=== PATIENT | female | born 1975 | race Caucasian/White ===

== ENCOUNTER 2017-02-09 03:56 | Emergency (ER) | payer MEDICARE, MEDICAID ==
[2017-02-09] MEDS ORDERED: Ketorolac INJ* 60 MG/2 ML VIAL IM ONE (04:31)
[2017-02-09 04:58] LABS: Hematocrit 42 % (35-47); Hemoglobin 14.1 g/dl (12.0-16.0); Mean Corpuscular HGB Conc 33 g/dl (31-36); Mean Corpuscular Hemoglobin 28 pg (27-31); Mean Corpuscular Volume 85 fL (80-97); Mean Platelet Volume 9 um3 (7.4-10.4); Red Cell Distribution Width 14 % (10.5-15); White Blood Count 9.4 10^3/ul (3.5-10.8)
[2017-02-09] MEDS ORDERED: NS 0.9% 1000 ML* 1,000 ML IV ONE (05:01)
[2017-02-09 05:02] LABS: Albumin 3.7 g/dL (3.2-5.2); BUN/Creatinine Ratio 11.4 (8-20); Calcium 8.6 mg/dL (8.6-10.3); EGFR African American 103.7 (>60); EGFR Non-African American 80.6 (>60); Globulin 2.8 g/dL (2-4); Potassium 3.6 mmol/L (3.5-5.0); Total Bilirubin 0.4 mg/dL (0.2-1.0); Total Protein 6.5 g/dL (6.4-8.9)
[2017-02-09] MEDS ORDERED: Azithromycin TAB* 250 MG PO ONE (05:34)
--- NOTE | 2017-02-09 05:34 | ED ---
I, Brad,Harmony, scribed for Nickolas Lind MD on 02/09/17 at 0434 . HPI Chest Pain - HPI Summary HPI Summary: This 42 y/o female presents to ED for acute onset of CP and SOB since 0130 AM tonight. Pt reports productive cough with green sputum production and subjective fever, but denies that CP is related to cough. Oxygen saturation was 100% on RA, and temperature was 98.9 F at triage. Pt has not taken any APAP or motrin to control her pain/fever. PMHx includes unspecified liver dz, gastric sleeve, anxiety, and depression. Pt is former smoker and nondrinker. - History of Current Complaint Chief Complaint: EDUpperRespComplaint Time Seen by Provider: 02/09/17 04:27 Hx Obtained From: Patient Onset/Duration: Started Hours Ago, Atraumatic, Still Present Timing: Constant Pain Intensity: 5 Pain Scale Used: 0-10 Numeric Chest Pain Location: Diffuse Chest Pain Radiates: No Character: Dull/Aching Aggravating Factor(s): Nothing Alleviating Factor(s): Nothing Associated Signs and Symptoms: Positive: Chest Pain, Shortness of Breath, Fever - subjective fever, Productive Cough - with green sputum production - Allergy/Home Medications Allergies/Adverse Reactions: Allergies Allergy/AdvReac Type Severity Reaction Status Date / Time Diphenhydramine Allergy Severe Tachycardia Verified 08/29/16 18:09 [From Benadryl] Prednisone Allergy Severe Hives Verified 08/29/16 18:09 Hydrocodone Allergy Hives Verified 08/29/16 18:09 invluenza vaccine Allergy Severe Hives Uncoded 11/10/12 17:47 pickles Allergy Severe Hives Uncoded 11/10/12 17:48 PPD Allergy Severe Hives Uncoded 11/10/12 17:47 PMH/Surg Hx/FS Hx/Imm Hx Endocrine/Hematology History: Reports: Hx Diabetes - type 2 Denies: Hx Thyroid Disease Cardiovascular History: Denies: Hx Hypertension Respiratory History: Denies: Hx Asthma, Hx Chronic Obstructive Pulmonary Disease (COPD) GI History: Denies: Hx Ulcer Musculoskeletal History: Denies: Hx Rheumatoid Arthritis, Hx Osteoporosis - Surgical History Surgery Procedure, Year, and Place: gastric sleve 06/27/15 Infectious Disease History: No Infectious Disease History: Denies: Hx Hepatitis, Hx Human Immunodeficiency Virus (HIV), Hx of Known/ Suspected MRSA, Traveled Outside the [place] in Last 30 Days - Family History Known Family History: Positive: Hypertension, Diabetes - Social History Alcohol Use: None Hx Substance Use: No Substance Use Type: Reports: None Substance Use Comment - Amount & Last Used: oxycodone Hx Tobacco Use: Yes Smoking Status (MU): Former Smoker Review of Systems Positive: Fever - subjective fever. Afebrile at triage Positive: Chest Pain - unrelated to cough Positive: Shortness Of Breath, Cough - productive cough with green sputum All Other Systems Reviewed And Are Negative: Yes Physical Exam Triage Information Reviewed: Yes Vital Signs On Initial Exam: Initial Vitals Temp Pulse Resp BP Pulse Ox 98.9 F 118 18 135/86 100 02/09/17 03:59 02/09/17 03:59 02/09/17 03:59 02/09/17 03:59 02/09/17 03:59 Vital Signs Reviewed: Yes Appearance: Positive: Well-Appearing, Pain Distress - mild discomfort Skin: Positive: Warm Head/Face: Positive: Normal Head/Face Inspection Eyes: Positive: CHRISTINE ENT: Positive: Hearing grossly normal Neck: Positive: Supple Respiratory/Lung Sounds: Positive: Breath Sounds Present, Rhonchi - few lower lung field rt>lt Cardiovascular: Positive: Tachycardia Abdomen Description: Positive: Nontender, Soft Bowel Sounds: Positive: Present Musculoskeletal: Positive: Strength/ROM Intact Neurological: Positive: Alert, Oriented to Person Place, Time Diagnostics - Vital Signs Vital Signs Temp Pulse Resp BP Pulse Ox 02/09/17 04:14 98.9 F 118 18 135/86 100 02/09/17 03:59 98.9 F 118 18 135/86 100 - Laboratory Lab Results: Lab Results 02/09/17 02/09/17 Range/Units 04:40 04:40 WBC 9.4 (3.5-10.8) 10^3/ul RBC 5.00 (4.0-5.4) 10^6/ul Hgb 14.1 (12.0-16.0) g/dl Hct 42 (35-47) % MCV 85 (80-97) fL MCH 28 (27-31) pg MCHC 33 (31-36) g/dl RDW 14 (10.5-15) % Plt Count 182 (150-450) 10^3/ul MPV 9 (7.4-10.4) um3 Neut % (Auto) 88.0 H (38-83) % Lymph % (Auto) 7.7 L (25-47) % Blanco % (Auto) 3.3 (1-9) % Eos % (Auto) 0.7 (0-6) % Baso % (Auto) 0.3 (0-2) % Absolute Neuts (auto) 8.2 H (1.5-7.7) 10^3/ul Absolute Lymphs (auto) 0.7 L (1.0-4.8) 10^3/ul Absolute Monos (auto) 0.3 (0-0.8) 10^3/ul Absolute Eos (auto) 0.1 (0-0.6) 10^3/ul Absolute Basos (auto) 0 (0-0.2) 10^3/ul Absolute Nucleated RBC 0 10^3/ul Nucleated RBC % 0 Sodium 136 (133-145) mmol/L Potassium 3.6 (3.5-5.0) mmol/L Chloride 104 (101-111) mmol/L Carbon Dioxide 24 (22-32) mmol/L Anion Gap 8 (2-11) mmol/L BUN 9 (6-24) mg/dL Creatinine 0.79 (0.51-0.95) mg/dL Est GFR ( Amer) 103.7 (>60) Est GFR (Non-Af Amer) 80.6 (>60) BUN/Creatinine Ratio 11.4 (8-20) Glucose 176 H (70-100) mg/dL Calcium 8.6 (8.6-10.3) mg/dL Total Bilirubin 0.40 (0.2-1.0) mg/dL AST 16 (13-39) U/L ALT 15 (7-52) U/L Alkaline Phosphatase 84 (34-104) U/L Total Protein 6.5 (6.4-8.9) g/dL Albumin 3.7 (3.2-5.2) g/dL Globulin 2.8 (2-4) g/dL Albumin/Globulin Ratio 1.3 (1-3) Result Diagrams: 02/09/17 04:40 02/09/17 04:40 Lab Statement: Any lab studies that have been ordered have been reviewed, and results considered in the medical decision making process. - Radiology CXR Radiology Interpretation Completed By: ED Physician - rll infiltrate Re-Evaluation - Re-Evaluation First Eval Change: Improved - pt feels better o2 95% with ambulation, but pt remains tachycardic. offered pt admission but pt states wants to go home as she has a 9yo autistic child. Advised to return to ed if sxs do not improve or worsen Chest Pain Course/Dx - Diagnoses Provider Diagnoses: Pneumonia Discharge - Discharge Plan Condition: Fair Disposition: HOME Prescriptions: Azithromycin TAB* [Zithromax TAB (Z-KVNG) 250 mg #6 tabs] 250 mg PO DAILY #7 tab Patient Education Materials: Azithromycin (By mouth), Pneumonia (ED) Forms: *Work Release Referrals: Maryjo Waldron MD [Primary Care Provider] - 2 Days Additional Instructions: Be sure to return to Emergency Department if your symptoms persist or worsen. The documentation as recorded by the Brad vann Soohyun accurately reflects the service I personally performed and the decisions made by me, Nickolas Lind MD.
[2017-02-09] MEDS ORDERED: Azithromycin IV(*) 500 MG in NS 0.9% 250 ML* 250 ML IVPB ONE (05:42)
[2017-02-09 06:33] VITALS: BP 115/86
--- NOTE | 2017-02-09 08:06 | RAD ---
Indication: Cough. Comparison is made with previous exam dated May 11, 2009. 2 views of the chest including dual energy PA views demonstrate no mediastinal shift. Airspace disease in the right base is noted. Findings are consistent with right basilar pneumonia. Left lung field is clear. IMPRESSION: Airspace disease in the right base consistent with right basilar pneumonia.
== END 2017-02-09 06:33 | disposition home or self-care (01) ==
LOC: ED 03:56
DX: J18.9 Pneumonia, unspecified organism (principal); R07.9 Chest pain, unspecified; R06.02 Shortness of breath; R50.9 Fever, unspecified; R05 Cough; Z87.891 Personal history of nicotine dependence
CPT/HCPCS: 36415; 71020; 80053; 85025; 96372; 99283; J0456; J1885

== ENCOUNTER 2017-02-09 16:36 | Inpatient (IN) | payer MEDICARE, MEDICAID ==
[2017-02-09] MEDS ORDERED: NS 0.9% 1000 ML* 1,000 ML IV ONE (18:31)
[2017-02-09] MEDS ORDERED: oxyCODONE TAB* 5 MG TAB PO ONE (19:03)
[2017-02-09] MEDS ORDERED: Ketorolac INJ* 30 MG/ML 1 ML VIAL IV PUSH ONE (19:03)
[2017-02-09 19:05] LABS: Hematocrit 39 % (35-47); Hemoglobin 12.8 g/dl (12.0-16.0); Mean Corpuscular HGB Conc 33 g/dl (31-36); Mean Corpuscular Hemoglobin 28 pg (27-31); Mean Corpuscular Volume 86 fL (80-97); Mean Platelet Volume 9 um3 (7.4-10.4); Red Blood Count 4.57 10^6/ul (4.0-5.4); Red Cell Distribution Width 14 % (10.5-15); White Blood Count 18.6 10^3/ul (3.5-10.8)
[2017-02-09 19:22] LABS: Albumin 3.3 g/dL (3.2-5.2); BUN/Creatinine Ratio 17.4 (8-20); Calcium 8.8 mg/dL (8.6-10.3); EGFR African American 121.2 (>60); EGFR Non-African American 94.2 (>60); Globulin 2.7 g/dL (2-4); Potassium 3.8 mmol/L (3.5-5.0); Total Bilirubin 0.5 mg/dL (0.2-1.0)
[2017-02-09] MEDS ORDERED: Ibuprofen TAB* 400 MG PO PRN (20:49)
[2017-02-09] MEDS ORDERED: Dextrose 50% Syringe 50 ML* 25 GM/50 ML SYRINGE IV PUSH PRN (20:49)
[2017-02-09] MEDS: Insulin LISPRO* 1 UNITS UNIT SUBCUT SCH (21:16)
[2017-02-09] MEDS ORDERED: Azithromycin IV* 500 MG ADVAN VIAL IVPB ONE (21:19)
[2017-02-09] MEDS: Azithromycin IV(*) 500 MG in NS 0.9% 250 ML* 250 ML IVPB SCH (21:21)
--- NOTE | 2017-02-09 21:22 | ED ---
Aida Jordan Erika, scribed for James Jay MD on 02/09/17 at 1954 . Respiratory - HPI Summary HPI Summary: Patient is a 42-year-old female presenting to the ED with a CC of cough. Patient reports that she was seen in the ED early this morning, and was diagnosed with pneumonia after CXR. She states she declined admission at that time. She reports that chest pain has improved since this morning, and SOB is unchanged. Patient also reports subjective fever, nausea, and dry-heaving - pt states she cannot vomit s/p gastric sleeve. She came back in today because she woke up at 15:00 today and coughed blood-tinged sputum, so came back to the ED. Pt reports she did take her Z-pac dose today. Patient also reports chronic back pain s/p injury, and reports she usually takes 5 mg oxycodone 4x/day, but did not take it since last night. Hx DM, benign masses on liver. - History of Current Complaint Chief Complaint: EDUpperRespComplaint Stated Complaint: DX PNEUMONIA/WORSENING SYMPTOMS Time Seen by Provider: 02/09/17 18:27 Hx Obtained From: Patient Onset/Duration: Gradual Onset, Still Present Timing: Constant Current Severity: Moderate Pain Intensity: 6 Character: Cough (Productive) Sputum Amount: Moderate Sputum Color: Green, Spencer-Tinged Aggravating Factor(s): Deep Breaths Associated Signs and Symptoms: Fever - subjective, SOB, Chest Pain with Cough - Allergy/Home Medications Allergies/Adverse Reactions: Allergies Allergy/AdvReac Type Severity Reaction Status Date / Time Diphenhydramine Allergy Severe Tachycardia Verified 02/09/17 16:53 [From Benadryl] Prednisone Allergy Severe Hives Verified 02/09/17 16:53 Hydrocodone Allergy Hives Verified 02/09/17 16:53 invluenza vaccine Allergy Severe Hives Uncoded 02/09/17 16:53 pickles Allergy Severe Hives Uncoded 02/09/17 16:53 PPD Allergy Severe Hives Uncoded 02/09/17 16:53 bleach Allergy Hives Uncoded 02/09/17 16:53 PMH/Surg Hx/FS Hx/Imm Hx Endocrine/Hematology History: Reports: Hx Diabetes - type 2 Denies: Hx Thyroid Disease Cardiovascular History: Denies: Hx Hypertension Respiratory History: Denies: Hx Asthma, Hx Chronic Obstructive Pulmonary Disease (COPD) GI History: Denies: Hx Ulcer Musculoskeletal History: Denies: Hx Rheumatoid Arthritis, Hx Osteoporosis - Surgical History Surgery Procedure, Year, and Place: gastric sleve 06/27/15 Infectious Disease History: No Infectious Disease History: Denies: Hx Hepatitis, Hx Human Immunodeficiency Virus (HIV), Hx of Known/ Suspected MRSA, Traveled Outside the [place] in Last 30 Days - Family History Known Family History: Positive: Hypertension, Diabetes - Social History Alcohol Use: None Hx Substance Use: No Substance Use Type: Reports: Prescribed Substance Use Comment - Amount & Last Used: oxycodone Hx Tobacco Use: Yes Smoking Status (MU): Former Smoker Review of Systems Positive: Fever - subjective Positive: Chest Pain Positive: Shortness Of Breath, Cough Positive: Nausea - with dry-heaving All Other Systems Reviewed And Are Negative: Yes Physical Exam Triage Information Reviewed: Yes Vital Signs On Initial Exam: Initial Vitals Temp Pulse Resp BP Pulse Ox 97.6 F 123 20 131/71 99 02/09/17 16:39 02/09/17 16:39 02/09/17 16:39 02/09/17 16:39 02/09/17 16:39 Vital Signs Reviewed: Yes Appearance: Positive: Well-Appearing, No Pain Distress, Obese Skin: Positive: Warm, Skin Color Reflects Adequate Perfusion, Soft Head/Face: Positive: Normal Head/Face Inspection Eyes: Positive: EOMI, CHRISTINE, Conjunctiva Clear ENT: Positive: Pharynx normal, TMs normal Neck: Positive: Supple, Nontender Respiratory/Lung Sounds: Positive: Breath Sounds Present, Other - Right sided basilar crackles. Negative: Wheezes Cardiovascular: Positive: Pulses are Symmetrical in both Upper and Lower Extremities, Tachycardia. Negative: Murmur, Rub Abdomen Description: Positive: Nontender, No Organomegaly, Soft. Negative: Distended, Guarding, Peritoneal Signs Bowel Sounds: Positive: Present Musculoskeletal: Positive: Strength/ROM Intact Neurological: Positive: Sensory/Motor Intact, Alert, Oriented to Person Place, Time, Normal Gait. Negative: Cerebellar Dysfunction Psychiatric: Positive: Affect/Mood Appropriate - Deepti Coma Scale Coma Scale Total: 15 Diagnostics - Vital Signs Vital Signs Temp Pulse Resp BP Pulse Ox 02/09/17 18:00 118 108/62 97 02/09/17 17:30 110 115/71 93 02/09/17 17:00 112 109/71 95 02/09/17 16:58 18 02/09/17 16:52 113 96 02/09/17 16:50 114/76 02/09/17 16:47 98.3 F 111 18 114/76 94 02/09/17 16:39 97.6 F 123 20 131/71 99 - Laboratory Lab Results: Lab Results 02/09/17 02/09/17 02/09/17 Range/Units 18:55 18:55 18:55 WBC 18.6 H (3.5-10.8) 10^3/ul RBC 4.57 (4.0-5.4) 10^6/ul Hgb 12.8 (12.0-16.0) g/dl Hct 39 (35-47) % MCV 86 (80-97) fL MCH 28 (27-31) pg MCHC 33 (31-36) g/dl RDW 14 (10.5-15) % Plt Count 180 (150-450) 10^3/ul MPV 9 (7.4-10.4) um3 Sodium 137 (133-145) mmol/L Potassium 3.8 (3.5-5.0) mmol/L Chloride 106 (101-111) mmol/L Carbon Dioxide 27 (22-32) mmol/L Anion Gap 4 (2-11) mmol/L BUN 12 (6-24) mg/dL Creatinine 0.69 (0.51-0.95) mg/dL Est GFR ( Amer) 121.2 (>60) Est GFR (Non-Af Amer) 94.2 (>60) BUN/Creatinine Ratio 17.4 (8-20) Glucose 170 H (70-100) mg/dL Lactic Acid 2.1 H* (0.5-2.0) mmol/L Calcium 8.8 (8.6-10.3) mg/dL Total Bilirubin 0.50 (0.2-1.0) mg/dL AST 11 L (13-39) U/L ALT 13 (7-52) U/L Alkaline Phosphatase 70 (34-104) U/L Total Protein 6.0 L (6.4-8.9) g/dL Albumin 3.3 (3.2-5.2) g/dL Globulin 2.7 (2-4) g/dL Albumin/Globulin Ratio 1.2 (1-3) Result Diagrams: 02/09/17 18:55 02/09/17 18:55 Lab Statement: Any lab studies that have been ordered have been reviewed, and results considered in the medical decision making process. Re-Evaluation - Re-Evaluation First Eval Re-Evaluation Time: 19:51 Comment: Patient's O2 Sat drops to 84-86 when talking to her. Patient will be admitted. Disposition - Diagnoses Provider Diagnoses: Pneumonia, Hypoxia, Tachycardia - Physician Notifications Discussed Care Of Patient With: Dr. Guzman (hospitalist) at 19:54 - agrees to admit Discharge - Discharge Plan Condition: Stable Disposition: ADMITTED TO [facility] The documentation as recorded by the Aida vann Erika accurately reflects the service I personally performed and the decisions made by Pierre barfield Afoma Frances, MD.
[2017-02-09] MEDS: BIOTIN 10000 MCG PO SCH (22:24)
[2017-02-09] MEDS: tiZANidine TAB* 2 MG PO SCH (23:05)
[2017-02-09] MEDS: traZODone TAB* 50 MG TAB PO SCH (23:05)
[2017-02-09] MEDS: Heparin VIAL(*) 5000 UNITS/ML VIAL (FIVE THOUSAND) SUBCUT SCH (23:06)
[2017-02-09] MEDS: cefTRIAXone VIAL(*) 1,000 MG in NS 0.9% 50 ML* 50 ML IVPB SCH (23:08)
[2017-02-10] MEDS: oxyCODONE TAB* 5 MG TAB PO SCH ×5 (00:27→19:29)
--- NOTE | 2017-02-10 04:34 | HP ---
HISTORY AND PHYSICAL: DATE OF ADMISSION: 02/09/17 CHIEF COMPLAINT: Cough and shortness of breath. HISTORY OF PRESENT ILLNESS: The patient is a 42-year-old woman who says she has recently had an upper respiratory infection and actually thought it was just allergies. She had been taking Zyrtec and Robitussin for which seemed to be helping. She also notes however that her son and had flu-like symptoms recent and had just gotten over that. However, she did have a runny nose and a cough that was productive of some yellow phlegm, but again she thought it was not infectious. This morning however she woke up and had significant chest pain and shortness of breath. It got to the point where she came to the hospital for evaluation. At that point, she had a chest x-ray, which did show a right lower lobe pneumonia. She was offered admission but declined at that time because she was feeling better. She had no wheezing and her chest pain had resolved with some Xanax she received in the ED. However, as the day progressed, she began to feel worse. She noticed she had a fever and had chills and sweats. She also woke up and took her Zithromax, which was prescribed to her in the ER and coughed up some blood-tinged sputum. She also noticed her rate was quite fast consistently over 100 and came back to the ER to accept admission. PAST MEDICAL HISTORY: She has a past medical history significant for masses in her liver which are being monitored annually, diabetes mellitus type 2, back injury giving her chronic back pain and anxiety. MEDICATIONS: Her current medications are as follows: 1. Metformin 500 mg twice daily. 2. Biotin 10,000 mcg twice daily. 3. Z-Go which she just received early 250 mg daily. 4. Xanax 0.25 mg 4 times a day as needed. 5. Lexapro 20 mg daily. 6. Trazodone 50 mg at bedtime. 7. Tizanidine 1 capsule at bedtime. 8. Oxycodone XR 5 mg 4 times a day. ALLERGIES: She has an allergy/adverse reaction to BENADRYL, PREDNISONE, HYDROCODONE, INFLUENZA VACCINE, PICKLES, PPD TEST and BLEACH. FAMILY HISTORY: She is adopted. SOCIAL HISTORY: Quit tobacco 8 years ago. Smoked a pack a day for 18 years. No alcohol or recreational drug use. She is on disability. She is . Her , Bret White, is her healthcare proxy. She has one child who has autism. REVIEW OF SYSTEMS: A 14-point review of systems was completed with the patient. All pertinent positives and negatives are in the history of present illness, otherwise it is negative. PHYSICAL EXAMINATION GENERAL: Pleasant woman, lying in bed, in no acute distress. VITAL SIGNS: Temperature 98.7 degrees, heart rate 119 beats per minute, respiratory rate 16 breaths per minute, pulse ox 95%, blood pressure 113/84. HEENT: Normocephalic, atraumatic. Pupils equal, round and reactive to light. Moist mucous membranes. NECK: Supple. No JVD, bruits, palpable thyroid or lymphadenopathy. CHEST: Some minimal right basilar crackles. CARDIOVASCULAR: S1, S2 appreciated, increased rate, regular rhythm. ABDOMEN: Positive bowel sounds in all 4 quadrants. Soft, nontender, nondistended. No hepatosplenomegaly. EXTREMITIES: No cyanosis, clubbing or edema. +2 pulses bilaterally. NEUROLOGIC: Alert and oriented x3. He moves all extremities. SKIN: No rashes or abnormalities. DIAGNOSTIC STUDIES/LABORATORY DATA: White count 18.6, hemoglobin 12.8, hematocrit 39, platelets 180. Sodium 137, potassium 3.8, chloride 106, CO2 27, BUN 12, creatinine 0.69, glucose 170, lactic acid 2.1. Chest x-ray done earlier was interpreted by Radiology as air space disease in the right base consistent with right basilar pneumonia. IMPRESSION: 1. Right lower lobe pneumonia. Placed the patient on Rocephin 1 g IV daily and Zithromax 500 mg IV daily. Check sputum for culture and sensitivity. Urine for legionella and pneumococcal antigen. Tessalon Perles for cough and ibuprofen p.r.n. for fever and pain as she does want a Tylenol with her liver masses. The patient appears to be also septic from this pneumonia with a white count of 18.6, a heart rate of 124 and being febrile. 2. Anxiety. Stable. Continue Lexapro and Xanax. 3. Diabetes mellitus. Hold metformin. Placed her on fingersticks with sliding scale insulin. 4. FEN. Consistent carb diet. 5. DVT prophylaxis. Heparin subcu. 6. The patient is a full code. TIME SPENT: Over 75 minutes were spent on this H and P, more than 40 minutes was spent in direct face to face contact with the patient in evaluation, physical exam, counseling, coordination of care. CC: Dr. Waldron* [id number]/[facility] #: [id number] OFELIA
[2017-02-10] MEDS: Heparin VIAL(*) 5000 UNITS/ML VIAL (FIVE THOUSAND) SUBCUT SCH ×3 (04:44→22:24)
[2017-02-10 07:00] LABS: Hematocrit 35 % (35-47); Hemoglobin 11.4 g/dl (12.0-16.0); Mean Corpuscular HGB Conc 33 g/dl (31-36); Mean Corpuscular Hemoglobin 28 pg (27-31); Mean Corpuscular Volume 86 fL (80-97); Mean Platelet Volume 10 um3 (7.4-10.4); Red Blood Count 4.03 10^6/ul (4.0-5.4); Red Cell Distribution Width 14 % (10.5-15); White Blood Count 14.4 10^3/ul (3.5-10.8)
[2017-02-10 07:20] LABS: BUN/Creatinine Ratio 20.3 (8-20); Calcium 7.9 mg/dL (8.6-10.3); EGFR African American 132.2 (>60); EGFR Non-African American 102.8 (>60); Potassium 3.5 mmol/L (3.5-5.0)
[2017-02-10] MEDS: Citalopram TAB* 40 MG PO SCH (08:49)
[2017-02-10] MEDS: Insulin LISPRO* 1 UNITS UNIT SUBCUT SCH (08:49)
[2017-02-10] MEDS: BIOTIN 10000 MCG PO SCH ×2 (08:51→22:25)
--- NOTE | 2017-02-10 11:23 | PN ---
Subjective Date of Service: 02/10/17 Interval History: Patient seen this morning. States that her chest pain has resolved. Still with productive cough, thinks she may have had some blood-tinge to the sputum this AM once, but since then has been green. Denies SOB. Has been ambulating. Anxious to leave because she wants to go to her [employer] tonight. Family History: Unchanged from Admission Social History: Unchanged from Admission Past Medical History: Unchanged from Admission Objective Active Medications: Alprazolam (Xanax Tab*) 0.25 mg PO QID PRN Benzonatate (Tessalon Cap*) 200 mg PO TID PRN Citalopram Hydrobromide (Celexa Tab*) 40 mg PO DAILY DAVINA Dextrose (D50w Syringe 50 Ml*) 12.5 gm IV PUSH .FOR FS < 60 - SS PRN Heparin Sodium (Porcine) (Heparin Vial(*)) 5,000 units SUBCUT Q8HR DAVINA Sodium Chloride (Ns 0.9% 1000 Ml*) 1,000 mls @ 100 mls/hr IV PER RATE DAVINA Azithromycin 500 mg/ Sodium (Chloride) 250 mls @ 250 mls/hr IVPB Q24H DAVINA Ceftriaxone Sodium 1,000 mg/ (Sodium Chloride) 50 mls @ 200 mls/hr IVPB Q24H DAVINA Ibuprofen (Motrin Tab*) 400 mg PO Q6H PRN Insulin Human Lispro (Humalog*) 0 units SUBCUT ACHS DAVINA (Biotin [Biotin Maximum Strength] 10 ,000 Mcg) 10,000 mcg PO BID DAVINA Oxycodone HCl (Roxycodone Tab*) 5 mg PO QID DAVINA Tizanidine HCl (Zanaflex Tab*) 4 mg PO BEDTIME DAVINA Trazodone HCl (Desyrel Tab*) 50 mg PO BEDTIME DAVINA Vital Signs 02/09/17 02/09/17 02/09/17 21:00 21:19 21:30 Temperature Pulse Rate 115 110 110 Respiratory Rate Blood Pressure 97/82 100/55 97/52 (mmHg) O2 Sat by Pulse 95 96 96 Oximetry 02/09/17 02/09/17 02/09/17 21:44 21:51 22:29 Temperature 98.7 F 98.0 F Pulse Rate 119 108 Respiratory 16 Rate Blood Pressure 113/84 107/69 (mmHg) O2 Sat by Pulse 95 93 Oximetry 02/10/17 02/10/17 02/10/17 03:39 06:40 07:50 Temperature 98.4 F 98.1 F Pulse Rate 82 102 Respiratory 16 16 16 Rate Blood Pressure 95/59 109/92 (mmHg) O2 Sat by Pulse 93 Oximetry Oxygen Devices in Use Now: None Appearance: Middle-aged, F, laying in bed in NAD Eyes: No Scleral Icterus Ears/Nose/Mouth/Throat: Mucous Membranes Moist Neck: NL Appearance and Movements; NL JVP Respiratory: Symmetrical Chest Expansion and Respiratory Effort, - - Rales in RML and RLL ward, good air movement Cardiovascular: NL Sounds; No Murmurs; No JVD, - - Mild tachycardia Abdominal: NL Sounds; No Tenderness; No Distention Lymphatic: No Cervical Adenopathy Extremities: No Edema Skin: No Rash or Ulcers Neurological: Alert and Oriented x 3 Result Diagrams: 02/10/17 06:21 02/10/17 06:21 Additional Lab and Data: Assess/Plan/Problems-Billing Assessment: CAP in a 42 yo F with hx of DM, chronic pain and anxiety - Patient Problems (1) CAP (community acquired pneumonia) Current Visit: Yes Comment: Leukocytosis persistent but improving. Continues to have some tachycardia this morning. Will continue IV CTX/Azithromycin for another 24 hours. Urine antigens pending. Continue IVF. (2) Diabetes Current Visit: Yes Comment: Resume home Metformin. Stop HISS. (3) Chronic pain Current Visit: Yes Comment: Continue home Oxycodone and Tizanidine (4) DVT prophylaxis Current Visit: Yes Comment: HSQ Status and Disposition: Inpatient for IV Abx
[2017-02-10] MEDS: metFORMIN* 500 MG TAB PO SCH ×2 (12:04→17:14)
[2017-02-10] MEDS: NS 0.9% 1000 ML* 1,000 ML IV SCH ×2 (12:04→22:21)
[2017-02-10] MEDS: Benzonatate CAP* 100 MG PO PRN (19:29)
[2017-02-10] MEDS: ALPRAZolam TAB* 0.25 MG PO PRN (22:21)
[2017-02-10] MEDS: cefTRIAXone VIAL(*) 1,000 MG in NS 0.9% 50 ML* 50 ML IVPB SCH (22:21)
[2017-02-10] MEDS: traZODone TAB* 50 MG TAB PO SCH (22:21)
[2017-02-10] MEDS: tiZANidine TAB* 2 MG PO SCH (22:21)
[2017-02-10] MEDS: Azithromycin IV(*) 500 MG in NS 0.9% 250 ML* 250 ML IVPB SCH (22:46)
[2017-02-11] MEDS: Heparin VIAL(*) 5000 UNITS/ML VIAL (FIVE THOUSAND) SUBCUT SCH (04:43)
[2017-02-11] MEDS: oxyCODONE TAB* 5 MG TAB PO SCH ×2 (06:28→07:33)
[2017-02-11] MEDS: BIOTIN 10000 MCG PO SCH (07:23)
[2017-02-11] MEDS: metFORMIN* 500 MG TAB PO SCH (07:32)
[2017-02-11] MEDS: Benzonatate CAP* 100 MG PO PRN (07:32)
[2017-02-11] MEDS: Citalopram TAB* 40 MG PO SCH (07:32)
[2017-02-11] MEDS: ALPRAZolam TAB* 0.25 MG PO PRN (07:32)
[2017-02-11 07:38] VITALS: BP 120/76
[2017-02-11 08:25] LABS: Hematocrit 35 % (35-47); Hemoglobin 11.7 g/dl (12.0-16.0); Mean Corpuscular HGB Conc 33 g/dl (31-36); Mean Corpuscular Hemoglobin 28 pg (27-31); Mean Corpuscular Volume 85 fL (80-97); Mean Platelet Volume 9 um3 (7.4-10.4); Red Blood Count 4.12 10^6/ul (4.0-5.4); Red Cell Distribution Width 14 % (10.5-15); White Blood Count 9.8 10^3/ul (3.5-10.8)
--- NOTE | 2017-02-11 09:00 | DCNOTE ---
Patient seen this morning. Reports feeling better overall, cough improved. Still with some SOB when ambulating but not significant. Anxious to go home. On exam, RRR, s1 ands s2 present, no m/g/r, lungs with some mild RLL rales, good air movement Tachycardia and leukocytosis resolved. Patient has azithromycin at home. Will rx additional Cefpodoxime and discharge home. Should f/u with PCP.
--- NOTE | 2017-02-11 22:49 | DS ---
DISCHARGE SUMMARY: DATE OF ADMISSION: 02/09/17 DATE OF DISCHARGE: 02/11/17 PCP: Maryjo Waldron MD PRINCIPAL DISCHARGE DIAGNOSIS: Community-acquired pneumonia. SECONDARY DIAGNOSES: 1. Type 2 diabetes. 2. Chronic back pain. 3. Anxiety. DISCHARGE MEDICATION REGIMEN: 1. Cefpodoxime 200 mg by mouth 2 times daily. 2. Oxycodone 5 mg by mouth 4 times daily. 3. Tizanidine 4 mg by mouth at bedtime. 4. Trazodone 50 mg by mouth at bedtime. 5. Lexapro 20 mg by mouth daily. 6. Xanax 0.25 mg by mouth 4 times daily as needed for anxiety. 7. Azithromycin 250 mg by mouth daily. 8. Biotin 10,000 mcg by mouth 2 times daily. 9. Metformin 500 mg by mouth 2 times daily. STUDIES DONE: Chest x-ray. Impression: Airspace disease in the right base consistent with right basilar pneumonia. HPI AND HOSPITAL SUMMARY: Please see the full history and physical by Dr. Reji Guzman for full details. Briefly, Ms. White is a 42-year-old female with the past medical history as above who presented to the hospital with cough, URI symptoms, and chest pain. The patient was initially seen in the ED on 02/09/17 , early in the morning was diagnosed with pneumonia. She did not want to stay in the hospital, so she was sent home on azithromycin. However, over the day and into the evening, her symptoms worsened and she came back to the hospital. At that time, she was noted to be tachycardic, had a white blood cell count of 18. She was admitted to the hospital for IV antibiotics. She received ceftriaxone and azithromycin. The following day, she had improvement in her symptoms, resolution of her leukocytosis and tachycardia. She will be discharged home on oral cefpodoxime in addition to azithromycin, she was previously sent home on. TIME SPENT: Total time spent on this discharge 45 minutes. This is the summary of the hospitalization, please see the full medical record for further details. CC: Dr. Waldron* [id number]/[facility] #: [id number] MTDD
== END 2017-02-11 09:45 | disposition home or self-care (01) | DRG 195 ==
LOC: ED 16:36 → MED 20:49
PROVIDERS: ADMIT Internal Medicine; ATTEND Hospitalist
DX: J18.9 Pneumonia, unspecified organism (principal); E11.9 Type 2 diabetes mellitus without complications; F41.9 Anxiety disorder, unspecified; G89.29 Other chronic pain; E66.9 Obesity, unspecified; Z68.36 Body mass index [BMI] 36.0-36.9, adult; Z98.84 Bariatric surgery status; Z88.5 Allergy status to narcotic agent; Z88.8 Allergy status to other drugs, medicaments and biological substances; Z83.3 Family history of diabetes mellitus; Z82.49 Family history of ischemic heart disease and other diseases of the circulatory system; Z87.891 Personal history of nicotine dependence; Z79.84 Long term (current) use of oral hypoglycemic drugs
CPT/HCPCS: 36415; 71020; 80048; 80053; 83605; 85025; 85027; 85379; 87070; 87077; 87205; 87899; 96372; 99283; A9270-GY; J0456; J0696; J1885

== ENCOUNTER 2017-09-28 18:16 | Emergency (ER) | payer MEDICARE ==
[2017-09-28 18:31] VITALS: BP 114/70
--- NOTE | 2017-09-28 19:08 | RAD ---
INDICATION: Right ankle injury COMPARISON: None TECHNIQUE: AP, lateral, and oblique views were obtained. FINDINGS: There is no acute fracture. There is an old avulsion injury from the medial malleolus or this represents an ossicle. Ankle mortise is intact. There is minor lateral soft tissue swelling. IMPRESSION: NO ACUTE FRACTURE.
--- NOTE | 2017-09-28 19:18 | UC ---
Lower Extremity/Ankle HPI - HPI Summary HPI Summary: RIGHT ANKLE INVERSION INJURY TWO NIGHTS AGO. PAIN IN ANKLE WITH AMBULATION. INJURY AGAIN TODAY WITH CONTINUED SPELLING. - History of Current Complaint Chief Complaint: UCLowerExtremity Stated Complaint: RIGHT ANKLE INJURY Time Seen by Provider: 09/28/17 18:32 Hx Obtained From: Patient Hx Last Menstrual Period: CURRENT Onset/Duration: Gradual Onset, Lasting Days, Worse Since - TODAY Severity Initially: Moderate Severity Currently: Moderate Aggravating Factor(s): Standing, Ambulation Able to Bear Weight: Yes - WITH PAIN - Risk Factors Gout Risk Factors: Negative DVT Risk Factors: Negative Septic Arthritis Risk Factor: Negative - Allergies/Home Medications Allergies/Adverse Reactions: Allergies Allergy/AdvReac Type Severity Reaction Status Date / Time Diphenhydramine Allergy Severe Tachycardia Verified 08/31/17 18:55 [From Benadryl] Prednisone Allergy Severe Hives Verified 08/31/17 18:55 Hydrocodone Allergy Hives Verified 08/31/17 18:55 Pneumococcal Polysaccharides Allergy Anaphylatic Verified 09/28/17 18:31 [From Pneumovax] Shock invluenza vaccine Allergy Severe Hives Uncoded 08/31/17 18:55 pickles Allergy Severe Hives Uncoded 08/31/17 18:55 PPD Allergy Severe Hives Uncoded 08/31/17 18:55 bleach Allergy Hives Uncoded 08/31/17 18:55 PMH/Surg Hx/FS Hx/Imm Hx Previously Healthy: Yes - Surgical History Surgical History: Yes Surgery Procedure, Year, and Place: gastric sleve 06/27/15 - Family History Known Family History: Positive: Hypertension, Diabetes - Social History Occupation: Employed Full-time Lives: With Family Alcohol Use: None Substance Use Type: Prescribed Substance Use Comment - Amount & Last Used: oxycodone Smoking Status (MU): Former Smoker When Did the Patient Quit Smoking/Using Tobacco: 2007 - Immunization History Most Recent Influenza Vaccination: doesn't get--allergic Most Recent Pneumonia Vaccination: none Review of Systems Constitutional: Negative Skin: Negative Eyes: Negative ENT: Negative Respiratory: Negative Cardiovascular: Negative Gastrointestinal: Negative Genitourinary: Negative Motor: Negative Neurovascular: Negative Musculoskeletal: Arthralgia, Edema - RIGHT LATERAL ANKLE, Myalgia Neurological: Negative Psychological: Negative Is Patient Immunocompromised?: No All Other Systems Reviewed And Are Negative: Yes Physical Exam Triage Information Reviewed: Yes Appearance: Well-Appearing, No Pain Distress, Well-Nourished Vital Signs: Initial Vital Signs Temp 98.2 F 09/28/17 18:23 Pulse 88 09/28/17 18:23 Resp 16 09/28/17 18:23 BP 114/70 09/28/17 18:23 Pulse Ox 99 09/28/17 18:23 Vital Signs Reviewed: Yes Eye Exam: Normal ENT Exam: Normal ENT: Positive: Normal ENT inspection Dental Exam: Normal Neck exam: Normal Neck: Positive: Supple, Nontender, No Lymphadenopathy Respiratory Exam: Normal Respiratory: Positive: Chest non-tender, Lungs clear, Normal breath sounds, No respiratory distress, No accessory muscle use Cardiovascular Exam: Normal Cardiovascular: Positive: RRR, No Murmur, Pulses Normal Abdominal Exam: Normal Abdomen Description: Positive: Nontender, No Organomegaly Musculoskeletal: Positive: Strength Intact, ROM Intact, Edema @ - RIGHT LATERAL ANKLE Neurological Exam: Normal Psychological Exam: Normal Skin Exam: Normal Lower Extremity Course/Dx - Differential Dx/Diagnosis Differential Diagnosis/HQI/PQRI: Fracture (Closed), Sprain, Strain Provider Diagnoses: RIGHT ANKLE SPRAIN Discharge - Discharge Plan Condition: Stable Disposition: HOME Patient Education Materials: Ankle Sprain (ED) Referrals: Cb Trujillo MD [Primary Care Provider] - Demetri Webb MD [Medical Doctor] - If Needed
== END 2017-09-28 19:30 | disposition home or self-care (01) ==
LOC: UCCORT 18:16
DX: S93.401A Sprain of unspecified ligament of right ankle, initial encounter (principal); X58.XXXA Exposure to other specified factors, initial encounter; Y93.9 Activity, unspecified; Y92.9 Unspecified place or not applicable; Z98.84 Bariatric surgery status; Z88.5 Allergy status to narcotic agent; Z88.7 Allergy status to serum and vaccine; Z88.8 Allergy status to other drugs, medicaments and biological substances; Z87.891 Personal history of nicotine dependence
CPT/HCPCS: 99213; G0463

== ENCOUNTER 2017-12-09 09:37 | Emergency (ER) | payer MEDICARE ==
[2017-12-09 09:55] VITALS: BP 114/72
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
--- NOTE | 2017-12-11 16:24 | UC ---
- Progress Note Progress Note: Call patient and assure wound on rt thumb is significantly improved---
== END 2017-12-09 11:32 | disposition home or self-care (01) ==
LOC: UCEAST 09:37
DX: L03.011 Cellulitis of right finger (principal); B95.61 Methicillin susceptible Staphylococcus aureus infection as the cause of diseases classified elsewhere; E11.9 Type 2 diabetes mellitus without complications; Z98.84 Bariatric surgery status; Z88.5 Allergy status to narcotic agent; Z88.7 Allergy status to serum and vaccine; Z88.8 Allergy status to other drugs, medicaments and biological substances; Z87.891 Personal history of nicotine dependence
CPT/HCPCS: 10060; 87070; 87077; 87186; 87205; 87640; 87641; 99212; G0463

== ENCOUNTER 2017-12-27 07:40 | Emergency (ER) | payer MEDICARE, OTHER ==
[2017-12-27 07:56] VITALS: BP 124/80
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
--- NOTE | 2017-12-27 08:45 | RAD ---
INDICATION: Right thumb pain COMPARISON: None TECHNIQUE: AP, lateral, and oblique views were obtained. FINDINGS: The bony structures, joint spaces, and soft tissues are normal for age. IMPRESSION: NO ACUTE BONY FINDINGS
--- NOTE | 2017-12-27 08:45 | RAD ---
INDICATION: Back pain COMPARISON: Lumbar spine October 08, 2011 TECHNIQUE: Routine PA, lateral, and oblique imaging was performed . FINDINGS: Bones: There are no acute bony findings. There are arthritic changes consisting of multilevel degenerative spurring at the thoracolumbar junction at the lower lumbar levels. Alignment: Normal Disc spaces: The disc spaces are well-maintained Soft tissues: There are no soft tissue abnormalities. IMPRESSION: MULTILEVEL DEGENERATIVE SPURRING. NO ACUTE FINDINGS
== END 2017-12-27 09:04 | disposition home or self-care (01) ==
LOC: UCEAST 07:40
DX: M54.5 Low back pain (principal); M79.644 Pain in right finger(s); M51.37 Other intervertebral disc degeneration, lumbosacral region; E11.9 Type 2 diabetes mellitus without complications; Z79.84 Long term (current) use of oral hypoglycemic drugs; F41.9 Anxiety disorder, unspecified; Z88.5 Allergy status to narcotic agent; Z88.7 Allergy status to serum and vaccine; Z88.8 Allergy status to other drugs, medicaments and biological substances; Z87.891 Personal history of nicotine dependence
CPT/HCPCS: 72110; 99211; G0463

== ENCOUNTER 2018-06-05 09:27 | Emergency (ER) | payer MEDICARE ==
[2018-06-05 09:38] VITALS: BP 149/95
[2018-06-05] MEDS ORDERED: Lidocaine/Epineph/Tetraca SOL* (LET solution) 4 ML BTL TOPICAL ONE (09:56)
--- NOTE | 2018-06-05 09:59 | UC ---
HPI Wound/Suture Re-check - HPI Summary HPI Summary: Patient has a nipple peircing in the right nipple one side of the bar has gone through the skin and is stuck - History Of Current Complaint Chief Complaint: UCGU Stated Complaint: PERSONAL Time Seen by Provider: 06/05/18 09:48 Hx Last Menstrual Period: 05/12 Onset/Duration: Sudden Onset, Lasting Days - 1 Severity: Mild Pain Intensity: 0 - Allergies/Home Medications Allergies/Adverse Reactions: Allergies Allergy/AdvReac Type Severity Reaction Status Date / Time diphenhydramine Allergy Intermediate Hives Verified 06/05/18 09:39 hydrocodone Allergy Intermediate Hives Verified 06/05/18 09:39 Influenza Virus Vaccines Allergy Intermediate Hives Verified 06/05/18 09:39 prednisone Allergy Intermediate Hives Verified 06/05/18 09:39 pneumococcal vaccine Allergy Hives Verified 06/05/18 09:39 invluenza vaccine Allergy Severe Hives Uncoded 06/05/18 09:39 pickles Allergy Severe Hives Uncoded 06/05/18 09:39 PPD Allergy Severe Hives Uncoded 06/05/18 09:39 bleach Allergy Hives Uncoded 06/05/18 09:39 PMH/Surg Hx/FS Hx/Imm Hx Previously Healthy: Yes - Surgical History Surgical History: Yes Surgery Procedure, Year, and Place: gastric sleve 06/27/15 - Family History Known Family History: Positive: Hypertension, Diabetes Family History: PT ADOPTED SO NOT CERTAIN OF FAMILY HX - Social History Alcohol Use: Rare Substance Use Type: None Substance Use Comment - Amount & Last Used: oxycodone Smoking Status (MU): Former Smoker Type: eCigarettes Length of Time of Smoking/Using Tobacco: 18 years When Did the Patient Quit Smoking/Using Tobacco: 2007 - Immunization History Most Recent Influenza Vaccination: doesn't get--allergic Most Recent Pneumonia Vaccination: none Review of Systems Constitutional: Negative Skin: Other - peircing issue Eyes: Negative ENT: Negative Respiratory: Negative Cardiovascular: Negative Gastrointestinal: Negative Genitourinary: Negative Motor: Negative Neurovascular: Negative Musculoskeletal: Negative Neurological: Negative Psychological: Negative Is Patient Immunocompromised?: No All Other Systems Reviewed And Are Negative: Yes Physical Exam Triage Information Reviewed: Yes Appearance: Well-Appearing, Well-Nourished, Pain Distress Vital Signs: Initial Vital Signs Temp 97.7 F 06/05/18 09:30 Pulse 111 06/05/18 09:30 Resp 18 06/05/18 09:30 BP 149/95 06/05/18 09:30 Pulse Ox 99 06/05/18 09:30 Vital Signs Reviewed: Yes Eye Exam: Normal ENT Exam: Normal Dental Exam: Normal Neck exam: Normal Respiratory Exam: Normal Respiratory: Positive: Chest non-tender, Lungs clear, Normal breath sounds Cardiovascular Exam: Normal Cardiovascular: Positive: RRR, No Murmur, Pulses Normal Abdominal Exam: Normal Abdomen Description: Positive: Nontender, No Organomegaly, Soft Bowel Sounds: Positive: Present Musculoskeletal Exam: Normal Neurological Exam: Normal Psychological Exam: Normal Skin: Positive: significant lesion(s) - right nipple peircing is stuck under the tissue, no redness or drainage noted Course/Dx - Course Course Of Treatment: hx obtained, exam performed, meds reviewed, LET applied, was able to push the peircing back through without difficulty. cleansed area. - Differential Dx - Laceration/Wound Differential Diagnoses: Other - peircing stuck Provider Diagnoses: FB in nipple Discharge - Sign-Out/Discharge Documenting (check all that apply): Patient Departure - Discharge Plan Condition: Stable Disposition: HOME Patient Education Materials: Acute Wound Care (ED) Referrals: Corey Sweeney NP [Primary Care Provider] - Additional Instructions: 1. keep the area cleansed, 2. apply neosporin to the wound twice a day for [address] a bigger end on the peircing 4. Follow up as needed. - Billing Disposition and Condition Condition: STABLE Disposition: Home
== END 2018-06-05 10:40 | disposition home or self-care (01) ==
LOC: UCEAST 09:27
DX: S20.151A Superficial foreign body of breast, right breast, initial encounter (principal); X58.XXXA Exposure to other specified factors, initial encounter; Y93.9 Activity, unspecified; Y92.9 Unspecified place or not applicable; Z88.5 Allergy status to narcotic agent; Z88.7 Allergy status to serum and vaccine; Z88.8 Allergy status to other drugs, medicaments and biological substances; Z87.891 Personal history of nicotine dependence
CPT/HCPCS: 99211; G0463

== ENCOUNTER 2018-06-20 17:26 | Emergency (ER) | payer MEDICARE ==
[2018-06-20] MEDS ORDERED: traMADol TAB* 50 MG PO ONE (18:14)
[2018-06-20] MEDS ORDERED: Morphine VIAL* 4 MG/ML VIAL (1 ml vial) IV ONE (18:53)
[2018-06-20] MEDS ORDERED: Morphine VIAL* 10 MG/ML 1 ML VIAL ONE (19:40)
[2018-06-20] MEDS ORDERED: Morphine VIAL* 10 MG/ML 1 ML VIAL IM ONE (19:42)
[2018-06-20 20:58] VITALS: BP 130/95
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
--- NOTE | 2018-06-21 07:49 | RAD ---
INDICATION: Right forearm pain COMPARISON: None TECHNIQUE: AP, lateral, and oblique views were obtained. FINDINGS: There is soft tissue swelling about the mid forearm. There is no acute fracture. IMPRESSION: SOFT TISSUE SWELLING. NO ACUTE FRACTURE. R0
--- NOTE | 2018-06-21 07:50 | RAD ---
INDICATION: Right arm pain. Injury. COMPARISON: None TECHNIQUE: AP and lateral views were obtained. FINDINGS: The bony structures, joint spaces, and soft tissues are normal for age. IMPRESSION: NEGATIVE EXAMINATION. R0
--- NOTE | 2018-06-21 07:51 | RAD ---
INDICATION: R0 Right shoulder injury COMPARISON: None TECHNIQUE: Frontal and Y views were obtained. FINDINGS: The bony structures, joint spaces, and soft tissues are normal for age. IMPRESSION: NEGATIVE EXAMINATION.. R0
== END 2018-06-20 20:58 | disposition home or self-care (01) ==
LOC: ED 17:26
DX: S81.011A Laceration without foreign body, right knee, initial encounter (principal); S50.811A Abrasion of right forearm, initial encounter; S80.212A Abrasion, left knee, initial encounter; S80.211A Abrasion, right knee, initial encounter; S60.411A Abrasion of left index finger, initial encounter; V27.4XXA Motorcycle driver injured in collision with fixed or stationary object in traffic accident, initial encounter; Y93.9 Activity, unspecified; Y92.9 Unspecified place or not applicable; Z88.5 Allergy status to narcotic agent; Z88.7 Allergy status to serum and vaccine; Z88.8 Allergy status to other drugs, medicaments and biological substances; Z87.891 Personal history of nicotine dependence
CPT/HCPCS: 12032; 96372; 99282; A9270-GY; J2270

== ENCOUNTER 2018-06-22 21:34 | Emergency (ER) | payer MEDICARE ==
[2018-06-22] MEDS ORDERED: NS 0.9% 1000 ML* 1,000 ML IV ONE (22:16)
[2018-06-22] MEDS ORDERED: Clindamycin 900 MG IVPREMIX(* 900 MG/50 ML SDV IV ONE (22:16)
[2018-06-22] MEDS ORDERED: HYDROmorphone INJ* 2 MG/ML CARPUJECT SYRINGE IV SLOW PU ONE (22:17)
[2018-06-22] MEDS ORDERED: Metoclopramide IV* 5 MG/ML 2 ML VIAL IV SLOW PU ONE (22:18)
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
[2018-06-22 22:36] LABS: ABS Basophils 0 10^3/ul (0-0.2); ABS Eosinophils 0 10^3/ul (0-0.6); ABS Lymphocytes 2.4 10^3/ul (1.0-4.8); ABS Monocytes 0.5 10^3/ul (0-0.8); ABS Neutrophils 5.5 10^3/ul (1.5-7.7); ABS Nucleated RBC 0 10^3/ul; Eosinophil % 0 % (0-6); Hematocrit 40 % (35-47); Hemoglobin 13.5 g/dl (12.0-16.0); Lymphocyte % 28.7 % (25-47); Mean Corpuscular HGB Conc 34 g/dl (31-36); Mean Corpuscular Hemoglobin 30 pg (27-31); Mean Corpuscular Volume 87 fL (80-97); Mean Platelet Volume 8.3 um3 (7.4-10.4); Nucleated Red Blood Cells % 0; Platelet Count 237 10^3/ul (150-450); Red Blood Count 4.56 10^6/ul (4.00-5.40); Red Cell Distribution Width 14 % (10.5-15); White Blood Count 8.5 10^3/ul (3.5-10.8)
[2018-06-22 22:43] LABS: INR 0.9 (0.77-1.02)
[2018-06-22 22:52] LABS: EGFR Non-African American 100.4 (>60)
[2018-06-22 23:15] VITALS: BP 127/82
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
[2018-06-22] MEDS ORDERED: Dexamethasone IV* 4 MG/ML 1 ML (4 MG) IV SLOW PU ONE (23:47)
[2018-06-22 23:48] LABS: Urine Appearance Cloudy; Urine Blood Negative (Negative); Urine Color Yellow; Urine Ketones Negative (Negative); Urine Protein Negative (Negative); Urine Red Blood Cell Absent (Absent); Urine Urobilinogen Negative (Negative); Urine White Blood Cell 3+(>20/hpf) (Absent)
== END 2018-06-23 00:15 | disposition home or self-care (01) ==
LOC: ED 21:34
DX: L03.115 Cellulitis of right lower limb (principal); S50.1 Contusion of forearm; V86.56XS Driver of dirt bike or motor/cross bike injured in nontraffic accident, sequela; Z88.5 Allergy status to narcotic agent; Z88.7 Allergy status to serum and vaccine; Z88.8 Allergy status to other drugs, medicaments and biological substances; Z87.891 Personal history of nicotine dependence
CPT/HCPCS: 36415; 80053; 81003; 81015; 82550; 83605; 85025; 85610; 85730; 86140; 87040; 87086; 96365; 96375; 99283; J1100; J1170; J2765

== ENCOUNTER 2019-01-05 17:41 | Emergency (ER) | payer MEDICARE ==
--- OUTSIDE RECORDS SUMMARY | 2019-01-05 17:45 | XMS REPORT | Continuity of Care Document ---
:1975 External Reference #:[id number] Author Name Radha Williamson Care Team Providers Name Role Phone Terence Lawler MD Primary Care Physician Unavailable Payers Date Identification Numbers Payment Provider Subscriber Effective: 2018 Policy Number: [id number] [employer] Rima Hart PayID: [id number] [address] [place] [address] Onset: 2017 Policy Number: [id number] [facility] [employer] [facility] Rima Hart Group Name: [facility] PayID: [id number] [address] [place] [address] Effective: 2017 Policy Number: [id number] [facility] Rima Hart Expires: 2017 Group Name: [address] [address] Onset: 2017 PayID: CLIFFORD Gonzalez [id number] Onset: 2012 Policy Number: [id number] [facility] Rima Hart Group Name: [phone] [address] [address] PayID: [id number] [place] [address] Advance Directives Description No Information Available Problems Date Description Provider Status Onset: 09/19/2014 Polyneuropathy Fawad Chew M.D. 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 ETOH Use Denies alcohol use Tobacco Use Start: Unknown End: Patient is a former Quit 2007; max 1ppd, Unknown smoker began age20 Smoking Status Reviewed: 12/20/18 Patient is a former Quit 2007; max 1ppd, smoker began age20 Exercise 09/23/2016 Exercises sporadically bowls 1-3x/week Type/Frequency Allergies, Adverse Reactions, Alerts Date Description Reaction Status Severity Comments 06/06/2014 Prednisone Hives Active 06/06/2014 Benadryl Hives Active 06/06/2014 Flu Virus Vaccine Hives Active 06/06/2014 PPD Test Hives Active 06/06/2014 Hydrocodone Hives Active Medications Medication Date Status Form Strength Qnty SIG Indications Ordering Provider Sulfasalazine 12/20/ Active Tablets 500mg 30tab take one 2018 s capsule/table Ginger, t daily by M.D. mouth for 1 week then 1 twice daily ongoing [id number] 11/16/ Active Chewtabs 1mg 90uni take one 2018 ts capsule/table Ginger, t daily M.D. sublingually Tizanidine HCL 11/15/ Active Tablets 4mg 60tab Take 1/2-1 Corey 2019 s Tablet By DAVID Sweeney Mouth Twice A Day as Directed For Chronic Pain Oxycodone HCL 10/06/ Active Tablets 5mg 90tab 1 by mouth M54.5 Corey 2018 s three times DAVID Sweeney daily as needed ( Claim # [id number]) G89.29 Xtampza ER 10/06/2018 Active C12a 9mg 60units one tab twice daily M54.5 Corey Zahra ( Claim # FUNERAL ATTENDANT [id number]) G89.29 Lidocaine 06/25/2018 Active Cream 4% 60gm apply to M79.601 Corey affected areas DAVID Sweeney 3 or 4 times daily Knee 06/25/2018 Active Misc 1unit wear on right S81.011D Corey Sleeve/Open s knee as needed. DAVID Sweeney Patella/Medium /Neoprene Onetouch Active Misc 30G Unknown Delica Lancets Fine 30G Onetouch Verio Active Strips Unknown Onetouch Verio Active Kit w/D Use as Directed Unknown Iq Blood ryder Glucose ce Monitoring System Xanax Active Tablets 0.5 1 to 2 tabs as Unknown mg needed for severe anxiety attack up to two times a day Fluoxetine HCL Active Capsules 10m 1 by mouth Unknown g every day Fluoxetine HCL Active Capsules 20m 1 by mouth Unknown g every day Trazodone HCL Active Tablets 100 1-3 tabs every Unknown mg night at bedtime Diazepam 08/23/2018 - Hx Tablets 5mg 1tabs one tablet one Corey 08/24/2018 hour prior to DAVID Sweeney mri. Meloxicam 06/25/2018 - Hx Tablets 7.5 30tab 1 -2 tablet by S81.011D Corey 08/23/2018 mg s mouth once DAVID Sweeney daily as needed Trazodone HCL 12/23/2017 - Hx Tablets 100 take 1 tablet F43.10 Cb Mccarty 08/23/2018 mg by mouth at Cassandra, bedtime M.D. Terazol 7 12/18/2017 - Hx Cream 0.4 45gm apply Ayana 08/23/2018 % intravaginally Cotton, every night at M.D. bedtime for 7 days Escitalopram 10/15/2017 - Hx Tablets 20m 30tab 1/2 tab by Cb Mccarty Oxalate 03/17/2018 g s mouth every day Cassandra, for a week and M.D. then stop Famotidine 08/21/2017 - Hx Tablets 20m 30tab 1 by mouth K21.9 Cb Mccarty 08/23/2018 g s every day as Cassandra, needed for M.D. heartburn Cymbalta 03/27/2015 - Hx Caps 60carmella 30cap 1 by mouth Erinn 09/22/2016 Part g s every day Fabian Petersen Cymagdalena 12/05/2014 - Hx Caps 20carmella 60cap 2 every day Fawad Walton 03/27/2015 Part g triston Chew M.D. Gabapentin 09/19/2014 - Hx Capsules 300 180ca 2 tabs by mouth Ammi 03/05/2016 mg ps every morning, Arabella FUNERAL ATTENDANT 1 tab every noon, 2 tabs every evening Gabapentin 06/06/2014 - Hx Capsules 100 270ca 3 PO tid Fawad Walton 09/19/2014 mg ps Fabian Chew Nortrel 0.5/35 - Hx Tablets 0.5 1 tab po daily Unknown (28) 09/07/2014 -35 mg- mcg Nucynta ER - Hx Tablets ER 50m take 1 tablet Unknown 12/04/2014 12HR g by mouth every 12 hours as directed -Max 2/Day Trazodone HCL - Hx Tablets 50m 30tab 1 tab by mouth Cb Mccarty 12/23/2017 g s every night at Cassandra, bedtime M.DRenae Xanax - Hx Tablets 0.2 60tab one by mouth up Cb Mccarty 12/23/2017 5mg s to three times Cassandra, daily as needed M.DRenae for anxiety Escitalopram - Hx Tablets 10m 30tab take 1 tablet Cb Mccarty Oxalate 10/15/2017 g s by mouth once Cassandra, daily M.DRenae Metformin HCL - Hx Tablets 500 60tab 1 by mouth Cb Mccarty 08/23/2018 mg s twice a day Fabian Trujillo Biotin - Hx Capsules 500 1 tab daily otc Unknown 08/23/2018 0mc g Effexor XR - Hx Caps ER 75m 1 by mouth Unknown 08/23/2018 24HR g every day slowly increase to 150mg Venlafaxine - Hx Caps ER 150 Silvestre, HCL ER 08/23/2018 24HR mg MD Aman Trazodone HCL - Hx Tablets 200 take 1 tablet Unknown 12/06/2018 mg at bedtime Amoxicillin/Cl - Hx Tablets 875 Take 1 Tablet Unknown avulanate 12/30/2017 -12 By Mouth Twice Potassium 5mg A Day Ondansetron - Hx Tablets 4mg Unknown 08/23/2018 Dispers Alprazolam - Hx Tablets 0.2 Take 1 Tablet Unknown 08/23/2018 5mg By Mouth Up To 3 Times A Day as Needed For Anxiety Escitalopram - Hx Tablets 10m Take 1 Tablet Unknown Oxalate 03/17/2018 g By Mouth Once Daily Nystatin - Hx Suspension 100 [place], 08/23/2018 000 Giulia Mcpherson M.D./Carmella L Loratadine - Hx Tablets 10m Take 1 Tablet Unknown 08/23/2018 g Every Day Doxycycline - Hx Capsules 100 Take One Unknown Hyclate 08/23/2018 mg Capsule Twice A Day Cefpodoxime - Hx Tablets 200 Take 1 Tablet Unknown Proxetil 08/23/2018 mg By Mouth Every 12 Hours Azithromycin - Hx Tablets 250 Unknown 12/30/2017 mg Medications Administered in Office Medication Date Status Form Strength Qnty SIG Indications Ordering Provider Dexamethasone Injection Bobo F Sodium 2016 Tariq, Phosphate, 1 MG Immunizations CPT Code Status Date Vaccine Reaction Lot # [id number] Given 08/21/2017 Pneumonia Vaccine Pt. tolerated well. No reaction [id number] noted. Vital Signs Date Vital Result Comment 12/20/2018 10:56am Height 66 inches 5'6" Weight 223.00 lb Heart Rate 81 /min BP Systolic 126 mmHg BP Diastolic 84 mmHg Pain Level 8 O2 % BldC Oximetry 97 % BMI (Body Mass Index) 36.0 kg/m2 12/07/2018 9:48am Height 66 inches 5'6" Weight 223.00 lb Heart Rate 85 /min BP Systolic Sitting 115 mmHg BP Diastolic Sitting 78 mmHg BMI (Body Mass Index) 36.0 kg/m2 11/16/2018 10:05am Height 66 inches 5'6" Weight 227.50 lb Heart Rate 96 /min BP Systolic 116 mmHg BP Diastolic 78 mmHg Pain Level 6 O2 % BldC Oximetry 98 % BMI (Body Mass Index) 36.7 kg/m2 10/06/2018 10:02am Height 66 inches 5'6" Weight 230.00 lb Heart Rate 94 /min BP Systolic 114 mmHg BP Diastolic 71 mmHg O2 % BldC Oximetry 98 % BMI (Body Mass Index) 37.1 kg/m2 09/20/2018 4:06pm Height 66 inches 5'6" Weight 229.00 lb Heart Rate 96 /min BP Systolic 116 mmHg BP Diastolic 66 mmHg O2 % BldC Oximetry 96 % BMI (Body Mass Index) 37.0 kg/m2 08/23/2018 11:45am Height 66 inches 5'6" Weight 182.00 lb Heart Rate 84 /min BP Systolic 100 mmHg BP Diastolic 70 mmHg Body Temperature 97.7 F O2 % BldC Oximetry 97 % BMI (Body Mass Index) 29.4 kg/m2 06/25/2018 9:21am Height 66 inches 5'6" Weight 213.00 lb Heart Rate 74 /min BP Systolic Sitting 127 mmHg BP Diastolic Sitting 81 mmHg O2 % BldC Oximetry 98 % BMI (Body Mass Index) 34.4 kg/m2 03/17/2018 8:33am Height 66 inches 5'6" Weight 213.00 lb Heart Rate 106 /min BP Systolic 128 mmHg BP Diastolic 79 mmHg O2 % BldC Oximetry 97 % BMI (Body Mass Index) 34.4 kg/m2 03/02/2018 3:23pm Weight 213.00 lb Heart Rate 60 /min BP Systolic Sitting 126 mmHg BP Diastolic Sitting 82 mmHg O2 % BldC Oximetry 98 % 12/31/2017 10:02am Height 66 inches 5'6" Weight 213.50 lb Heart Rate 116 /min BP Systolic 120 mmHg BP Diastolic 70 mmHg Body Temperature 98.6 F O2 % BldC Oximetry 97 % BMI (Body Mass Index) 34.5 kg/m2 08/21/2017 11:04am Height 66 inches 5'6" Weight 228.00 lb Heart Rate 87 /min BP Systolic Sitting 116 mmHg BP Diastolic Sitting 75 mmHg Body Temperature 97.5 F O2 % BldC Oximetry 98 % BMI (Body Mass Index) 36.8 kg/m2 09/23/2016 10:41am Height 66 inches 5'6" Weight 220.00 lb BP Systolic Sitting 128 mmHg BP Diastolic Sitting 72 mmHg Pain Level 6 BMI (Body Mass Index) 35.5 kg/m2 03/06/2016 9:32am Height 66 inches 5'6" Heart Rate 68 /min BP Systolic Sitting 114 mmHg BP Diastolic Sitting 70 mmHg Respiratory Rate 16 /min 03/27/2015 11:15am Height 66 inches 5'6" Heart Rate 76 /min BP Systolic Sitting 110 mmHg BP Diastolic Sitting 64 mmHg Respiratory Rate 16 /min 12/05/2014 3:20pm Height 66 inches 5'6" Weight 263.00 lb Heart Rate 72 /min BP Systolic Sitting 128 mmHg BP Diastolic Sitting 74 mmHg Respiratory Rate 16 /min BMI (Body Mass Index) 42.4 kg/m2 09/19/2014 1:37pm Height 66 inches 5'6" Weight 251.25 lb Heart Rate 80 /min BP Systolic Sitting 132 mmHg BP Diastolic Sitting 76 mmHg Respiratory Rate 16 /min BMI (Body Mass Index) 40.5 kg/m2 06/06/2014 10:01am Height 66 inches 5'6" Weight 235.00 lb Heart Rate 108 /min BP Systolic Sitting 140 mmHg BP Diastolic Sitting 84 mmHg Respiratory Rate 16 /min BMI (Body Mass Index) 37.9 kg/m2 Results Test Date Facility Test Result H/L Range Note Drug Abuse [facility] Urine Presumptive Posi Abnormal 1, 2 20 Urine [address] Amphetamine <SEE NOTE> ng/[place] [address] [phone] Urine Barbiturates Negative ng/mL 3 Urine Benzodiazepines Presumptive Posi <SEE NOTE> Abnormal 4 ng/mL Urine Cocaine Negative ng/mL 5 Urine Phencyclidine Negative ng/mL Cutoff: 25 Urine Tetrahydrocannabinol Negative ng/mL Cutoff: 50 6 Creatinine, Urine 218.5 mg/dL Specific [place] 1.021 pH 5.7 Oxidants Negative 7 Adulterants Comment Normal Codeine, Ur Not Detected ng/mL Cutoff: 25 8 Jsuyodk-9-dmli-glucuronide, Ur Not Detected ng/mL 9 Morphine, Ur Not Detected ng/mL Cutoff: 25 10 Vpauptme-0-mjdk-glucuronide, U Not Detected ng/mL 11 6-monoacetylmorphine, Ur Not Detected ng/mL Cutoff: 25 12 Hydrocodone, Ur Not Detected ng/mL Cutoff: 25 13 Norhydrocodone, Ur Not Detected ng/mL Cutoff: 25 14 Dihydrocodeine, Ur Not Detected ng/mL Cutoff: 25 15 Hydromorphone, Ur Not Detected ng/mL Cutoff: 25 16 Llmpofgxpvjnv7xjartmqmjdbiwfo Not Detected ng/mL 17 Oxycodone, Ur Present ng/mL Abnormal Cutoff: 25 18 Noroxycodone, Ur Present ng/mL Abnormal Cutoff: 25 19 Oxymorphone, Ur Not Detected ng/mL Cutoff: 25 20 Xoqyfguyldd-8-dphb-glucuronide Present ng/mL Abnormal 21 Noroxymorphone, Ur Present ng/mL Abnormal Cutoff: 25 22 Fentanyl, Ur Not Detected ng/mL Cutoff: 2 23 Norfentanyl, Ur Not Detected ng/mL Cutoff: 2 24 Meperidine, Ur Not Detected ng/mL Cutoff: 25 25 Normeperidine, Ur Not Detected ng/mL Cutoff: 25 26 Naloxone, Ur Not Detected ng/mL Cutoff: 25 27 Bkvixepf-7-eaeo-glucuronide, U Not Detected ng/mL 28 Methadone, Ur Not Detected ng/mL Cutoff: 25 29 Eddp, Ur Not Detected ng/mL Cutoff: 25 30 Propoxyphene, Ur Not Detected ng/mL Cutoff: 25 31 Norpropoxyphene, Ur Not Detected ng/mL Cutoff: 25 32 Tramadol, Ur Not Detected ng/mL Cutoff: 25 33 O-desmethyltramadol, Ur Not Detected ng/mL Cutoff: 25 34 Tapentadol, Ur Not Detected ng/mL Cutoff: 25 35 N-desmethyltapentadol, Ur Not Detected ng/mL Cutoff: 50 36 Ufggrsqzpg-xldm-yttfwwebeea, U Not Detected ng/mL 37 Buprenorphine, Ur Not Detected ng/mL Cutoff: 5 38 Norbuprenorphine, Ur Not Detected ng/mL Cutoff: 5 39 Norbuprenorphine glucuronide Not Detected ng/mL Cutoff: 20 40 Opioid Interpretation See Comment 41 Urine 10/06/2018 [facility] Urine Negative Cutoff: [address] Amphetamine by ng/[place] [address] GC/MS [phone] Urine Methamphetamine by GC/MS Negative ng/mL Cutoff: 25 Phentermine-by GC/MS Negative ng/mL Cutoff: 25 Pseudoephedrine/Ephedr GC/MS Negative ng/mL Cutoff: 25 Mda(Ecstacy metabolite) GC/MS Negative ng/mL Cutoff: 25 Mdma(Ecstacy)-by GC/MS Negative ng/mL Cutoff: 25 Urine Amphetamines Interp Negative. 42 Urine Benzodiazepines 10/06/2018 [facility] Urine Negative [address] Lorazepam ng/[place] [address] GC/MS [phone] Urine Nordiazepam GC/MS Negative ng/mL 44 Urine Oxazepam GC/MS Negative ng/mL 45 Urine Temazepam GC/MS Negative ng/mL 46 Ur Oh Ethyl Flurazepam GC/MS See Comment ng/mL 47 Ur 7 [place] Clonazepam GC/MS Negative ng/mL 48 Ur 7 [place] Flunitrazepam GC/MS Negative ng/mL Cutoff: 50 Ur Alpha Oh Alprazolam GC/MS 215 ng/mL 49 Ur Alpha Oh Triazolam GC/MS Negative ng/mL 50 Ur Benzodiazepine Interp Positive. 51 Laboratory test 08/23/2018 [facility] Vitamin B12 292 pg/mL N 180-914 52 finding [address] [place] [address] [phone] TSH (Thyroid Stim Horm) 1.26 mcIU/mL N 0.34-5.60 Hemoglobin A1c (Glyco HGB) 5.9 % High 4.0-5.6 53 Hla B27 08/23/2018 [facility] Hla B27 Positive 54 [address] [place] [address] [phone] Hla B27 Interp See CommentSee t 55 Laboratory test 08/23/2018 [facility] Rheumatoid Factor < 10 IU/ mL N <15 finding [address] [place] [address] [phone] Lyme Disease Serology Negative Negative 56 Connective Tissue 08/23/2018 [facility] Anti-Nuclear 0.3 U 57 Panel 101 [facility] [place] [address] [phone] Cyclic Citrullinated Peptide <15.6 U 58 Interpretation See Comment 59 Laboratory test 08/23/2018 [facility] C Reactive 10.56 mg/L High <8.01 finding 101 [facility] [place] [address] [phone] Erythrocyte Sed Rate 16 mm/Hr High 0-14 Comp Metabolic Panel 08/23/2018 [facility] Sodium 139 mmol/L N 135-145 [address] [place] [address] [phone] Potassium 4.0 mmol/L N 3.5-5.0 Chloride 102 mmol/L N 101-111 Co2 Carbon Dioxide 30 mmol/L N 22-32 Anion Gap 7 mmol/L N 2-11 Glucose 103 mg/dL High 70-100 Blood Urea Nitrogen 9 mg/dL N 6-24 Creatinine 0.72 mg/dL N 0.51-0.95 BUN/Creatinine Ratio 12.5 N 8-20 Calcium 8.8 mg/dL N 8.6-10.3 Total Protein 6.8 g/dL N 6.4-8.9 Albumin 4.1 g/dL N 3.2-5.2 Globulin 2.7 g/dL N 2-4 Albumin/Globulin Ratio 1.5 N 1-3 Total Bilirubin 0.40 mg/dL N 0.2-1.0 Alkaline Phosphatase 94 U/L N 34-104 Alt 14 U/L N 7-52 Ast 15 U/L N 13-39 Egfr Non- 89.3 >60 Egfr 108.0 >60 60 CBC Auto Diff 08/23/2018 [facility] White Blood 7.9 10^3/uL N 3.5-10.[address] [place] [address] [phone] Red Blood Count 4.77 10^6/uL N 4.00-5.40 Hemoglobin 14.1 g/dL N 12.0-16.0 Hematocrit 42 % N 35-47 Mean Corpuscular Volume 88 fL N 80-97 Mean Corpuscular Hemoglobin 30 pg N 27-31 Mean Corpuscular HGB Conc 34 g/dL N 31-36 Red Cell Distribution Width 13 % N 10.5-15 Platelet Count 213 10^3/uL N 150-450 Mean Platelet Volume 9.0 um3 N 7.4-10.4 Abs Neutrophils 5.1 10^3/uL N 1.5-7.7 Abs Lymphocytes 2.3 10^3/uL N 1.0-4.8 Abs Monocytes 0.4 10^3/uL N 0-0.8 Abs Eosinophils 0 10^3/uL N 0-0.6 Abs Basophils 0 10^3/uL N 0-0.2 Abs Nucleated RBC 0 10^3/uL Granulocyte % 64.8 % N 38-83 Lymphocyte % 29.6 % N 25-47 Monocyte % 5.2 % N 0-7 Eosinophil % 0.1 % N 0-6 Basophil % 0.3 % N 0-2 Nucleated Red Blood Cells % 0 Laboratory test 08/04/2018 [facility] Cytology SEE RESULT [address] [place] [address] [phone] Urine Culture And 06/22/2018 [facility] Urine Culture SEE RESULT [address] [place] [address] [phone] Laboratory test 06/22/2018 [facility] Blood Culture SEE RESULT [address] [place] [address] [phone] Urinalysis Profile 06/22/2018 [facility] Urine Color Yellow [address] [place] [address] [phone] Urine Appearance Cloudy Urine Specific [place] 1.010 N 1.010-1.030 Urine pH 6.0 N 5-9 Urine Urobilinogen Negative Negative Urine Ketones Negative Negative Urine Protein Negative Negative Urine Leukocytes 3+ Abnormal Negative Urine Blood Negative Negative Urine Nitrite Negative Negative Urine Bilirubin Negative Negative Urine Glucose Negative Negative Urine White Blood Cell 3+(>20/hpf) Abnormal Absent Urine Red Blood Cell Absent Absent Urine Bacteria Absent Absent Urine Squamous Epithelial Cell Present Abnormal Absent CBC Auto Diff 06/22/2018 [facility] White Blood 8.5 10^3/uL N 3.5-10.[address] [place] [address] [phone] Red Blood Count 4.56 10^6/uL N 4.00-5.40 Hemoglobin 13.5 g/dL N 12.0-16.0 Hematocrit 40 % N 35-47 Mean Corpuscular Volume 87 fL N 80-97 Mean Corpuscular Hemoglobin 30 pg N 27-31 Mean Corpuscular HGB Conc 34 g/dL N 31-36 Red Cell Distribution Width 14 % N 10.5-15 Platelet Count 237 10^3/uL N 150-450 Mean Platelet Volume 8.3 um3 N 7.4-10.4 Abs Neutrophils 5.5 10^3/uL N 1.5-7.7 Abs Lymphocytes 2.4 10^3/uL N 1.0-4.8 Abs Monocytes 0.5 10^3/uL N 0-0.8 Abs Eosinophils 0 10^3/uL N 0-0.6 Abs Basophils 0 10^3/uL N 0-0.2 Abs Nucleated RBC 0 10^3/uL Granulocyte % 64.7 % N 38-83 Lymphocyte % 28.7 % N 25-47 Monocyte % 6.2 % N 0-7 Eosinophil % 0 % N 0-6 Basophil % 0.4 % N 0-2 Nucleated Red Blood Cells % 0 Inr/Protime 06/22/2018 [facility] Inr 0.90 N 0.77-1.[address] [place] [address] [phone] Laboratory test 06/22/2018 [facility] Partial 28.1 seconds N 26.0-36.[address] [place] [address] PTT [phone] Lactic Acid 0.8 mmol/L N 0.5-2.0 64 Comp Metabolic Panel 06/22/2018 [facility] Sodium 137 mmol/L N 135-[address] [place] [address] [phone] Potassium 3.7 mmol/L N 3.5-5.0 Chloride 105 mmol/L N 101-111 Co2 Carbon Dioxide 26 mmol/L N 22-32 Anion Gap 6 mmol/L N 2-11 Glucose 106 mg/dL High 70-100 Blood Urea Nitrogen 8 mg/dL N 6-24 Creatinine 0.65 mg/dL N 0.51-0.95 BUN/Creatinine Ratio 12.3 N 8-20 Calcium 8.8 mg/dL N 8.6-10.3 Total Protein 6.7 g/dL N 6.4-8.9 Albumin 3.9 g/dL N 3.2-5.2 Globulin 2.8 g/dL N 2-4 Albumin/Globulin Ratio 1.4 N 1-3 Total Bilirubin 0.40 mg/dL N 0.2-1.0 Alkaline Phosphatase 94 U/L N 34-104 Alt 15 U/L N 7-52 Ast 13 U/L N 13-39 Egfr Non- 100.4 >60 Egfr 121.5 >60 65 Laboratory test 06/22/2018 [facility] Creatine 153 U/L N 10- [address] Kinase(CK) [place], [place] [id number] [phone] C Reactive Protein 64.19 mg/L High <8.01 Lipid Profile 01/18/2018 [facility] Triglycerides 143 mg/dL 66 (Trig/Chol/HDL) [address] [place] [address] [phone] Cholesterol 182 mg/dL 67 HDL Cholesterol 48.8 mg/dL 68 LDL Cholesterol 105 mg/dL 69 Laboratory test 01/18/2018 [facility] Partial 30.8 seconds N 26.0-36.3 [address] [address] PTT [phone] Inr/Protime 01/18/2018 [facility] Inr 0.90 N 0.77-1.[address] [place] [address] [phone] CBC Auto Diff 01/18/2018 [facility] White Blood 8.7 10^3/uL N 3.5-10.[address] [place] [address] [phone] Red Blood Count 4.86 10^6/uL N 4.0-5.4 Hemoglobin 14.4 g/dL N 12.0-16.0 Hematocrit 43 % N 35-47 Mean Corpuscular Volume 88 fL N 80-97 Mean Corpuscular Hemoglobin 30 pg N 27-31 Mean Corpuscular HGB Conc 34 g/dL N 31-36 Red Cell Distribution Width 15 % N 10.5-15 Platelet Count 230 10^3/uL N 150-450 Mean Platelet Volume 9.6 um3 N 7.4-10.4 Abs Neutrophils 5.4 10^3/uL N 1.5-7.7 Abs Lymphocytes 2.6 10^3/uL N 1.0-4.8 Abs Monocytes 0.5 10^3/uL N 0-0.8 Abs Eosinophils 0.2 10^3/uL N 0-0.6 Abs Basophils 0 10^3/uL N 0-0.2 Abs Nucleated RBC 0 10^3/uL Granulocyte % 62.5 % N 38-83 Lymphocyte % 29.9 % N 25-47 Monocyte % 5.3 % N 0-7 Eosinophil % 2.0 % N 0-6 Basophil % 0.3 % N 0-2 Nucleated Red Blood Cells % 0.1 Laboratory test 12/09/2017 [facility] MRSA/S. SEE RESULT 71 , [address] [place] [address] PCR [phone] Wound Culture/Sensi 12/09/2017 [facility] Wound/Misc SEE RESULT [address] Culture[place] [address] Stain [phone] Protein 09/19/2014 Total 7.1 g/dL N 6.3 Electrophoresis Protein(Pep) - 7.9 Albumin 3.3 g/dL Abnormal 3.4-4.7 Alpha-1 Globulin 0.2 g/dL N 0.1-0.3 Alpha-2 Globulin 1.3 g/dL Abnormal 0.6-1.0 Beta Globulin 1.3 g/dL Abnormal 0.7-1.2 Gamma Globulin 1.0 g/dL N 0.6-1.6 Albumin/Globulin Ratio 0.87 N Impression See Comment N 74 Laboratory test finding 09/19/2014 Homocysteine 8 mcmol/L N 75 Methylmalonic Acid 0.16 nmol/mL N <=0.40 76 Folate 4.51 ng/mL N >3.99 1 [id number] Presumptive Positive Drug confirmation to follow. Presumptive Positive means that the screening method is positive, but the test needs to be run by a confirmatory method before being finalized. REFERENCE VALUE Cutoff: 500 3 REFERENCE VALUE Cutoff: 200 4 Presumptive Positive Drug confirmation to follow. Presumptive Positive means that the screening method is positive, but the test needs to be run by a confirmatory method before being finalized. REFERENCE VALUE Cutoff: 100 5 REFERENCE VALUE Cutoff: 150 6 ADDITIONAL INFORMATION This report is intended for use in clinical monitoring or management of patients. It is not intended for use in employment-related testing. 7 REFERENCE VALUE Cutoff: 200 mg/L 8 Tylenol 3 9 Metabolite of codeine REFERENCE VALUE Cutoff: 100 10 Portia Rivera, MS Contin; Also a minor metabolite (10%) of codeine and can be seen in low concentrations (<2,000 ng/mL) with poppy seed ingestion. 11 Metabolite of morphine REFERENCE VALUE Cutoff: 100 12 Metabolite of heroin 13 Lortab, [place], Vicodin; Also a very minor metabolite of codeine and impurity (<1%) of oxycodone. 14 Metabolite of hydrocodone 15 Metabolite of hydrocodone 16 Dilaudid, Exalgo; Also a metabolite of hydrocodone and a minor (<5%) metabolite of morphine. 17 Metabolite of hydromorphone REFERENCE VALUE Cutoff: 100 18 Endocet, Percocet, Oxycontin 19 Metabolite of oxycodone 20 Numorphan, Opana; Also a metabolite of oxycodone. 21 Metabolite of oxymorphone REFERENCE VALUE Cutoff: 100 22 Metabolite of oxymorphone 23 Actiq, Duragesic, [place] 24 Metabolite of fentanyl 25 Demerol 26 Metabolite of meperidine 27 Narcan 28 Metabolite of naloxone REFERENCE VALUE Cutoff: 100 29 Dolophine 30 Metabolite of methadone 31 Darvon, Darvocet 32 Metabolite of propoxyphene 33 Tradol, Ultram, Ultracet 34 Metabolite of tramadol 35 Nucynta 36 Metabolite of tapentadol 37 Metabolite of tapentadol REFERENCE VALUE Cutoff: 100 38 Buprenex, Suboxone 39 Metabolite of buprenorphine 40 Metabolite of buprenorphine 41 Test detected the presence of oxycodone and several metabolites (noroxycodone, noroxymorphone, and wzuwptgdzvz-0-ixbd-glucuronide). Suspect use of oxycodone and/or oxymorphone within the past three days. ADDITIONAL INFORMATION This test was developed and its performance characteristics determined by [facility] in a manner consistent with CLIA requirements. This test has not been cleared or approved by the U.S. Food and Drug Administration. Test Performed by: [facility] [employer] [facility] [place] [employer] [place] [address] 42 ADDITIONAL INFORMATION This report is intended for use in clinical monitoring and management of patients. It is not intended for use in employment-related testing. This test was developed and its performance characteristics determined by [facility] in a manner consistent with CLIA requirements. This test has not been cleared or approved by the U.S. Food and Drug Administration. Test Performed by: [facility] [place] [address] [place] [id number] REFERENCE VALUE Cutoff: 100 44 REFERENCE VALUE Cutoff: 100 45 REFERENCE VALUE Cutoff: 100 46 REFERENCE VALUE Cutoff: 100 47 RESULT: Results not available due to analyte specific failure. REFERENCE VALUE Cutoff: 100 48 REFERENCE VALUE Cutoff: 100 49 REFERENCE VALUE Cutoff: 100 50 REFERENCE VALUE Cutoff: 100 51 ADDITIONAL INFORMATION This report is intended for use in clinical monitoring and management of patients. It is not intended for use in employment-related testing. This test was developed and its performance characteristics determined by [facility] in a manner consistent with CLIA requirements. This test has not been cleared or approved by the U.S. Food and Drug Administration. Test Performed by: [facility] - [facility] [address] [place] [address] 52 Normal Range 180 to 914 Indeterminate Range 145 to 180 Deficient Range <145 53 Therapeutic target for the treatment of diabetes mellitus patients is <7% HBA1C, and in selective patients <6.0%. Please refer to [place] [employer] diabetic care guidelines for further information. 54 REFERENCE VALUE Not Applicable 55 HLA-B27 antigen was detected. Approximately 8% of the normal population carries the HLA-B27 antigen. HLA-B27 is present in approximately 89% of patients with ankylosing spondylitis, 79% of patients with Lian's syndrome and 42% of patients with juvenile rheumatoid arthritis. However, lacking other data, it is not diagnostic for these disorders. This test does not differentiate B27 alleles. i.e. B*27:05, B*27:06, etc. ADDITIONAL INFORMATION Method: Flow Cytometry Performing Laboratory CLIA# [id number] Test Performed by: [facility] - [address] [address] 56 No evidence of antibodies to B. burgdorferi detected. False negative results may occur in recently infected patients (<=2 weeks) due to low or undetectable antibody levels to B. burgdorferi. If recent exposure is suspected, a second sample should be collected and tested in 2-4 weeks. Test Performed by: [facility] [address] [place] [address] 57 REFERENCE VALUE <=1.0 (Negative) 58 REFERENCE VALUE <20.0 (Negative) 59 Tests for antibodies to dsDNA and VALERIY antigens are not performed automatically unless the JAE result is > or= 3.0 U. Studies performed at [facility] indicate that positive JAE results <3.0 U are rarely accompanied by positive second order tests. Test Performed by: [facility] - [address] [address] 60 Because ethnic data is not always readily available, this report includes an eGFR for both -Americans and non- Americans. The National Kidney Disease Education Program (NKDEP) does not endorse the use of the MDRD equation for patients that are not between the ages of 18 and 70, are , have extremes of body size, muscle mass, or nutritional status, or are non- or non-. According to the National Kidney Foundation, irrespective of diagnosis, the stage of the disease is based on the level of kidney function: Stage Description GFR(mL/min/1.73 m(2)) 1 Kidney damage with normal or decreased GFR 90 2 Kidney damage with mild decrease in GFR 60-89 3 Moderate decrease in GFR 30-59 4 Severe decrease in GFR 15-29 5 Kidney failure <15 (or dialysis) 61 SEE RESULT BELOW Name: RIMA HART : [address]: Anabel Seth MD Acct: [id number] Unit: [id number] AGE: 43 Location: [facility] Re08/04/18 SEX: F Status: REG REF SPEC: [id number] TAM: 08/04/18-0485 [facility] DR: Anabel Seth MD REQ: [id number] RECD: 08/04/18 STATUS: FEMI LYON DR: Corey Sweeney FUNERAL ATTENDANT _ ORDERED: TP IMAGE ANALYS, HPV/Thin Prep COMMENTS: [id number] Negative for Intraepithelial lesion or Malignancy Fungal organisms morphologically consistent with Fina species Shift in cl suggestive of bacterial vaginosis Date Time Test Result Flag (u) Normal Range 08/04/18 1425 @ HPV RNA Negative Negative @ @ The high-risk HPV types detected by the assay include: 16, @ 18, 31, 33, 35, 39, 45, 51, 52, 56, 58, 59, 66, and 68. A. Ectocervical/Endocervical Specimen Adequacy: Satisfactory of evaluation Transformation zone component identified Patient Information: HPV: High risk HPV RNA testing regardless of pap results. Actual Specimen Date: 08/04/18 Last Menstrual Date: 07/12/18 Date of Last Specimen: 07/10/17 Signed by and Reported on: JB Varela (ASC) [phone] This Pap test was evaluated with the assistance of the [employer]ek TravelsPrep Test Imaging System. Due to cytologic findings at the screw driver operator microscope, comprehensive manual rescreening by a Fountain Roller Assembler may be required. The Pap Smear is a screening test designed to aid in the detection of premalignant and malignant conditions of the uterine cervix. It is not a diagnostic procedure and should not be used as the sole means of detecting cervical cancer. Both false- positive and false- negative reports do occur. Depending on your risk status, a Pap smear should be obtained and evaluated every 1-3 years. END OF REPORT DEPARTMENT OF PATHOLOGY, [address] [place] [address] Arthur Walters M.D. Director [facility] # [id number] 62 SEE RESULT BELOW Name: RIMA HART : [address]: Theresa Black MD Acct: [id number] Unit: [id number] AGE: 43 Location: ED Re06/22/18 SEX: F Status: DEP ER SPEC: [id number] TAM: 06/22/18 [facility] DR: Theresa Black MD REQ: [id number] RECD: 06/22/18 STATUS: KSENIA LYON DR: Corey Sweeney FUNERAL ATTENDANT _ SOURCE: URINE SPDESC: ORDERED: Urine Culture Procedure Result Reported Site Urine Culture Final 06/24/18- 08 ML No Growth (<1,000 CFU/mL) * ML - Main Lab . END OF REPORT DEPARTMENT OF PATHOLOGY, [address] [place] [address] Arthur Walters M.D. Director [facility] # [id number] 63 SEE RESULT BELOW Name: RIMA HART : [address]: Theresa Black MD Acct: [id number] Unit: [id number] AGE: 43 Location: ED Re06/22/18 SEX: F Status: DEP ER SPEC: [id number] TAM: 06/22/[address]: Theresa Black MD REQ: [id number] RECD: 06/22/18 STATUS: KSENIA LYON DR: Corey Sweeney FUNERAL ATTENDANT _ SOURCE: BLOOD,VENO SPDESC: ORDERED: Blood Cult Procedure Result Reported Site Aerobic Culture Bottle Final 06/27/18- 2233 ML No Growth Day 5 Anaerobic Culture Bottle Final 06/27/18- 2231 ML No Growth Day 5 * ML - Main Lab . END OF REPORT DEPARTMENT OF PATHOLOGY, [address] [place] [address] Arthur Walters M.D. Director [facility] # [id number] 64 [facility] Severe Sepsis and Septic Shock Management Bundle Measure requires all lactic acids initially measuring >2.0 mmol/L be repeated. 65 Because ethnic data is not always readily available, this report includes an eGFR for both -Americans and non- Americans. The National Kidney Disease Education Program (NKDEP) does not endorse the use of the MDRD equation for patients that are not between the ages of 18 and 70, are , have extremes of body size, muscle mass, or nutritional status, or are non- or non-. According to the National Kidney Foundation, irrespective of diagnosis, the stage of the disease is based on the level of kidney function: Stage Description GFR(mL/min/1.73 m(2)) 1 Kidney damage with normal or decreased GFR 90 2 Kidney damage with mild decrease in GFR 60-89 3 Moderate decrease in GFR 30-59 4 Severe decrease in GFR 15-29 5 Kidney failure <15 (or dialysis) 66 Desirable: <150 Borderline High: 150-199 High: 200-499 Very High: >500 67 Desirable: <200 Borderline High: 200-239 High: >239 68 Low: <40 Desirable: 40-60 High: >60 69 Desirable: <100 Near Optimal: 100-129 Borderline High: 130-159 High: 160-189 Very High: >189 70 FASTING 71 [id number] 72 SEE RESULT BELOW Name: RIMA HART : [address]: Genevieve Ramos MD Acct: [id number] Unit: [id number] AGE: 42 Location: [facility] Re12/09/17 SEX: F Status: DEP ER SPEC: [id number] TAM: 12/09/17-1118 [facility] DR: Genevieve Ramos MD REQ: [id number] RECD: 12/09/17 STATUS: KSENIA LYON DR: Cb Trujillo III, MD _ SOURCE: WOUND SPDESC:RT THUMB ORDERED: MRSA/SA SSTI, Culture Stain COMMENTS: [id number] Verbal to [id number] by [id number] at 2020 on 12/09/17. Results read back accurately. Procedure Result Reported Site MRSA/S. aureus SSTI PCR Final 12/09/17- 2005 ML Organism 1 MRSA NEGATIVE Organism 2 S.AUREUS POSITIVE Wound/Misc Gram Stain Final 12/10/17- 18 ML 1+ Neutrophils 1+ Epithelial Cells 2+ Gram Positive Cocci in Clusters, resembling Staph Wound/Misc Culture Final 12/11/17- 1026 ML Organism 1 STAPHYLOCOCCUS AUREUS Quantity 3+ 1. STAPHYLOCOCCUS AUREUS M.I.C. RX --------- ------ Penicillin >=0.5 R Clindamycin R This isolate is presumed to be resistant based on detection of inducible Clindamycin resistance. Clindamycin may still be effective in some patients. Erythromycin >=8 R Gentamicin <=0.5 S Linezolid 2 S Nitrofurantoin 32 S CONTINUED ON NEXT PAGE * ML=Testing performed at Main Lab DEPARTMENT OF PATHOLOGY, [address] [place] [address] Arthur Walters M.D. Director [facility] # [id number] Patient: RIMA HART [id number] (Continued) Specimen: [id number] Collected: 12/09/17 Received: 12/09/17-1632 (Continued) Procedure Result Reported Site Wound/Misc Culture Final (continued) 12/11/17- 1026 1. STAPHYLOCOCCUS AUREUS (continued) M.I.C. RX --------- ------ Oxacillin 0.5 S * Quinupristin/Dalfopristin <=0.25 S Rifampin <=0.5 S Tetracycline <=1 S Doxycycline - Deduced S * Minocycline - Deduced S Trimethoprim/Sulfamethoxazole <=10 S Vancomycin 1 S Imipenem-Deduced S * Ampicillin/Sulbactam-Deduced S Cefazolin-Deduced S * These antibiotics are not available in the [facility] Formulary Contact the Microbiology Department for any additional antibiotic reporting. * ML - MAIN LAB ([facility]) . END OF REPORT * ML=Testing performed at Main Lab DEPARTMENT OF PATHOLOGY, [address] [place] [address] Arthur Walters M.D. Director [facility] # [id number] 73 SEE RESULT BELOW Name: RIMA HART : [address]: Genevieve Ramos MD Acct: [id number] Unit: [id number] AGE: 42 Location: [facility] Re12/09/17 SEX: F Status: DEP ER SPEC: [id number] TAM: 12/09/17-1118 [facility] DR: Genevieve Ramos MD REQ: [id number] RECD: 12/09/17 STATUS: RES [facility] DR: Cb Trujillo III, MD _ SOURCE: WOUND SPDESC:RT THUMB ORDERED: Culture Stain COMMENTS: [id number] Procedure Result Reported Site Wound/Misc Gram Stain Preliminary 12/09/171853 ML 1+ Neutrophils 1+ Epithelial Cells 2+ Gram Positive Cocci in Clusters, resembling Staph Wound/Misc Culture PENDING * ML - MAIN LAB ([facility]) . END OF REPORT * ML=Testing performed at Main Lab DEPARTMENT OF PATHOLOGY, [address] [place] [address] Arthur Walters M.D. Director [facility] # [id number] 74 RESULT: No apparent monoclonal protein on serum electrophoresis. Test Performed by: [place] [address] Veterinary Physiologist: Marbin Barber M.D. 75 REFERENCE VALUE <=13 (Fasting) Test Performed by: [place] [address] Veterinary Physiologist: Marbin Barber M.D. 76 Test Performed by: [place] [address] Veterinary Physiologist: Marbin Barber M.D. Procedures Date Code Description Status 09/23/2016 93427 Inject Tendon Sheath Or Ligament Aponeurosis Eg Completed Plantar Fascia 09/23/2016 221108739 Diabetic Retinal Eye Exam Completed 05/05/2014 42645 Nerve Conduction 03-04 Studies Completed 05/05/2014 58870 Needle Electromyography Complete, Five Or More Muscles Completed Studied Encounters Type Date Location Provider Dx Diagnosis Office Visit 12/07/2018 [facility] Corey Sweeney NP M54.5 Low back pain 9:40a - [place] M54.5 Low back pain Office Visit 11/16/2018 Rheumatology Rajesh R70.0 Elevated 10:00a [facility] Miles M.D. erythrocyte sedimentation rate M46.90 Unspecified inflammatory spondylopathy, site unspecified R20.8 Other disturbances of skin sensation R06.83 Snoring G89.29 Other chronic pain M54.5 Low back pain Office Visit 10/06/2018 10:00a [facility] Corey Sweeney NP M54.5 Low back pain [facility] Office Visit 09/20/2018 4:20p [facility] Corey Sweeney NP R51 Headache [facility] R41.3 Other amnesia H53.8 Other visual disturbances Office Visit 08/23/2018 11:40a [facility] Internal Corey Zahra, M25.50 Pain in Medicine - FUNERAL ATTENDANT unspecified joint [place] R41.3 Other amnesia R51 Headache H53.8 Other visual disturbances R26.89 Other abnormalities of gait and mobility R73.01 Impaired fasting glucose Office Visit 06/25/2018 9:20a [facility] Internal Corey Zhara, S81.011D Laceration Medicine - FUNERAL ATTENDANT without foreign [place] body, right knee, subs encntr M79.642 Pain in left hand M79.601 Pain in right arm Office Visit 03/17/2018 8:40a [facility] Internal Corey Zahra, M54.15 Radiculopathy, Medicine - FUNERAL ATTENDANT thoracolumbar region [place] M54.15 Radiculopathy, thoracolumbar region Office Visit 08/21/2017 11:00a [facility] Internal Cb E. E11.9 Type 2 diabetes Padmini Trujillo M.D. mellitus without [place] complications F41.9 Anxiety disorder, unspecified G60.3 Idiopathic progressive neuropathy M54.5 Low back pain K21.9 Gastro-esophageal reflux disease without esophagitis K76.9 Liver disease, unspecified Z23 Encounter for immunization Office Visit 02/11/2017 11:05a [facility] Nilesh J18.9 Pneumonia, Assoc,pc MD [place] unspecified Hospitalists organism E11.9 Type 2 diabetes mellitus without complications F41.9 Anxiety disorder, unspecified Office Visit 02/10/2017 11:04a [facility] Nilesh Rowley18.9 Pneumonia, Assoc,pc [place] unspecified Hospitalists organism A41.9 Sepsis, unspecified organism E11.9 Type 2 diabetes mellitus without complications F41.9 Anxiety disorder, unspecified Office Visit 02/09/2017 11:04a [facility] Reji Guzman J18.9 Pneumonia , Assoc,georgi Peralta unspecified Hospitalists organism A41.9 Sepsis, unspecified organism E11.9 Type 2 diabetes mellitus without complications F41.9 Anxiety disorder, unspecified Office Visit 09/23/2016 10:00a Orthopedic Bobo Ardon 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 Idiopathic Progress Office 09/19/2014 [place] [facility] Fawad Walton 356.4 Polyneuropathy Visit 1:30p [facility] Of [facility] Chew M.D. Idiopathic Progress Office 06/06/2014 [place] Nneka Walton 356.4 Polyneuropathy Visit 10:00a Services Of [facility] Chew M.D. 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 at [facility]02/15/2019 9:30 am - Hemalatha Alvarez MD at [facility]03/07/2019 9:00 am - Corey Sweeney NP at [facility] Internal Medicine - Xcmffgxoo59/25/2019 - Rajesh Miles M.D.M46.90 Unspecified inflammatory spondylopathy, site unspecifiedNew Therapy:Physical XrszzylV93.0 Elevated erythrocyte sedimentation rateZ79.899 Other alf (current) drug efvskocZ49.5 Low back painFollow up:Follow up in 4 to 5 weeks or sooner if needed
--- OUTSIDE RECORDS SUMMARY | 2019-01-05 17:46 | XMS REPORT | Continuity of Care Document ---
:1975 External Reference #:[id number] Author Name Kasandra Cantu Care Team Providers Name Role Phone Terence Lawler MD Primary Care Physician Unavailable Payers Date Identification Numbers Payment Provider Subscriber Effective: 2018 Policy Number: [id number] [employer] Rima Hart PayID: [id number] [address] [place] [address] Onset: 2017 Policy Number: [id number] [facility] [employer] [facility] Rima Hart Group Name: C/O [facility] PayID: [place] [address] Effective: 2017 Policy Number: [id number] [facility] Rima Hart Expires: 2017 Group Name: [address] [address] Onset: 2017 PayID: [id number] [address] Advance Directives Description No Information Available Problems Date Description Provider Status Onset: 09/19/2014 Polyneuropathy Fawad Chew M.D. 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 ETOH Use Denies alcohol use Tobacco Use Start: Unknown End: Patient is a former Quit 2007; max 1ppd, Unknown smoker began age20 Smoking Status Reviewed: 12/07/18 Patient is a former Quit 2007; max 1ppd, smoker began age20 Exercise 09/23/2016 Exercises sporadically bowls 1-3x/week Type/Frequency Allergies, Adverse Reactions, Alerts Date Description Reaction Status Severity Comments 06/06/2014 Prednisone Hives Active 06/06/2014 Benadryl Hives Active 06/06/2014 Flu Virus Vaccine Hives Active 06/06/2014 PPD Test Hives Active 06/06/2014 Hydrocodone Hives Active Medications Medication Date Status Form Strength Qnty SIG Indications Ordering Provider [id number] 11/16/ Active Chewtabs 1mg 90unit take one Rajesh 2019 s capsule/tablet Ginger, daily M.D. sublingually Tizanidine 11/15/ Active Tablets 4mg 60tabs Take 1/2-1 Corey HCL 2019 Tablet By DAVID Sweeney Mouth Twice A Day as Directed For Chronic Pain Oxycodone 10/06/ Active Tablets 5mg 90tabs 1 by mouth M54.5 Corey HCL 2017 three times DAVID Sweeney daily as needed ( Claim # [id number]) G89.29 Xtampza ER 10/06/2018 Active C12a 9mg 60units one tab twice daily M54.5 Corey Zahra ( Claim # NATIONAL ACCOUNT MANAGER [id number]) G89.29 Lidocaine 06/25/2018 Active Cream 4% 60gm [...] S81.011D Corey 08/23/2018 mg s mouth once Zahra NATIONAL ACCOUNT MANAGER daily as needed Trazodone HCL 12/23/2017 - [...] 1 by mouth Erinn 09/22/2016 Part g triston every day Fabian Petersen Cymbalta 12/05/2014 - Hx Caps 20carmella 60cap 2 every day Fawad Walton 03/27/2015 Katie Chew M.D. Gabapentin 09/19/2014 - Hx Capsules 300 180ca 2 tabs by mouth Mami 03/05/2016 mg ps every morning, Gnadt, NATIONAL ACCOUNT MANAGER 1 tab every noon, 2 tabs every [...] 50m 30tab 1 tab by mouth Cb Mckeon. 12/23/2017 g s every night at Cassandra, bedtime M.D. Xanax - Hx Tablets 0.2 60tab one by mouth up Cb Mike. 12/23/2017 5mg s to three times Cassandra, daily as needed M.D. for anxiety Escitalopram - Hx Tablets 10m 30tab take 1 tablet Cb Mccarty Oxalate 10/15/2017 g s by mouth once Cassandra, daily M.D. Metformin HCL - Hx Tablets 500 60tab 1 by mouth Cb Mckeon. 08/23/2018 mg s twice a day Fabian [...] Once Daily Nystatin - Hx Suspension 100 [facility]2018 000 Giulia Mcpherson M.D. t/M L Loratadine - Hx Tablets 10m Take [...] Code Status Date Vaccine Reaction Lot # [id number] Given 08/21/2017 Pneumonia Vaccine Pt. tolerated well. No reaction [id number] noted. Vital Signs Date Vital Result Comment 12/07/2018 9:48am Height 66 inches 5'6" Weight [...] Test Result H/L Range Note Drug Abuse [facility] Urine Presumptive Posi Abnormal 1, 2 20 [address] Amphetamine <SEE NOTE> ng/[place] [address] [phone] Urine Barbiturates Negative ng/mL 3 Urine Benzodiazepines Presumptive Posi <SEE NOTE> Abnormal 4 ng/mL Urine Cocaine Negative ng/mL 5 Urine Phencyclidine Negative ng/mL Cutoff: 25 Urine Tetrahydrocannabinol Negative ng/mL Cutoff: 50 6 Creatinine, Urine 218.5 mg/dL Specific [place] 1.021 pH 5.7 Oxidants Negative 7 Adulterants Comment Normal Codeine, Ur Not Detected ng/mL Cutoff: 25 8 Ghilkhx-4-lakz-glucuronide, Ur Not Detected ng/mL 9 Morphine, Ur Not Detected ng/mL Cutoff: 25 10 Bafxxift-4-msct-glucuronide, U Not Detected ng/mL 11 6-monoacetylmorphine, Ur Not Detected ng/mL Cutoff: 25 12 Hydrocodone, Ur Not Detected ng/mL Cutoff: 25 13 Norhydrocodone, Ur Not Detected ng/mL Cutoff: 25 14 Dihydrocodeine, Ur Not Detected ng/mL Cutoff: 25 15 Hydromorphone, Ur Not Detected ng/mL Cutoff: 25 16 Dmmsobnbzvwnf7mndrslykewhsyfy Not Detected ng/mL 17 Oxycodone, Ur Present ng/mL Abnormal Cutoff: 25 18 Noroxycodone, Ur Present ng/mL Abnormal Cutoff: 25 19 Oxymorphone, Ur Not Detected ng/mL Cutoff: 25 20 Athnpbhhtiy-3-nkkz-glucuronide Present ng/mL Abnormal 21 Noroxymorphone, Ur Present ng/mL Abnormal Cutoff: 25 22 Fentanyl, Ur Not Detected ng/mL Cutoff: 2 23 Norfentanyl, Ur Not Detected ng/mL Cutoff: 2 24 Meperidine, Ur Not Detected ng/mL Cutoff: 25 25 Normeperidine, Ur Not Detected ng/mL Cutoff: 25 26 Naloxone, Ur Not Detected ng/mL Cutoff: 25 27 Avniiwkw-6-xvgf-glucuronide, U Not Detected ng/mL 28 Methadone, Ur [...] Ur Not Detected ng/mL Cutoff: 50 36 Cqvpgndtrn-qyiq-qdawhuwtfyx, U Not Detected ng/mL 37 Buprenorphine, Ur Not Detected ng/mL Cutoff: 5 38 Norbuprenorphine, Ur Not Detected ng/mL Cutoff: 5 39 Norbuprenorphine glucuronide Not Detected ng/mL Cutoff: 20 40 Opioid Interpretation See Comment 41 Urine 10/06/2018 [facility] Urine Negative Cutoff: [address] Amphetamine by ng/[place] [address] GC/MS [phone] Urine Methamphetamine by GC/MS Negative ng/mL Cutoff: 25 Phentermine-by GC/MS Negative ng/mL Cutoff: 25 Pseudoephedrine/Ephedr GC/MS Negative ng/mL Cutoff: 25 Mda(Ecstacy metabolite) GC/MS Negative ng/mL Cutoff: 25 Mdma(Ecstacy)-by GC/MS Negative ng/mL Cutoff: 25 Urine Amphetamines Interp Negative. 42 Urine Benzodiazepines 10/06/2018 [facility] Urine Negative [address] Lorazepam ng/[place] [address] GC/MS [phone] Urine Nordiazepam GC/MS Negative ng/mL 44 Urine [...] Benzodiazepine Interp Positive. 51 Laboratory test 08/23/2018 [facility] Vitamin B12 292 pg/mL N 180-914 [address] [place] [address] [phone] TSH (Thyroid Stim Horm) 1.26 mcIU/mL N 0.34-5.60 Hemoglobin A1c (Glyco HGB) 5.9 % High 4.0-5.6 53 Hla B27 08/23/2018 [facility] Hla B27 Positive [address] [place] [address] [phone] Hla B27 Interp See CommentSee t 55 Laboratory test 08/23/2018 [facility] Rheumatoid Factor < 10 IU/ mL N <[address] [place] [address] [phone] Lyme Disease Serology Negative Negative 56 Connective Tissue 08/23/2018 [facility] Anti-Nuclear 0.3 U [address] [place] [address] [phone] Cyclic Citrullinated Peptide <15.6 U 58 Interpretation See Comment 59 Laboratory test 08/23/2018 [facility] C Reactive 10.56 mg/L High <8.[address] [place] [address] [phone] Erythrocyte Sed Rate 16 mm/Hr High 0-14 Comp Metabolic Panel 08/23/2018 [facility] Sodium 139 mmol/L N 135-[address] [place] [address] [phone] Potassium 4.0 mmol/L N 3.5-5.0 Chloride 102 [...] 108.0 >60 60 CBC Auto Diff 08/23/2018 [facility] White Blood 7.9 10^3/uL N 3.5-10.[address] [place] [address] [phone] Red Blood Count 4.77 10^6/uL N 4.00-5.40 [...] Blood Cells % 0 Laboratory test 08/04/2018 [facility] Cytology SEE RESULT [address] [place] [address] [phone] Urine Culture And 06/22/2018 [facility] Urine Culture SEE RESULT [address] [place] [address] [phone] Laboratory test 06/22/2018 [facility] Blood Culture SEE RESULT [address] [place] [address] [phone] Urinalysis Profile 06/22/2018 [facility] Urine Color Yellow [address] [place] [address] [phone] Urine Appearance Cloudy Urine Specific [place] 1.010 N 1.010-1.030 Urine pH 6.0 N [...] Urine Squamous Epithelial Cell Present Abnormal Absent Laboratory test 06/22/2018 [facility] Creatine 153 U/L N 10- [address] Kinase(CK) [place] [address] [phone] C Reactive Protein 64.19 mg/L High <8.01 Comp Metabolic Panel 06/22/2018 [facility] Sodium 137 mmol/L N 135-[address] [place] [address] [phone] Potassium 3.7 mmol/L N 3.5-5.0 Chloride 105 [...] Egfr Non- 100.4 >60 Egfr 121.5 >60 64 Laboratory test 06/22/2018 [facility] Partial 28.1 seconds N 26.0-36.3 [place] [address] PTT [phone] Lactic Acid 0.8 mmol/L N 0.5-2.0 65 Inr/Protime 06/22/2018 [facility] Inr 0.90 N 0.77-1.[address] [place] [address] [phone] CBC Auto Diff 06/22/2018 [facility] White Blood 8.5 10^3/uL N 3.5-10.8 [place] [address] [phone] Red Blood Count 4.56 10^6/uL N 4.00-5.40 [...] 0-2 Nucleated Red Blood Cells % 0 CBC Auto Diff 01/18/2018 [facility] White Blood 8.7 10^3/uL N 3.5-10.[address] [place] [address] [phone] Red Blood Count 4.86 10^6/uL N 4.0-5.4 [...] 0-2 Nucleated Red Blood Cells % 0.1 Inr/Protime 01/18/2018 [facility] Inr 0.90 N 0.77-1.[address] [place] [address] [phone] Laboratory test 01/18/2018 [facility] Partial Thrombo 30.8 N 26.0-36.3 [address] Time PTT seconds [place], [place] [address] [phone] Lipid Profile 01/18/2018 [facility] Triglycerides 143 mg/dL 67 (Trig/Chol/HDL) [address] [place], [place] [address] [phone] Cholesterol 182 mg/dL 68 HDL Cholesterol 48.8 mg/dL 69 LDL Cholesterol 105 mg/dL 70 Wound Culture/Sensi 12/09/2017 [facility] Wound/Misc SEE RESULT 71, [address] [place] [address] Stain [phone] Laboratory test 12/09/2017 [facility] MRSA/S. aureus SEE RESULT [address] [place] [address] [phone] Protein 09/19/2014 Total 7.1 g/dL N 6.3 [...] 76 Folate 4.51 ng/mL N >3.99 1 [id number] 2 Presumptive Positive Drug confirmation to follow. [...] REFERENCE VALUE Cutoff: 100 10 Portia Rivera, Contin; Also a minor metabolite (10%) of codeine and can be seen in low concentrations (<2,000 ng/mL) with poppy seed ingestion. 11 Metabolite of morphine REFERENCE VALUE Cutoff: 100 12 Metabolite of heroin 13 Lortab, [place], Vicodin; Also a very minor metabolite of [...] oxycodone and several metabolites (noroxycodone, noroxymorphone, and bvckxzbjyqm-2-nrbu-glucuronide). Suspect use of oxycodone and/or oxymorphone within the past three days. ADDITIONAL INFORMATION This test was developed and its performance characteristics determined by [facility] in a manner consistent with CLIA requirements. This test has not been cleared or approved by the U.S. Food and Drug Administration. Test Performed by: [facility] [employer] [facility] [address] [place] [address] 42 ADDITIONAL INFORMATION This report is intended for use in clinical monitoring and management of patients. It is not intended for use in employment-related testing. This test was developed and its performance characteristics determined by [facility] in a manner consistent with CLIA requirements. This test has not been cleared or approved by the U.S. Food and Drug Administration. Test Performed by: [facility] [employer] [facility] [address] [place] [id number] 43 REFERENCE VALUE Cutoff: 100 44 REFERENCE [...] developed and its performance characteristics determined by [facility] in a manner consistent with CLIA requirements. This test has not been cleared or approved by the U.S. Food and Drug Administration. Test Performed by: [facility] [address] [place] [address] 52 Normal Range 180 to 914 Indeterminate Range 145 to 180 Deficient Range <145 53 Therapeutic target for the treatment of diabetes mellitus patients is <7% HBA1C, and in selective patients <6.0%. Please refer to [place] [employer] diabetic care guidelines for further [...] INFORMATION Method: Flow Cytometry Performing Laboratory CLIA# [id number] Test Performed by: [facility] - [address] [address] 56 No evidence of antibodies to B. burgdorferi detected. False negative results may occur in recently infected patients (<=2 weeks) due to low or undetectable antibody levels to B. burgdorferi. If recent exposure is suspected, a second sample should be collected and tested in 2-4 weeks. Test Performed by: [facility] [employer] [facility] [address] [place] [address] 57 REFERENCE VALUE <=1.0 (Negative) 58 REFERENCE VALUE <20.0 (Negative) 59 Tests for antibodies to dsDNA and VALERIY antigens are not performed automatically unless the JAE result is > or= 3.0 U. Studies performed at [facility] indicate that positive JAE results <3.0 U are rarely accompanied by positive second order tests. Test Performed by: [facility] - [address] [address] 60 Because ethnic data is not always [...] (or dialysis) 61 SEE RESULT BELOW Name: HAILEYRIMA Diego : [address]: Anabel Seth MD Acct: [id number] Unit: [id number] AGE: 43 Location: [facility] Re08/04/18 SEX: F Status: REG REF SPEC: [id number] TAM: 08/04/[address] [facility] [address]: Anabel Seth MD REQ: [id number] RECD: 08/04/18 STATUS: FEMI LYON DR: Corey Sweeney NATIONAL ACCOUNT MANAGER _ ORDERED: TP IMAGE ANALYS, HPV/Thin Prep COMMENTS: [id number] Negative for Intraepithelial lesion or Malignancy Fungal organisms morphologically consistent with Fina species Shift in cl suggestive of bacterial vaginosis Date Time Test Result Flag (u) Normal Range 08/04/18 5458 @ HPV RNA Negative Negative @ @ [...] was evaluated with the assistance of the Cross Pixel Mediap Test Imaging System. Due to cytologic findings at the video production assistant microscope, comprehensive manual rescreening by a Pre Billing Specialist may be required. The Pap Smear is [...] years. END OF REPORT DEPARTMENT OF PATHOLOGY, [address] [place] [address] Arthur Walters M.D. Director [facility] # [id number] 62 SEE RESULT BELOW Name: RIMA HART : [address]: Theresa Black MD Acct: [id number] Unit: [id number] AGE: 43 Location: ED Re06/22/18 SEX: F Status: DEP ER SPEC: [id number] TAM: 06/22/[address] [facility] [address]: Theresa Black MD REQ: [id number] RECD: 06/22/18 STATUS: KSENIA LYON DR: Corey Sweeney NATIONAL ACCOUNT MANAGER _ SOURCE: URINE SPDESC: ORDERED: Urine Culture Procedure Result Reported Site Urine Culture Final 06/24/18- 0854 ML No Growth (<1,000 CFU/mL) * ML - Main Lab . END OF REPORT DEPARTMENT OF PATHOLOGY, [address] [place] [address] Arthur Walters M.D. Director [facility] # [id number] 63 SEE RESULT BELOW Name: RIMA HART : [address]: Theresa Black MD Acct: [id number] Unit: [id number] AGE: 43 Location: ED Re06/22/18 SEX: F Status: DEP ER SPEC: [id number] TAM: 06/22/[address] [facility] [address]: Theresa Black MD REQ: [id number] RECD: 06/22/18 STATUS: KSENIA LYON DR: Corey Sweeney NATIONAL ACCOUNT MANAGER _ SOURCE: BLOOD,VENO SPDESC: ORDERED: Blood Cult Procedure Result Reported Site Aerobic Culture Bottle Final 06/27/18- 2233 ML No Growth Day 5 Anaerobic Culture Bottle Final 06/27/18- 2231 ML No Growth Day 5 * ML - Main Lab . END OF REPORT DEPARTMENT OF PATHOLOGY, [address] [place] [address] Arthur Walters M.D. Director [facility] # [id number] 64 Because ethnic data is not always readily [...] 15-29 5 Kidney failure <15 (or dialysis) 65 [facility] Severe Sepsis and Septic Shock Management Bundle Measure requires all lactic acids initially measuring >2.0 mmol/L be repeated. 66 FASTING 67 Desirable: <150 Borderline High: 150-199 High: 200-499 Very High: >500 68 Desirable: <200 Borderline High: 200-239 High: >239 69 Low: <40 Desirable: 40-60 High: >60 70 Desirable: <100 Near Optimal: 100-129 Borderline High: 130-159 High: 160-189 Very High: >189 71 [id number] 72 SEE RESULT BELOW Name: RIMA HART : [address]: Genevieve Ramos MD Acct: [id number] Unit: [id number] AGE: 42 Location: [facility] Re12/09/17 SEX: F Status: DEP ER SPEC: [id number] TAM: 12/09/17-[address] [facility] [address]: Genevieve Ramos MD REQ: [id number] RECD: 12/09/17-1632 STATUS: SHITAL LYON DR: Cb Trujillo III, MD _ SOURCE: WOUND SPDESC:RT THUMB ORDERED: Culture Stain COMMENTS: [id number] Procedure Result Reported Site Wound/Misc Gram Stain Preliminary 12/09/17- 1853 ML 1+ Neutrophils 1+ Epithelial Cells 2+ Gram Positive Cocci in Clusters, resembling Staph Wound/Misc Culture PENDING * ML - MAIN LAB (PSC1) . END OF REPORT * ML=Testing performed at Main Lab DEPARTMENT OF PATHOLOGY, [address] [place] [address] Arthur Walters M.D. Director [facility] # [id number] 73 SEE RESULT BELOW Name: RIMA HART : [address]: Genevieve Ramos MD Acct: [id number] Unit: [id number] AGE: 42 Location: [facility] Re12/09/17 SEX: F Status: DEP ER SPEC: [id number] TAM: 12/09/17-[address] [facility] [address]: Genevieve Ramos MD REQ: [id number] RECD: 12/09/17 STATUS: KSENIA LYON DR: Cb Trujillo III, MD _ SOURCE: WOUND SPDESC:RT THUMB ORDERED: MRSA/SA SSTI, Culture Stain COMMENTS: [id number] Verbal to [id number] by [id number] at 2020 on 12/09/17. Results read back accurately. Procedure Result Reported Site MRSA/S. aureus SSTI PCR Final 12/09/17- 2005 ML Organism 1 MRSA NEGATIVE Organism 2 S.AUREUS POSITIVE Wound/Misc Gram Stain Final 12/10/17- 0718 ML 1+ Neutrophils 1+ Epithelial Cells 2+ [...] performed at Main Lab DEPARTMENT OF PATHOLOGY, [address] [place] [address] Arthur Walters M.D. Director [facility] # [id number] Patient: RIMA HART [id number] (Continued) Specimen: [id number] Collected: 12/09/17-1117 Received: 12/09/17-1632 (Continued) Procedure Result Reported Site Wound/Misc Culture Final (continued) 12/11/17- 1025 1. STAPHYLOCOCCUS AUREUS (continued) M.I.C. RX --------- ------ Oxacillin 0.5 S * Quinupristin/Dalfopristin <=0.25 S Rifampin <=0.5 S Tetracycline <=1 S Doxycycline - Deduced S * Minocycline - Deduced S Trimethoprim/Sulfamethoxazole <=10 S Vancomycin 1 S Imipenem-Deduced S * Ampicillin/Sulbactam-Deduced S Cefazolin-Deduced S * These antibiotics are not available in the [facility] Formulary Contact the Microbiology Department for any additional antibiotic reporting. * ML - MAIN LAB ([facility]) . END OF REPORT * ML=Testing performed at Main Lab DEPARTMENT OF PATHOLOGY, [address] [place] [address] Arthur Walters M.D. Director [facility] # [id number] 74 RESULT: No apparent monoclonal protein on serum electrophoresis. Test Performed by: [address] [address] Kitchen And Counter Worker: Marbin Barber M.D. 75 REFERENCE VALUE <=13 (Fasting) Test Performed by: [address] [address] Kitchen And Counter Worker: Marbin Barber M.D. 76 Test Performed by: [address] [address] Kitchen And Counter Worker: Marbin Barber M.D. Procedures Date Code Description Status 09/23/2016 27978 Inject Tendon Sheath Or Ligament Aponeurosis Eg Completed Plantar Fascia 09/23/2016 161815751 Diabetic Retinal Eye Exam Completed 05/05/2014 76887 Nerve Conduction 03-04 Studies Completed 05/05/2014 63290 Needle Electromyography Complete, Five Or More Muscles Completed Studied Encounters Type Date Location Provider Dx Diagnosis Office Visit 11/16/2018 Rheumatology Rajesh Miles, R70.0 Elevated erythrocyte 10:00a [facility] Peralta sedimentation rate M46.90 Unspecified inflammatory spondylopathy, site unspecified R20.8 Other disturbances of skin sensation R06.83 Snoring G89.29 Other chronic pain M54.5 Low back pain Office Visit 10/06/2018 10:00a [facility] Internal Corey Sweeney NATIONAL ACCOUNT MANAGER M54.5 Low back pain Medicine - [place] Office Visit 09/20/2018 4:20p [facility] Internal Corey Sweeney NP R51 Headache Medicine - [place] R41.3 Other amnesia H53.8 Other visual disturbances Office Visit 08/23/2018 11:40a [facility] Internal Corey Sweeney, M25.50 Pain in Medicine - NATIONAL ACCOUNT MANAGER unspecified joint [place] R41.3 Other amnesia R51 Headache H53.8 Other visual disturbances R26.89 Other abnormalities of gait and mobility R73.01 Impaired fasting glucose Office Visit 06/25/2018 9:20a [facility] Internal Corey Sweeney, S81.011D Laceration Medicine - NATIONAL ACCOUNT MANAGER without foreign [place] body, right knee, subs encntr M79.642 Pain in left hand M79.601 Pain in right arm Office Visit 03/17/2018 8:40a [facility] Internal Corey Sweeney, M54.15 Radiculopathy, Medicine - NATIONAL ACCOUNT MANAGER thoracolumbar region [place] M54.15 Radiculopathy, thoracolumbar region Office Visit 08/21/2017 11:00a [facility] Internal Cb Mccarty E11.9 Type 2 diabetes Medicine - Cass[place], M.D. mellitus without [place] complications F41.9 Anxiety disorder, unspecified G60.3 Idiopathic progressive neuropathy M54.5 Low back pain K21.9 Gastro-esophageal reflux disease without esophagitis K76.9 Liver disease, unspecified Z23 Encounter for immunization Office Visit 02/11/2017 11:05a [facility] Nilesh J18.9 Pneumonia, Assoc,pc MD [place] unspecified Hospitalists organism E11.9 Type 2 diabetes mellitus without complications F41.9 Anxiety disorder, unspecified Office Visit 02/10/2017 11:04a [facility] Nilesh J18.9 Pneumonia, Assoc,pc MD [place] unspecified Hospitalists organism A41.9 Sepsis, unspecified organism E11.9 Type 2 diabetes mellitus without complications F41.9 Anxiety disorder, unspecified Office Visit 02/09/2017 11:04a [facility] Reji Thomas J18.9 Pneumonia , Assoc,pc Fabian unspecified Hospitalists organism A41.9 Sepsis, unspecified organism E11.9 Type 2 diabetes mellitus without complications F41.9 Anxiety disorder, unspecified Office Visit 09/23/2016 10:00a Orthopedic Bobo F M75.42 Impingement Services Of MD Tariq syndrome of left C.M.A. shoulder S46.102A Unsp injury of musc/fasc/tend long hd bicep, left arm, init M75.22 Bicipital tendinitis, left shoulder Office 03/06/2016 Neurohospitalist Fawad Walton G60.3 Idiopathic Visit 9:30a Cyndi Chew M.D. progressive neuropathy Office 03/27/2015 [facility] Mami Bell, 356.4 Polyneuropathy Visit 11:15a [facility] NATIONAL ACCOUNT MANAGER Idiopathic Progress Office 12/05/2014 [facility] Fawad Walton 356.4 Polyneuropathy Visit 3:00p Services Of Ad[facility] Chew M.D. Idiopathic Progress Office 09/19/2014 [facility] Fawad Walton 356.4 Polyneuropathy Visit 1:30p Services [facility] Chew M.D. Idiopathic Progress Office 06/06/2014 [facility] Fawad Walton 356.4 Polyneuropathy Visit 10:00a Services [facility] Ad[facility] Chew M.D. 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 at [facility]12/07/2018 - Corey Sweeney NPM54.5 Low back painComments:I have resubmitted the prescriptions for the pain medication.Follow up:f/u 3 months
[2019-01-05 17:59] VITALS: BP 117/81
--- NOTE | 2019-01-05 18:55 | UC ---
Respiratory Complaint HPI - HPI Summary HPI Summary: 44 year old female presents with 3 day history of chest "tightness" and dry, non -productive cough. Associated with some mild nasal congestion. States she has been using her son's albuterol inhaler with some relief. Denies fever, chills, ear pain, sore throat, shortness of breath, abdominal pain, nausea, or vomiting. - History of Current Complaint Chief Complaint: UCRespiratory Stated Complaint: COUGH Time Seen by Provider: 01/05/19 18:49 Hx Obtained From: Patient Hx Last Menstrual Period: 2 weeks Pain Intensity: 4 - Allergies/Home Medications Allergies/Adverse Reactions: Allergies Allergy/AdvReac Type Severity Reaction Status Date / Time diphenhydramine Allergy Intermediate Hives Verified 01/05/19 17:59 hydrocodone Allergy Intermediate Hives Verified 01/05/19 17:59 Influenza Virus Vaccines Allergy Intermediate Hives Verified 01/05/19 17:59 prednisone Allergy Intermediate Hives Verified 01/05/19 17:59 pneumococcal vaccine Allergy Hives Verified 01/05/19 17:59 pickles Allergy Severe Hives Uncoded 01/05/19 17:59 PPD Allergy Severe Hives Uncoded 01/05/19 17:59 bleach Allergy Hives Uncoded 01/05/19 17:59 PMH/Surg Hx/FS Hx/Imm Hx - Additional Past Medical History Additional PMH: Ankylosising spondylitis, chronic pain syndrome Endocrine History: Diabetes Psychological History: Anxiety, Depression - Surgical History Surgical History: Yes Surgery Procedure, Year, and Place: gastric sleve 06/27/15. [facility] - Family History Known Family History: Positive: Hypertension, Diabetes Family History: PT ADOPTED SO NOT CERTAIN OF FAMILY HX - Social History Occupation: Disabled Lives: With Family Alcohol Use: Rare Substance Use Type: Prescribed Substance Use Comment - Amount & Last Used: oxycodone Smoking Status (MU): Former Smoker Type: eCigarettes Length of Time of Smoking/Using Tobacco: 18 years When Did the Patient Quit Smoking/Using Tobacco: 2007 - Immunization History Most Recent Influenza Vaccination: doesn't get--allergic Most Recent Pneumonia Vaccination: none Review of Systems All Other Systems Reviewed And Are Negative: Yes Constitutional: Negative: Fever, Chills Skin: Positive: Negative Eyes: Negative: Drainage, Eye Redness ENT: Positive: Nasal Discharge, Sinus Congestion. Negative: Sore Throat, Ear Ache, Sinus Pain/Tenderness Respiratory: Positive: Cough. Negative: Shortness Of Breath Cardiovascular: Negative: Palpitations, Chest Pain Gastrointestinal: Negative: Abdominal Pain, Vomiting, Diarrhea, Nausea Genitourinary: Positive: Negative Musculoskeletal: Positive: Negative Neurological: Positive: Negative Is Patient Immunocompromised?: No Physical Exam - Summary Physical Exam Summary: GENERAL APPEARANCE: Well developed, well nourished, alert and cooperative, and appears to be in no acute distress. EYES: Conjunctiva clear. No drainage. Vision is grossly intact. EARS: External auditory canals and tympanic membranes clear, hearing grossly intact. NOSE: Mild nasal congestion. No nasal discharge. THROAT: Pharynx normal. No tonsilar inflammation, swelling, exudate, or lesions. Uvula midline. Oral cavity normal. Teeth and gingiva in good general condition. NECK: Neck supple, non-tender without lymphadenopathy. CARDIAC: Normal S1 and S2. No S3, S4 or murmurs. Rhythm is regular. There is no peripheral edema, cyanosis or pallor. Extremities are warm and well perfused. Capillary refill is less than 2 seconds. Peripheral pulses intact. LUNGS: Clear to auscultation without rales, rhonchi, wheezing or diminished breath sounds. Dry, non-productive cough. ABDOMEN: Positive bowel sounds. Soft, nondistended, nontender. No guarding or rebound. No masses or hepatosplenomegally. MUSKULOSKELETAL: ROM intact to all extremities. No joint erythema or tenderness. Normal muscular development. Normal gait. SKIN: Skin normal color, texture and turgor with no lesions or eruptions. Triage Information Reviewed: Yes Vital Signs: Initial Vital Signs Temp 98 F 01/05/19 17:54 Pulse 90 01/05/19 17:54 Resp 16 01/05/19 17:54 BP 117/81 01/05/19 17:54 Pulse Ox 98 01/05/19 17:54 Vital Signs Reviewed: Yes Respiratory Course/Dx - Course Course Of Treatment: 44 year old female presents with 3 day history of chest "tightness" and dry, non-productive cough. Associated with some mild nasal congestion. States she has been using her son's albuterol inhaler with some relief. Denies fever, chills, ear pain, sore throat, shortness of breath, abdominal pain, nausea, or vomiting. Afebrile. VSS. Exam reveals an adult female in no acute distress with mild nasal congestion, dry non-productive cough , clear bilateral breath sounds, and otherwise unremarkable exam. Will treat symptomatically for an acute bronchitis including Tessalon Perles 1 cap every 8 hours as needed for cough and albuterol inhaler 2 puffs every 4-6 hours as needed for SOB or wheezing. She is to follow up with her PCP in 7 days if no improvement. Anticipatory guidance and warning symptoms reviewed with patient. Verbalizes understanding and agrees with POC. - Differential Dx/Diagnosis Differential Diagnosis/HQI/PQRI: Bronchitis, Influenza, Lower Resp Infection, Sinusitis Provider Diagnosis: Acute bronchitis Discharge - Sign-Out/Discharge Documenting (check all that apply): Patient Departure All imaging exams completed and their final reports reviewed: No Studies - Discharge Plan Condition: Stable Disposition: HOME Prescriptions: Albuterol HFA INHALER* [Ventolin HFA Inhaler*] 2 puff INH Q4H PRN #1 mdi PRN Reason: Sob/Wheezing Benzonatate CAP* [Tessalon 100 MG CAP*] 100 mg PO TID PRN #30 cap PRN Reason: Cough Patient Education Materials: Acute Bronchitis (ED) Forms: *Work Release Referrals: Corey Sweeney, [facility] [Primary Care Provider] - 7 Days (If no improvement in symptoms.) Additional Instructions: Your history and exam are consistent with acute bronchitis which is most often caused by a viral infection. Viral infections do not respond to antibiotics and are limited to the treatment of symptoms. Viral infections typically run their course in 7-10 days. Be aware that the cough with bronchitis may persist for 2-3 weeks even if other symptoms have improved. Get plenty of rest. Drink plenty of fluids. Run a cool mist humidifer in your room at night. Take over the counter acetaminophen (Tylenol) or ibuprofen (Advil, Motrin) according to directions as needed for pain or fever. Take Tessalon Perles 1 cap every 8 hours as needed for cough. Use albuterol inhaler 2 puffs every 4-6 hours as needed for shortness of breath , wheezing, or coughing fits. Follow up with your primary care provider in 7 days if symptoms do not improve. Seek immediate medical attention in the emergency room if you have fever greater than 100.5 F despite taking acetaminophen or ibuprofen, have chest pain , difficulty breathing, or have any worsening of symptoms. - Billing Disposition and Condition Condition: STABLE Disposition: Home
== END 2019-01-05 19:10 | disposition home or self-care (01) ==
LOC: UCEAST 17:41
DX: J20.9 Acute bronchitis, unspecified (principal); F17.200 Nicotine dependence, unspecified, uncomplicated; E11.9 Type 2 diabetes mellitus without complications; Z88.7 Allergy status to serum and vaccine; Z91.09 Other allergy status, other than to drugs and biological substances; Z91.018 Allergy to other foods; Z88.8 Allergy status to other drugs, medicaments and biological substances; Z88.5 Allergy status to narcotic agent
CPT/HCPCS: 99212; G0463

== ENCOUNTER 2019-07-25 14:17 | Emergency (ER) | payer MEDICARE ==
--- OUTSIDE RECORDS SUMMARY | 2019-07-25 14:29 | XMS REPORT | Continuity of Care Document ---
:1975 External Reference #:[id number] Author Name Rajesh Miles M.D. (transmitted by agent of provider Alexandra Lopez) Address [address] [place] [address] Care Team Providers Name Role Phone Corey Sweeney NP - Internal Medicine Care Team Information Knowledge Architect [phone] Problems Active Problems Provider Date Polyneuropathy Marc Chew M.D. Onset: 09/19/2014 Arthritis Onset: Diabetes mellitus Onset: Anxiety Onset: Liver mass Onset: Social History Type Date Description Comments Sex Unknown ETOH Use Denies alcohol use Tobacco Use Start: Unknown End: Patient is a former Quit 2007; max 1ppd, Unknown smoker began age20 Smoking Status Reviewed: 07/07/19 Patient is a former Quit 2007; max 1ppd, smoker began age20 Exercise 09/23/2016 Exercises sporadically bowls 1-3x/week Type/Frequency Allergies, Adverse Reactions, Alerts Active Allergies Reaction Severity Comments Date Prednisone Hives 06/06/2014 Benadryl Hives 06/06/2014 Flu Virus Vaccine Hives 06/06/2014 PPD Test Hives 06/06/2014 Hydrocodone Hives 06/06/2014 Medications Active Medications SIG Qnty Indications Ordering Date Provider Sulfasalazine take 2 tabs in the 180tabs Rajesh Miles, 12/20/2018 500mg morning and 2 tabs M.D. Tablets in the evening for a total of 4 daily tabs daily ongoing A25-Wjttvn take one 90units Rajesh Miles, 11/16/2018 1mg capsule/tablet M.D. Chewtabs daily sublingually Tizanidine HCL take 1/2-1 tablet 60tabs Corey Sweeney NP 11/15/2018 4mg by mouth twice a Tablets day as directed for chronic pain Oxycodone HCL 1 by mouth three 90tabs M54.5 Corey Sweeney NP 10/06/2018 5mg times daily as Tablets needed ( claim # [id number]) G89.29 Xtampza ER one tab twice daily ( 60units M54.5 Corey Sweeney [employer] 10/06/2018 9mg C12a claim # [id number]) G89.29 Knee Sleeve/Open wear on right 1units S81.011D Corey Sweeney, 06/25/2018 Patella/Medium/Neoprene knee as needed. [employer] Misc Onetouch Delica Lancets Fine Unknown 30G 30G Misc Onetouch Verio Unknown Strips Onetouch Verio Iq Blood Use as Directed Unknown Glucose Monitoring System w/Device Kit Xanax 1 to 2 tabs as Unknown 0.5mg Tablets needed for severe anxiety attack up to two times a day Fluoxetine HCL 1 by mouth Unknown 10mg Capsules every day Fluoxetine HCL 1 by mouth Unknown 20mg Capsules every day Trazodone HCL 1-3 tabs every Unknown 100mg Tablets night at bedtime Clonidine HCL Take 1 Tablet Unknown 0.1mg Tablets By Mouth Three Times A Day Medications Administered in Office Medication SIG Qnty Indications Ordering Provider Date Dexamethasone Sodium Bobo Potter MD 09/23/2016 Phosphate, 1 MG Injection Immunizations CPT Code Status Date Vaccine Reaction Lot # [id number] Given 08/21/2017 Pneumonia Vaccine Pt. tolerated well. No reaction [id number] noted. Vital Signs Date Vital Result Comment 07/07/2019 4:15pm Height 66 inches 5'6" Weight 232.50 lb Heart Rate 72 /min BP Systolic Sitting 122 mmHg BP Diastolic Sitting 78 mmHg Pain Level 6 O2 % BldC Oximetry 98 % BMI (Body Mass Index) 37.5 kg/m2 06/22/2019 3:51pm Height 66 inches 5'6" Weight 234.12 lb Heart Rate 67 /min BP Systolic 103 mmHg BP Diastolic 71 mmHg Body Temperature 97.3 F O2 % BldC Oximetry 96 % BMI (Body Mass Index) 37.8 kg/m2 Results Test Date Facility Test Result H/L Range Note Drug Abuse [facility] Urine Presumptive Posi Abnormal 1 20 Urine [address] Amphetamine <SEE NOTE> ng/[place] [address] [phone] Urine Barbiturates Negative ng/mL 2 Urine Benzodiazepines Presumptive Posi <SEE NOTE> Abnormal 3 ng/mL Urine Cocaine Negative ng/mL 4 Urine Phencyclidine Negative ng/mL Cutoff: 25 Urine Tetrahydrocannabinol Negative ng/mL Cutoff: 50 5 Creatinine, Urine 200.6 mg/dL Specific [place] 1.019 pH 5.6 Oxidants Negative 6 Adulterants Comment Normal Codeine, Ur Not Detected ng/mL Cutoff: 25 7 Nucgbzd-7-lcey-glucuronide, Ur Not Detected ng/mL 8 Morphine, Ur Not Detected ng/mL Cutoff: 25 9 Xyalcnuv-5-zbqq-glucuronide, U Not Detected ng/mL 10 6-monoacetylmorphine, Ur Not Detected ng/mL Cutoff: 25 11 Hydrocodone, Ur Not Detected ng/mL Cutoff: 25 12 Norhydrocodone, Ur Not Detected ng/mL Cutoff: 25 13 Dihydrocodeine, Ur Not Detected ng/mL Cutoff: 25 14 Hydromorphone, Ur Not Detected ng/mL Cutoff: 25 15 Kbakttcmedakc6ohjtlfoilupztfp Not Detected ng/mL 16 Oxycodone, Ur Present ng/mL Abnormal Cutoff: 25 17 Noroxycodone, Ur Present ng/mL Abnormal Cutoff: 25 18 Oxymorphone, Ur Not Detected ng/mL Cutoff: 25 19 Fgwwylwocyw-5-maoa-glucuronide Present ng/mL Abnormal 20 Noroxymorphone, Ur Present ng/mL Abnormal Cutoff: 25 21 Fentanyl, Ur Not Detected ng/mL Cutoff: 2 22 Norfentanyl, Ur Not Detected ng/mL Cutoff: 2 23 Meperidine, Ur Not Detected ng/mL Cutoff: 25 24 Normeperidine, Ur Not Detected ng/mL Cutoff: 25 25 Naloxone, Ur Not Detected ng/mL Cutoff: 25 26 Igdcvpqh-1-hdsa-glucuronide, U Not Detected ng/mL 27 Methadone, Ur Not Detected ng/mL Cutoff: 25 28 Eddp, Ur Not Detected ng/mL Cutoff: 25 29 Propoxyphene, Ur Not Detected ng/mL Cutoff: 25 30 Norpropoxyphene, Ur Not Detected ng/mL Cutoff: 25 31 Tramadol, Ur Not Detected ng/mL Cutoff: 25 32 O-desmethyltramadol, Ur Not Detected ng/mL Cutoff: 25 33 Tapentadol, Ur Not Detected ng/mL Cutoff: 25 34 N-desmethyltapentadol, Ur Not Detected ng/mL Cutoff: 50 35 Vjfwtvuaql-drbc-xnfdnqtlgwm, U Not Detected ng/mL 36 Buprenorphine, Ur Not Detected ng/mL Cutoff: 5 37 Norbuprenorphine, Ur Not Detected ng/mL Cutoff: 5 38 Norbuprenorphine glucuronide Not Detected ng/mL Cutoff: 20 39 Opioid Interpretation See Comment 40 Urine 03/25/2019 [facility] Urine Negative Cutoff: [address] Amphetamine by ng/[place] [address] GC/MS [phone] Urine Methamphetamine by GC/MS Negative ng/mL Cutoff: 25 Phentermine-by GC/MS Negative ng/mL Cutoff: 25 Pseudoephedrine/Ephedr GC/MS Negative ng/mL Cutoff: 25 Mda(Ecstacy metabolite) GC/MS Negative ng/mL Cutoff: 25 Mdma(Ecstacy)-by GC/MS Negative ng/mL Cutoff: 25 Urine Amphetamines Interp Negative. 41 Urine Benzodiazepines 03/25/2019 [facility] Urine Negative [address] Lorazepam ng/[place] [address] GC/MS [phone] Urine Nordiazepam GC/MS Negative ng/mL 43 Urine Oxazepam GC/MS Negative ng/mL 44 Urine Temazepam GC/MS Negative ng/mL 45 Ur Oh Ethyl Flurazepam GC/MS Negative ng/mL 46 Ur 7 [place] Clonazepam GC/MS Negative ng/mL 47 Ur 7 [place] Flunitrazepam GC/MS Negative ng/mL Cutoff: 50 Ur Alpha Oh Alprazolam GC/MS 228 ng/mL 48 Ur Alpha Oh Triazolam GC/MS Negative ng/mL 49 Ur Benzodiazepine Interp Positive. 50 Drug Abuse 03/07/2019 [facility] Urine Presumptive Abnormal 51 [address] Amphetamine Posi <SEE NOTE> [place] [address] ng/mL [phone] Urine Barbiturates Negative ng/mL 52 Urine Benzodiazepines Presumptive Posi <SEE NOTE> Abnormal 53 ng/mL Urine Cocaine Negative ng/mL 54 Urine Phencyclidine Negative ng/mL Cutoff: 25 Urine Tetrahydrocannabinol Negative ng/mL Cutoff: 50 55 Creatinine, Urine 297.5 mg/dL Specific [place] 1.020 pH 5.7 Oxidants Negative 56 Adulterants Comment Normal Codeine, Ur Not Detected ng/mL Cutoff: 25 57 Igipesd-0-yvsr-glucuronide, Ur Not Detected ng/mL 58 Morphine, Ur Not Detected ng/mL Cutoff: 25 59 Wutfoxcq-2-wsbr-glucuronide, U Not Detected ng/mL 60 6-monoacetylmorphine, Ur Not Detected ng/mL Cutoff: 25 61 Hydrocodone, Ur Not Detected ng/mL Cutoff: 25 62 Norhydrocodone, Ur Not Detected ng/mL Cutoff: 25 63 Dihydrocodeine, Ur Not Detected ng/mL Cutoff: 25 64 Hydromorphone, Ur Not Detected ng/mL Cutoff: 25 65 Ybwlcyywtpyfh0jcfbsjauauubemv Not Detected ng/mL 66 Oxycodone, Ur Not Detected ng/mL Cutoff: 25 67 Noroxycodone, Ur Not Detected ng/mL Cutoff: 25 68 Oxymorphone, Ur Not Detected ng/mL Cutoff: 25 69 Orenxpjzoiy-9-zyir-glucuronide Not Detected ng/mL 70 Noroxymorphone, Ur Not Detected ng/mL Cutoff: 25 71 Fentanyl, Ur Not Detected ng/mL Cutoff: 2 72 Norfentanyl, Ur Not Detected ng/mL Cutoff: 2 73 Meperidine, Ur Not Detected ng/mL Cutoff: 25 74 Normeperidine, Ur Not Detected ng/mL Cutoff: 25 75 Naloxone, Ur Not Detected ng/mL Cutoff: 25 76 Ftnvmtcv-8-jytf-glucuronide, U Not Detected ng/mL 77 Methadone, Ur Not Detected ng/mL Cutoff: 25 78 Eddp, Ur Not Detected ng/mL Cutoff: 25 79 Propoxyphene, Ur Not Detected ng/mL Cutoff: 25 80 Norpropoxyphene, Ur Not Detected ng/mL Cutoff: 25 81 Tramadol, Ur Not Detected ng/mL Cutoff: 25 82 O-desmethyltramadol, Ur Not Detected ng/mL Cutoff: 25 83 Tapentadol, Ur Not Detected ng/mL Cutoff: 25 84 N-desmethyltapentadol, Ur Not Detected ng/mL Cutoff: 50 85 Nykzvmjhnd-iyul-tcwulkotimj, U Not Detected ng/mL 86 Buprenorphine, Ur Not Detected ng/mL Cutoff: 5 87 Norbuprenorphine, Ur Not Detected ng/mL Cutoff: 5 88 Norbuprenorphine glucuronide Not Detected ng/mL Cutoff: 20 89 Opioid Interpretation See Comment 90 Urine Benzodiazepines 03/07/2019 [facility] Urine Negative [address] Lorazepam ng/[place] [address] GC/MS [phone] Urine Nordiazepam GC/MS Negative ng/mL 92 Urine Oxazepam GC/MS Negative ng/mL 93 Urine Temazepam GC/MS See Comment ng/mL 94 Ur Oh Ethyl Flurazepam GC/MS Negative ng/mL 95 Ur 7 [place] Clonazepam GC/MS Negative ng/mL 96 Ur 7 [place] Flunitrazepam GC/MS Negative ng/mL Cutoff: 50 Ur Alpha Oh Alprazolam GC/MS 219 ng/mL 97 Ur Alpha Oh Triazolam GC/MS Negative ng/mL 98 Ur Benzodiazepine Interp Positive. 99 Urine 03/07/2019 [facility] Urine Negative Cutoff: [address] Amphetamine by ng/[place] [address] GC/MS [phone] Urine Methamphetamine by GC/MS Negative ng/mL Cutoff: 25 Phentermine-by GC/MS Negative ng/mL Cutoff: 25 Pseudoephedrine/Ephedr GC/MS Negative ng/mL Cutoff: 25 Mda(Ecstacy metabolite) GC/MS Negative ng/mL Cutoff: 25 Mdma(Ecstacy)-by GC/MS Negative ng/mL Cutoff: 25 Urine Amphetamines Interp Negative. 100 1 Presumptive Positive Drug confirmation to follow. Presumptive Positive means that the screening method is positive, but the test needs to be run by a confirmatory method before being finalized. REFERENCE VALUE Cutoff: 500 2 REFERENCE VALUE Cutoff: 200 3 Presumptive Positive Drug confirmation to follow. Presumptive Positive means that the screening method is positive, but the test needs to be run by a confirmatory method before being finalized. REFERENCE VALUE Cutoff: 100 4 REFERENCE VALUE Cutoff: 150 5 ADDITIONAL INFORMATION This report is intended for use in clinical monitoring or management of patients. It is not intended for use in employment-related testing. 6 REFERENCE VALUE Cutoff: 200 mg/L 7 Tylenol 3 8 Metabolite of codeine REFERENCE VALUE Cutoff: 100 9 Portia Rivera, [place] Contin; Also a minor metabolite (10%) of codeine and can be seen in low concentrations (<2,000 ng/mL) with poppy seed ingestion. 10 Metabolite of morphine REFERENCE VALUE Cutoff: 100 11 Metabolite of heroin 12 Lortab, [place]on, Vicodin; Also a very minor metabolite of codeine and impurity (<1%) of oxycodone. 13 Metabolite of hydrocodone 14 Metabolite of hydrocodone 15 Dilaudid, Exalgo; Also a metabolite of hydrocodone and a minor (<5%) metabolite of morphine. 16 Metabolite of hydromorphone REFERENCE VALUE Cutoff: 100 17 Endocet, Percocet, Oxycontin 18 Metabolite of oxycodone 19 Numorphan, Opana; Also a metabolite of oxycodone. 20 Metabolite of oxymorphone REFERENCE VALUE Cutoff: 100 21 Metabolite of oxymorphone 22 Actiq, Duragesic, Fentora 23 Metabolite of fentanyl 24 Demerol 25 Metabolite of meperidine 26 Narcan 27 Metabolite of naloxone REFERENCE VALUE Cutoff: 100 28 Dolophine 29 Metabolite of methadone 30 Darvon, Darvocet 31 Metabolite of propoxyphene 32 Tradol, Ultram, Ultracet 33 Metabolite of tramadol 34 Nucynta 35 Metabolite of tapentadol 36 Metabolite of tapentadol REFERENCE VALUE Cutoff: 100 37 Buprenex, Suboxone 38 Metabolite of buprenorphine 39 Metabolite of buprenorphine 40 Test detected the presence of oxycodone and several metabolites (noroxycodone, noroxymorphone, and lfebcpwvpom-3-dosf-glucuronide). Suspect use of oxycodone and/or oxymorphone within the past three days. ADDITIONAL INFORMATION This test was developed and its performance characteristics determined by [facility] in a manner consistent with CLIA requirements. This test has not been cleared or approved by the U.S. Food and Drug Administration. Test Performed by: [facility] - [facility] [address] [place] [address] 41 ADDITIONAL INFORMATION This report is intended for use in clinical monitoring and management of patients. It is not intended for use in employment-related testing. This test was developed and its performance characteristics determined by [facility] in a manner consistent with CLIA requirements. This test has not been cleared or approved by the U.S. Food and Drug Administration. Test Performed by: [facility] - [place] [id number] [place] [address] 42 REFERENCE VALUE Cutoff: 100 43 REFERENCE VALUE Cutoff: 100 44 REFERENCE VALUE Cutoff: 100 45 Testing performed at a x2 dilution; limit of quantitation is elevated. REFERENCE VALUE Cutoff: 100 46 REFERENCE VALUE Cutoff: 100 47 REFERENCE VALUE Cutoff: 100 48 REFERENCE VALUE Cutoff: 100 49 REFERENCE VALUE Cutoff: 100 50 ADDITIONAL INFORMATION This report is intended for use in clinical monitoring and management of patients. It is not intended for use in employment-related testing. This test was developed and its performance characteristics determined by [facility] in a manner consistent with CLIA requirements. This test has not been cleared or approved by the U.S. Food and Drug Administration. Test Performed by: [facility] - [place] [address] [place] [address] 51 Presumptive Positive Drug confirmation to follow. Presumptive Positive means that the screening method is positive, but the test needs to be run by a confirmatory method before being finalized. REFERENCE VALUE Cutoff: 500 52 REFERENCE VALUE Cutoff: 200 53 Presumptive Positive Drug confirmation to follow. Presumptive Positive means that the screening method is positive, but the test needs to be run by a confirmatory method before being finalized. REFERENCE VALUE Cutoff: 100 54 REFERENCE VALUE Cutoff: 150 55 ADDITIONAL INFORMATION This report is intended for use in clinical monitoring or management of patients. It is not intended for use in employment-related testing. 56 REFERENCE VALUE Cutoff: 200 mg/L 57 Tylenol 3 58 Metabolite of codeine REFERENCE VALUE Cutoff: 100 59 Portia Rivera, [place] Contin; Also a minor metabolite (10%) of codeine and can be seen in low concentrations (<2,000 ng/mL) with poppy seed ingestion. 60 Metabolite of morphine REFERENCE VALUE Cutoff: 100 61 Metabolite of heroin 62 Lortab, Weston, Vicodin; Also a very minor metabolite of codeine and impurity (<1%) of oxycodone. 63 Metabolite of hydrocodone 64 Metabolite of hydrocodone 65 Dilaudid, Exalgo; Also a metabolite of hydrocodone and a minor (<5%) metabolite of morphine. 66 Metabolite of hydromorphone REFERENCE VALUE Cutoff: 100 67 Endocet, Percocet, Oxycontin 68 Metabolite of oxycodone 69 Numorphan, Opana; Also a metabolite of oxycodone. 70 Metabolite of oxymorphone REFERENCE VALUE Cutoff: 100 71 Metabolite of oxymorphone 72 Actiq, Duragesic, Fentora 73 Metabolite of fentanyl 74 Demerol 75 Metabolite of meperidine 76 Narcan 77 Metabolite of naloxone REFERENCE VALUE Cutoff: 100 78 Dolophine 79 Metabolite of methadone 80 Darvon, Darvocet 81 Metabolite of propoxyphene 82 Tradol, Ultram, Ultracet 83 Metabolite of tramadol 84 Nucynta 85 Metabolite of tapentadol 86 Metabolite of tapentadol REFERENCE VALUE Cutoff: 100 87 Buprenex, Suboxone 88 Metabolite of buprenorphine 89 Metabolite of buprenorphine 90 No opioids were detected. The absence of expected drug(s) and/or drug metabolite(s) may indicate non-compliance, altered pharmacokinetics, inappropriate timing of specimen collection relative to drug administration, diluted/adulterated urine, or limitations of testing. ADDITIONAL INFORMATION This test was developed and its performance characteristics determined by [facility] in a manner consistent with CLIA requirements. This test has not been cleared or approved by the U.S. Food and Drug Administration. Test Performed by: [facility] [address] [place] [address] 91 REFERENCE VALUE Cutoff: 100 92 REFERENCE VALUE Cutoff: 100 93 REFERENCE VALUE Cutoff: 100 94 Unknown interfering substance present; unable to obtain results. REFERENCE VALUE Cutoff: 100 95 REFERENCE VALUE Cutoff: 100 96 REFERENCE VALUE Cutoff: 100 97 REFERENCE VALUE Cutoff: 100 98 REFERENCE VALUE Cutoff: 100 99 ADDITIONAL INFORMATION This report is intended for use in clinical monitoring and management of patients. It is not intended for use in employment-related testing. This test was developed and its performance characteristics determined by [facility] in a manner consistent with CLIA requirements. This test has not been cleared or approved by the U.S. Food and Drug Administration. Test Performed by: [facility] - [place] [address] [place] [id number] [phone] ADDITIONAL INFORMATION This report is intended for use in clinical monitoring and management of patients. It is not intended for use in employment-related testing. This test was developed and its performance characteristics determined by [facility] in a manner consistent with CLIA requirements. This test has not been cleared or approved by the U.S. Food and Drug Administration. Test Performed by: [facility] - [place] [address] [place] [id number] Procedures Date Code Description Status 09/23/2016 [id number] Diabetic Retinal Eye Exam Completed Medical Devices Description No Information Available Encounters Type Date Location Provider Dx Diagnosis Office Visit 06/22/2019 [facility] Internal Corey Sweeney NP M54.5 Low back pain 3:40p Medicine - [facility] Office Visit 01/28/2019 Rheumatology Rajesh Miles M46.90 Unspecified 9:40a [facility] Fabian inflammatory spondylopathy, site unspecified R70.0 Elevated erythrocyte sedimentation rate Z79.899 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 unspecified 07/07/2019 R70.0 Elevated erythrocyte sedimentation rate Rajesh Miles M.D. 07/07/2019 Z79.899 [facility] drug therapy Rajesh Miles M.D. 07/07/2019 M54.5 Low back pain Rajesh Miles M.D. 07/07/2019 R06.83 Snoring Rajesh Miles M.D. 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 unspecified 01/28/2019 R70.0 Elevated erythrocyte sedimentation rate Rajesh Miles M.D. 01/28/2019 Z79.899 [facility] [place] drug therapy Rajesh Milse M.D. 01/28/2019 M54.5 Low back pain Rajesh Miles M.D. Plan of Treatment Future Appointment(s):10/06/2019 3:20 pm - Rajesh Miles M.D. at [facility]09/23/2019 8:40 am - [facility] Rajesh Miles M.D.M46.90 Unspecified inflammatory spondylopathy, site hmxthjkncrxA60.0 Elevated erythrocyte sedimentation rateZ79.899 Other tank terminal gauger (current) drug awxmluhY20.5 Low back painR06.83 SnoringRef[place]:[facility] [place] [facility] [facility],Diag/ClinicFollow up:Follow up in 3 months or sooner if needed Functional Status Description No Information Available Mental Status Description No Information Available Referrals Refer to Reason for Referral Status Appt Date [facility] [place] [facility] Please evaluate for sleep apnea Created [address] [place] [place] [id number] [phone]
--- OUTSIDE RECORDS SUMMARY | 2019-07-25 14:29 | XMS REPORT | Continuity of Care Document ---
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 Onset: 09/19/2014 Arthritis Onset: Diabetes mellitus Onset: Anxiety Onset: Liver mass Onset: Social History Type Date Description Comments Sex Unknown ETOH Use Denies alcohol use Tobacco Use Start: Unknown End: Patient is a former Quit 2007; max 1ppd, Unknown smoker began age20 Smoking Status Reviewed: 06/22/19 Patient is a former Quit 2007; max 1ppd, smoker began age20 Exercise 09/23/2016 Exercises sporadically bowls 1-3x/week Type/Frequency Allergies, Adverse Reactions, Alerts Active Allergies Reaction Severity Comments Date Prednisone Hives 06/06/2014 Benadryl Hives 06/06/2014 Flu Virus Vaccine Hives 06/06/2014 PPD Test Hives 06/06/2014 Hydrocodone Hives 06/06/2014 Medications Active Medications SIG Qnty Indications Ordering Date Provider Sulfasalazine Take 1 Tablet By 180tabs Rajesh Miles, 12/20/2018 500mg Mouth Twice A Day M.D. Tablets P94-Hknhzx take one 90units Rajesh Miles, 11/16/2018 1mg capsule/tablet M.D. Chewtabs daily sublingually Tizanidine HCL take 1/2-1 tablet 60tabs Corey Sweeney NP 11/15/2018 4mg by mouth twice a Tablets day as directed for chronic pain Oxycodone HCL 1 by mouth three 90tabs M54.5 Corey Sweeney, DAVID 10/06/2018 5mg times daily as Tablets needed ( claim # [id number]) G89.29 Xtampza ER one tab twice daily ( 60units M54.5 Corey Sweeney, SECURITY CLERK 10/06/2018 9mg C12a claim # [id number]) G89.29 Knee Sleeve/Open wear on right 1units S81.011D Corey Sweeney, 06/25/2018 Patella/Medium/Neoprene knee as needed. SECURITY CLERK Misc Onetouch Delica Lancets Fine Unknown 30G [...] Code Status Date Vaccine Reaction Lot # [id number] Given 08/21/2017 Pneumonia Vaccine Pt. tolerated well. No reaction [id number] noted. Vital Signs Date Vital Result Comment 06/22/2019 3:51pm Height 66 inches 5'6" Weight 234.12 lb Heart Rate 67 /min BP Systolic 103 mmHg BP Diastolic 71 mmHg Body Temperature 97.3 F O2 % BldC Oximetry 96 % BMI (Body Mass Index) 37.8 kg/m2 03/07/2019 8:56am Height 66 inches 5'6" Weight 224.50 lb Heart Rate 80 /min BP Systolic 125 mmHg BP Diastolic 81 mmHg Body Temperature 97.2 F O2 % BldC Oximetry 96 % BMI (Body Mass Index) 36.2 kg/m2 Results Test Date Facility Test Result H/L Range Note Drug Abuse [facility] Urine Presumptive Posi Abnormal 1 20 Urine [address] Amphetamine <SEE NOTE> ng/[place] [address] [phone] Urine Barbiturates Negative ng/mL 2 Urine Benzodiazepines Presumptive Posi <SEE NOTE> Abnormal 3 ng/mL Urine Cocaine Negative ng/mL 4 Urine Phencyclidine Negative ng/mL Cutoff: 25 Urine Tetrahydrocannabinol Negative ng/mL Cutoff: 50 5 Creatinine, Urine 200.6 mg/dL Specific [place] 1.019 pH 5.6 Oxidants Negative 6 Adulterants Comment Normal Codeine, Ur Not Detected ng/mL Cutoff: 25 7 Vkqvjiu-1-jzkk-glucuronide, Ur Not Detected ng/mL 8 Morphine, Ur Not Detected ng/mL Cutoff: 25 9 Sakhbtbw-5-jwhj-glucuronide, U Not Detected ng/mL 10 6-monoacetylmorphine, Ur Not Detected ng/mL Cutoff: 25 11 Hydrocodone, Ur Not Detected ng/mL Cutoff: 25 12 Norhydrocodone, Ur Not Detected ng/mL Cutoff: 25 13 Dihydrocodeine, Ur Not Detected ng/mL Cutoff: 25 14 Hydromorphone, Ur Not Detected ng/mL Cutoff: 25 15 Obdnshtorhhoh0dnozacnwfbnezpx Not Detected ng/mL 16 Oxycodone, Ur Present ng/mL Abnormal Cutoff: 25 17 Noroxycodone, Ur Present ng/mL Abnormal Cutoff: 25 18 Oxymorphone, Ur Not Detected ng/mL Cutoff: 25 19 Drmfxmyxyxd-0-hrrs-glucuronide Present ng/mL Abnormal 20 Noroxymorphone, Ur Present ng/mL Abnormal Cutoff: 25 21 Fentanyl, Ur Not Detected ng/mL Cutoff: 2 22 Norfentanyl, Ur Not Detected ng/mL Cutoff: 2 23 Meperidine, Ur Not Detected ng/mL Cutoff: 25 24 Normeperidine, Ur Not Detected ng/mL Cutoff: 25 25 Naloxone, Ur Not Detected ng/mL Cutoff: 25 26 Zjyeryle-7-xiex-glucuronide, U Not Detected ng/mL 27 Methadone, Ur [...] Ur Not Detected ng/mL Cutoff: 50 35 Hszgwdwtmk-mfqt-evqdlferjek, U Not Detected ng/mL 36 Buprenorphine, Ur Not Detected ng/mL Cutoff: 5 37 Norbuprenorphine, Ur Not Detected ng/mL Cutoff: 5 38 Norbuprenorphine glucuronide Not Detected ng/mL Cutoff: 20 39 Opioid Interpretation See Comment 40 Urine 03/25/2019 [facility] Urine Negative Cutoff: [address] Amphetamine by ng/[place] [address] GC/MS [phone] Urine Methamphetamine by GC/MS Negative ng/mL Cutoff: 25 Phentermine-by GC/MS Negative ng/mL Cutoff: 25 Pseudoephedrine/Ephedr GC/MS Negative ng/mL Cutoff: 25 Mda(Ecstacy metabolite) GC/MS Negative ng/mL Cutoff: 25 Mdma(Ecstacy)-by GC/MS Negative ng/mL Cutoff: 25 Urine Amphetamines Interp Negative. 41 Urine Benzodiazepines 03/25/2019 [facility] Urine Negative [address] Lorazepam ng/[place] [address] GC/MS [phone] Urine Nordiazepam GC/MS Negative ng/mL 43 Urine [...] Benzodiazepine Interp Positive. 50 Drug Abuse 03/07/2019 [facility] Urine Presumptive Abnormal 51 [address] Amphetamine Posi <SEE NOTE> [place] [address] ng/mL [phone] Urine Barbiturates Negative ng/mL 52 Urine Benzodiazepines Presumptive Posi <SEE NOTE> Abnormal 53 ng/mL Urine Cocaine Negative ng/mL 54 Urine Phencyclidine Negative ng/mL Cutoff: 25 Urine Tetrahydrocannabinol Negative ng/mL Cutoff: 50 55 Creatinine, Urine 297.5 mg/dL Specific [place] 1.020 pH 5.7 Oxidants Negative 56 Adulterants Comment Normal Codeine, Ur Not Detected ng/mL Cutoff: 25 57 Kqknzty-4-zryy-glucuronide, Ur Not Detected ng/mL 58 Morphine, Ur Not Detected ng/mL Cutoff: 25 59 Ziqgdsdh-6-pwpb-glucuronide, U Not Detected ng/mL 60 6-monoacetylmorphine, Ur Not Detected ng/mL Cutoff: 25 61 Hydrocodone, Ur Not Detected ng/mL Cutoff: 25 62 Norhydrocodone, Ur Not Detected ng/mL Cutoff: 25 63 Dihydrocodeine, Ur Not Detected ng/mL Cutoff: 25 64 Hydromorphone, Ur Not Detected ng/mL Cutoff: 25 65 Njncmwlijgjwr1wsxdonspkiawtwe Not Detected ng/mL 66 Oxycodone, Ur Not Detected ng/mL Cutoff: 25 67 Noroxycodone, Ur Not Detected ng/mL Cutoff: 25 68 Oxymorphone, Ur Not Detected ng/mL Cutoff: 25 69 Puuhksdbtgv-3-ssaq-glucuronide Not Detected ng/mL 70 Noroxymorphone, Ur Not Detected ng/mL Cutoff: 25 71 Fentanyl, Ur Not Detected ng/mL Cutoff: 2 72 Norfentanyl, Ur Not Detected ng/mL Cutoff: 2 73 Meperidine, Ur Not Detected ng/mL Cutoff: 25 74 Normeperidine, Ur Not Detected ng/mL Cutoff: 25 75 Naloxone, Ur Not Detected ng/mL Cutoff: 25 76 Taxrdstc-7-bepr-glucuronide, U Not Detected ng/mL 77 Methadone, Ur [...] Ur Not Detected ng/mL Cutoff: 50 85 Wmnhoythgx-inzg-smpohtjkipw, U Not Detected ng/mL 86 Buprenorphine, Ur Not Detected ng/mL Cutoff: 5 87 Norbuprenorphine, Ur Not Detected ng/mL Cutoff: 5 88 Norbuprenorphine glucuronide Not Detected ng/mL Cutoff: 20 89 Opioid Interpretation See Comment 90 Urine Benzodiazepines 03/07/2019 [facility] Urine Negative [address] Lorazepam ng/[place] [address] GC/MS [phone] Urine Nordiazepam GC/MS Negative ng/mL 92 Urine [...] Ur Benzodiazepine Interp Positive. 99 Urine 03/07/2019 [facility] Urine Negative Cutoff: [address] Amphetamine by ng/[place] [address] GC/MS [phone] Urine Methamphetamine by GC/MS Negative ng/mL Cutoff: [...] REFERENCE VALUE Cutoff: 100 9 Portia Rivera, Contin; Also a minor metabolite (10%) of codeine and can be seen in low concentrations (<2,000 ng/mL) with poppy seed ingestion. 10 Metabolite of morphine REFERENCE VALUE Cutoff: 100 11 Metabolite of heroin 12 Lortab, Jansen, Vicodin; Also a very minor metabolite of [...] oxycodone and several metabolites (noroxycodone, noroxymorphone, and ixhdmprldyv-9-rrky-glucuronide). Suspect use of oxycodone and/or oxymorphone within the past three days. ADDITIONAL INFORMATION This test was developed and its performance characteristics determined by [facility] in a manner consistent with CLIA requirements. This test has not been cleared or approved by the U.S. Food and Drug Administration. Test Performed by: [facility] [employer] [facility] [address] [place] [phone] ADDITIONAL INFORMATION This report is intended for use in clinical monitoring and management of patients. It is not intended for use in employment-related testing. This test was developed and its performance characteristics determined by [facility] in a manner consistent with CLIA requirements. This test has not been cleared or approved by the U.S. Food and Drug Administration. Test Performed by: [facility] [address] [place] [address] 42 REFERENCE VALUE Cutoff: 100 43 REFERENCE [...] developed and its performance characteristics determined by [facility] in a manner consistent with CLIA requirements. This test has not been cleared or approved by the U.S. Food and Drug Administration. Test Performed by: [facility] [address] [place] [address] 51 Presumptive Positive Drug confirmation to follow. [...] 100 61 Metabolite of heroin 62 Lortab, Jansen, Vicodin; Also a very minor metabolite of [...] developed and its performance characteristics determined by [facility] in a manner consistent with CLIA requirements. This test has not been cleared or approved by the U.S. Food and Drug Administration. Test Performed by: [facility] [address] [place] [address] 91 REFERENCE VALUE Cutoff: 100 92 REFERENCE [...] developed and its performance characteristics determined by [facility] in a manner consistent with CLIA requirements. This test has not been cleared or approved by the U.S. Food and Drug Administration. Test Performed by: [facility] [employer] - [address] [id number] ADDITIONAL INFORMATION This report is intended for use in clinical monitoring and management of patients. It is not intended for use in employment-related testing. This test was developed and its performance characteristics determined by [facility] in a manner consistent with CLIA requirements. This test has not been cleared or approved by the U.S. Food and Drug Administration. 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 unspecified 01/28/2019 R70.0 Elevated erythrocyte sedimentation rate Rajesh Miles M.D. 01/28/2019 Z79.899 Other terminal gauger supervisor (current) drug therapy Rajesh Miles M.D. 01/28/2019 M54.5 Low back pain Rajesh Miles M.D. Plan of Treatment Future Appointment(s):09/23/2019 8:40 am - [facility] am - Rajesh [facility] M.D. at [facility]06/22/2019 - Corey Sweeney NPM54.5 Low back painComments:Continue on current medications.Follow up:3 months Functional Status Description No Information Available Mental Status Description No Information Available Referrals Description No Information Available
== END 2019-07-25 15:05 | disposition left against medical advice (07) ==
LOC: UCCORT 14:17
DX: R07.81 Pleurodynia (principal); M54.9 Dorsalgia, unspecified; Z53.21 Procedure and treatment not carried out due to patient leaving prior to being seen by health care provider

== ENCOUNTER 2019-07-25 15:28 | Emergency (ER) | payer MEDICARE ==
[2019-07-25 15:48] VITALS: BP 112/71
--- NOTE | 2019-07-25 16:11 | UC ---
Minor Trauma HPI - HPI Summary HPI Summary: 44 year old female presents after falling yesterday, no LOC, no head injury, but elbow caught under rib on right side, heard a Pop and had immediate pain. No bruising, pain with deep breathing, moving, coughing. no urinary changes, no blood in urine, no other symptoms. - History of Current Complaint Chief Complaint: UCTrauma Stated Complaint: RIB PAIN Time Seen by Provider: 07/25/19 16:11 Hx Obtained From: Patient Hx Last Menstrual Period: [id number] ?: No Onset/Duration: Sudden Onset, Lasting Days Onset Of Pain: Post Accident Severity Initially: Moderate Severity Currently: Moderate Pain Intensity: 2 Pain Scale Used: 0-10 Numeric Mechanism Of Injury: Fall From Height Of: - standing, Fall From A Standing Position Aggravating Factor(s): Coughing, Deep Breaths, Movement Alleviating Factor(s): Rest Associated Signs And Symptoms: Negative: Loss Of Consciousness, Ecchymosis, Swelling - Allergies/Home Medications Allergies/Adverse Reactions: Allergies Allergy/AdvReac Type Severity Reaction Status Date / Time diphenhydramine Allergy Intermediate Hives Verified 07/25/19 15:49 hydrocodone Allergy Intermediate Hives Verified 07/25/19 15:49 Influenza Virus Vaccines Allergy Intermediate Hives Verified 07/25/19 15:49 prednisone Allergy Intermediate Hives Verified 07/25/19 15:49 pneumococcal vaccine Allergy Hives Verified 07/25/19 15:49 pickles Allergy Severe Hives Uncoded 07/25/19 15:49 PPD Allergy Severe Hives Uncoded 07/25/19 15:49 bleach Allergy Hives Uncoded 07/25/19 15:49 Home Medications: Home Medications FLUoxetine* [PROzac*] 30 mg PO DAILY 07/25/19 [History Confirmed 07/25/19] cloNIDine TAB* [Catapres 0.1 MG TAB*] 0.05 mg PO TID 07/25/19 [History Confirmed 07/25/19] PMH/Surg Hx/FS Hx/Imm Hx Previously Healthy: Yes - Surgical History Surgical History: Yes Surgery Procedure, Year, and Place: gastric sleeve 06/27/15. D & C - Family History Known Family History: Positive: Hypertension, Diabetes Family History: PT ADOPTED SO NOT CERTAIN OF FAMILY HX - Social History Alcohol Use: Rare Substance Use Type: Prescribed Substance Use Comment - Amount & Last Used: oxycodone Smoking Status (MU): Current Some Day Smoker Type: Devan Length of Time of Smoking/Using Tobacco: 18 years When Did the Patient Quit Smoking/Using Tobacco: 2007 - Immunization History Most Recent Influenza Vaccination: doesn't get--allergic Most Recent Pneumonia Vaccination: none Review of Systems All Other Systems Reviewed And Are Negative: Yes Respiratory: Positive: Other - rib pain Musculoskeletal: Positive: Arthralgia, Myalgia Is Patient Immunocompromised?: No Physical Exam Triage Information Reviewed: Yes Appearance: Well-Appearing, No Pain Distress - at rest, pain with deep breathing , moving, Well-Nourished Vital Signs: Initial Vital Signs Temp 97.8 F 07/25/19 15:43 Pulse 75 07/25/19 15:43 Resp 16 07/25/19 15:43 BP 112/71 07/25/19 15:43 Pulse Ox 98 07/25/19 15:43 Vital Signs Reviewed: Yes Respiratory: Positive: Lungs clear, Normal breath sounds, No respiratory distress, No accessory muscle use, Other: - Decreased breath sounds b/l due to pain.. Negative: Crackles, Rhonchi, Stridor Cardiovascular: Positive: RRR Musculoskeletal: Positive: Other: - TTP over right rib which corresponds with X- ray findings of fx. Neurological: Positive: Alert Psychological: Positive: Normal Response To Family Skin Exam: Normal Skin: Positive: Other - no ecchymosis. Negative: Rashes, Breakdown Minor Trauma Course/Dx - Course Course Of Treatment: Rib Fracture, right side, without lung involvement - Pain medication as needed - Naproxen twice daily to decreased swelling, pain - GO to ER immediately with increased pain, Shortness of breath, fever - Frequent deep breathing to prevent pneumonia - Differential Dx/Diagnosis Differential Diagnosis/HQI/PQRI: Fracture, Dislocation, Sprain, Strain Provider Diagnosis: Rib fracture Discharge ED - Sign-Out/Discharge Documenting (check all that apply): Patient Departure All imaging exams completed and their final reports reviewed: Yes - Discharge Plan Condition: Good Disposition: HOME Prescriptions: oxyCODONE TAB* [Roxycodone TAB 5 mg*] 5 mg PO Q4H PRN #15 tab MDD 3 PRN Reason: Pain - Moderate oxyCODONE TAB* [Roxycodone TAB 5 mg*] 5 mg PO Q4H PRN #15 tab MDD 3 PRN Reason: Pain - Mild oxyCODONE TAB* [Roxycodone TAB 5 mg*] 5 mg PO Q4H PRN #15 tab MDD 3 PRN Reason: Pain - Severe Patient Education Materials: Rib Fracture (ED) Forms: *Work Release Referrals: Corey Sweeney, AUTOMOTIVE SERVICE DIRECTOR [Primary Care Provider] - Additional Instructions: Rib Fracture, right side, without lung involvement - Pain medication as needed - Naproxen twice daily to decreased swelling, pain - GO to ER immediately with increased pain, Shortness of breath, fever - Frequent deep breathing to prevent pneumonia - Billing Disposition and Condition Condition: GOOD Disposition: Home
== END 2019-07-25 16:55 | disposition home or self-care (01) ==
LOC: UCEAST 15:28
DX: S22.31XA Fracture of one rib, right side, initial encounter for closed fracture (principal); F17.290 Nicotine dependence, other tobacco product, uncomplicated; Z88.8 Allergy status to other drugs, medicaments and biological substances; Z88.5 Allergy status to narcotic agent; Z88.7 Allergy status to serum and vaccine; Z91.09 Other allergy status, other than to drugs and biological substances; W19.XXXA Unspecified fall, initial encounter; Y92.9 Unspecified place or not applicable
CPT/HCPCS: 99212; G0463

== ENCOUNTER 2019-08-18 20:13 | Emergency (ER) | payer MEDICARE ==
--- NOTE | 2019-08-18 20:55 | UC ---
Minor Trauma HPI - HPI Summary HPI Summary: The patient is a 44-year-old female that slipped and fell on water about 4:30 today striking the back of her head. She states she has a severe 10 out of 10 headache as well as 10 out of 10 back pain 10 out of 10 cervical pain. She has a history of ankylosing spondylitis. She has chronic numbness and loss of deep tendon reflexes in her legs. She is followed by a specialist for her ankylosing spondylitis. She has had chronic back pain for years. She did not break her skin or sustain any other injuries due to her fall. - History of Current Complaint Chief Complaint: UCUpperExtremity Stated Complaint: NECK AND BACK INJURY Time Seen by Provider: 08/18/19 20:33 Hx Obtained From: Patient Hx Last Menstrual Period: 1 week ago Onset/Duration: Sudden Onset, Lasting Weeks Onset Of Pain: Immediate Severity Initially: Severe Severity Currently: Severe Pain Intensity: 9 Pain Scale Used: 0-10 Numeric Mechanism Of Injury: Fall From A Standing Position Aggravating Factor(s): Ambulation, Movement, Weight Bearing Alleviating Factor(s): Nothing Associated Signs And Symptoms: Negative: Loss Of Consciousness, Ecchymosis, Swelling - Allergies/Home Medications Allergies/Adverse Reactions: Allergies Allergy/AdvReac Type Severity Reaction Status Date / Time diphenhydramine Allergy Intermediate Hives Verified 08/18/19 20:25 hydrocodone Allergy Intermediate Hives Verified 08/18/19 20:25 Influenza Virus Vaccines Allergy Intermediate Hives Verified 08/18/19 20:25 prednisone Allergy Intermediate Hives Verified 08/18/19 20:25 pneumococcal vaccine Allergy Hives Verified 08/18/19 20:25 pickles Allergy Severe Hives Uncoded 08/18/19 20:25 PPD Allergy Severe Hives Uncoded 08/18/19 20:25 bleach Allergy Hives Uncoded 08/18/19 20:25 Home Medications: Home Medications traZODone TAB* [Desyrel TAB*] 200 mg PO BEDTIME 08/18/19 [History Confirmed ] PMH/Surg Hx/FS Hx/Imm Hx Previously Healthy: Yes Endocrine History: Diabetes - no longer requires Rx - Surgical History Surgical History: Yes Surgery Procedure, Year, and Place: gastric sleeve 06/27/15. D & C - Family History Known Family History: Positive: Hypertension, Diabetes Family History: PT ADOPTED SO NOT CERTAIN OF FAMILY HX - Social History Alcohol Use: Rare Substance Use Type: Prescribed Substance Use Comment - Amount & Last Used: oxycodone Smoking Status (MU): Current Some Day Smoker Type: eCigphuc Length of Time of Smoking/Using Tobacco: 18 years When Did the Patient Quit Smoking/Using Tobacco: 2007 - Immunization History Most Recent Influenza Vaccination: doesn't get--allergic Most Recent Pneumonia Vaccination: none Review of Systems All Other Systems Reviewed And Are Negative: Yes Constitutional: Positive: Negative Skin: Positive: Negative Eyes: Positive: Negative ENT: Positive: Negative Respiratory: Positive: Negative Cardiovascular: Positive: Negative Gastrointestinal: Positive: Negative Genitourinary: Positive: Negative Motor: Positive: Negative Neurovascular: Positive: Negative, Decreased Sensation - below knees (chronic) Musculoskeletal: Positive: Arthralgia - neck and back Neurological: Positive: Headache Psychological: Positive: Negative Physical Exam Triage Information Reviewed: Yes Appearance: Well-Appearing, No Pain Distress, Well-Nourished, Other: - sitting on gurney with legs crossed using her phone Vital Signs: Initial Vital Signs Temp 98.2 F 08/18/19 20:19 Pulse 93 08/18/19 20:19 Resp 17 08/18/19 20:19 BP 127/83 08/18/19 20:19 Pulse Ox 99 08/18/19 20:19 Vital Signs Reviewed: Yes Eyes: Positive: Conjunctiva Clear ENT: Positive: Hearing grossly normal. Negative: Trismus, Muffled voice, Hoarse voice Dental Exam: Normal Neck: Positive: Other: - midline necervical tenderness/waldo collar applied Respiratory: Positive: Lungs clear, Normal breath sounds, No respiratory distress, No accessory muscle use Cardiovascular: Positive: RRR, No Murmur Musculoskeletal: Positive: ROM Intact, No Edema Neurological: Positive: Alert, Other: - + 1 knee jerks, 0 ankle jerks, toes down going, cn2-12 intact, GCS 15/15, gait not tested decreased sensation below knee (chronic) Psychological Exam: Normal Skin Exam: Normal Diagnostics - Radiology No standard instances Radiology Interpretation Completed By: ED Physician - I jb no acute findings t- spine and l-spine, Radiologist Summary of Radiographic Findings: CT of neck and brain Negative Minor Trauma Course/Dx - Differential Dx/Diagnosis Provider Diagnosis: Fall, Cervical strain, acute, Thoracolumbar back pain Discharge ED - Sign-Out/Discharge Documenting (check all that apply): Patient Departure All imaging exams completed and their final reports reviewed: No - Discharge Plan Condition: Stable Disposition: HOME Patient Education Materials: Cervical Strain (ED), Back Pain (ED), Head Injury (ED) Referrals: Corey Sweeney NP [Primary Care Provider] - 1 Week Additional Instructions: I saw no fractures of the thoracic or lumbar spine. The official XR results will be tomorrow AM and we will contact you if the radiologist. The CT of your head and neck showed no fracture or brain injury soft cervical collar - Billing Disposition and Condition Condition: STABLE Disposition: Home
[2019-08-18] MEDS ORDERED: Acetaminophen TAB* 325 MG PO ONE (22:12)
[2019-08-18 23:04] VITALS: BP 138/74
== END 2019-08-18 23:00 | disposition home or self-care (01) ==
LOC: UCEAST 20:13
DX: S16.1XXA Strain of muscle, fascia and tendon at neck level, initial encounter (principal); M54.6 Pain in thoracic spine; M54.5 Low back pain; M45.9 Ankylosing spondylitis of unspecified sites in spine; R20.0 Anesthesia of skin; E11.9 Type 2 diabetes mellitus without complications; F17.290 Nicotine dependence, other tobacco product, uncomplicated; G89.29 Other chronic pain; Z88.8 Allergy status to other drugs, medicaments and biological substances; Z88.5 Allergy status to narcotic agent; Z88.7 Allergy status to serum and vaccine; Z91.09 Other allergy status, other than to drugs and biological substances; W01.0XXA Fall on same level from slipping, tripping and stumbling without subsequent striking against object, initial encounter; Y92.9 Unspecified place or not applicable
CPT/HCPCS: 70450; 72070; 72110; 72125; 99213; A9270-GY; G0463

== ENCOUNTER 2019-11-21 19:38 | Emergency (ER) | payer MEDICARE ==
--- OUTSIDE RECORDS SUMMARY | 2019-11-21 20:16 | XMS REPORT ---
:1975 Author Organization [facility] Care Team Providers Name Role Phone Tyrell Amin Primary Care Physician Unavailable Allergies, Adverse Reactions, Alerts Allergy Code CodeSystem Reaction Severity Criticality Status Start Substance Date Moderate Medications Medication Medication Medication Start Stop Route Dose Status Fill Code CodeSystem Date Date Instructions clonidine HCl 327923 RxNorm 2019- oral 0.1 mg active for 30 05-02-08 tablet day(s) alprazolam 118994 RxNorm 2019- oral 0.5 mg completed for 30 05-02 08-07 tablet day(s) fluoxetine 479009 RxNorm 2019- oral 10 mg completed for 30 04-18-18 capsule day(s) alprazolam 056772 RxNorm 0 2019- oral 0.5 mg completed for 30 12-30 05-05 tablet day(s) trazodone 632637 RxNorm 2019- oral 100 mg active for 30 - 11-19 tablet day(s) fluoxetine 072222 RxNorm 2018- 2019- oral 20 mg completed for 30 - 06-24 capsule day(s) fluoxetine 863186 RxNorm 2019-0 2019- oral 20 mg completed for 30 -19 07-18 capsule day(s) fluoxetine 325044 RxNorm 2018-0 2019- oral 10 mg completed for 30 - 04-26 capsule day(s) alprazolam 177993 RxNorm 2018-0 2019- oral 0.5 mg active for 30 - 11-06 tablet day(s) fluoxetine 046564 RxNorm 20190 2019- oral 10 mg completed for 30 - 06-24 capsule day(s) alprazolam 744445 RxNorm 0 2019- oral 0.5 mg completed for 30 - 07-05 tablet day(s) clonidine HCl 542709 RxNorm 2019- oral 0.1 mg 1 completed Take 1 tablet 05-02- tablet three times three a day for 30 times a day(s) day alprazolam 274144 RxNorm 2018- oral 0.5 mg 1 completed Take 1 tablet 02-28- tablet twice a day twice a as needed for day 30 day(s) trazodone 532261 RxNorm 2017-10 2019- oral 100 mg completed for 30 - 08-12 tablet day(s) fluoxetine 244881 RxNorm 2019- oral 20 mg completed for 30 1- 04-26 capsule day(s) mirtazapine 924693 RxNorm 2018- oral 15 mg completed Take 1-2 05-27 1-2 tablet at tablet bedtime as at needed for 30 bedtime day(s) fluoxetine 689827 RxNorm 2019- oral 10 mg active for 30 9-18 12-17 capsule day(s) fluoxetine 883360 RxNorm 2019- oral 20 mg active for 30 9-18 12-17 capsule day(s) Problems Problem Name Code CodeSystem Alternate Alternate Start End Status Narrative Code CodeSystem Date Date 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, unspecified Generalized 25633269 SNOMED-CT Active anxiety 4-04 disorder Relevant diagnostic tests/laboratory data Narrative No Information Procedures Procedure Code CodeSystem Target Date of Status Service Device Device Device Name Site Procedure Delivery Code Name UID Location Psychotherap 474343 SNOMED-CT () 2019-02-01 complete Mental y, 45 04 d Health- minutes with [place] patient [address], [id number] [phone] Psychotherap [id number] SNOMED-CT () 2019-02-21 complete Mental y, 45 04 d Health- minutes with [place] patient [address], [id number] Psychotherap [id number] SNOMED-CT () 2019-03-07 complete Mental y, 45 04 d Health- minutes with [address], [id number] [id number] Psychotherap [id number] SNOMED-CT () 2019-03-25 complete Mental y, 45 04 d Health- minutes with [place] patient [address], [id number] [phone] Psychotherap [id number] SNOMED-CT () 2019-04-22 complete Mental y, 45 04 d Health- minutes with [place] patient [address], [id number] [id number] Psychotherap 213159 SNOMED-CT () 2019-08-22 complete Mental y, 45 04 d Health- minutes with [place] patient [address], [id number] [phone] Office or [id number] SNOMED-CT () 2019-05-02 complete Mental other 7 d Health- outpatient [place] visit for [address], established [id number] patient, [phone] which requires at least 2 of these 3 powell components: An expanded problem focused history; An expanded problem focused examination; Medical decision making of low Office or [id number] SNOMED-CT () 2019-05-27 complete Mental other 7 d Health- outpatient [place] visit for [address], established [id number] patient, [id number] which requires at least 2 of these 3 powell components: An expanded problem focused history; An expanded problem focused examination; Medical decision making of low Office or [id number] SNOMED-CT () 2019-08-31 complete Mental other 6 d Health- outpatient [place] visit for [address], established [id number] patient, [id number] which requires at least 2 of these 3 powell components: A problem focused history; A problem focused examination; Straightforw lilly medical decision making. Counselin Office or [id number] SNOMED-CT () 2019-03-01 complete Mental other 8 d Health- outpatient [place] visit for [address], established [phone] patient, [id number] which requires at least 2 of these 3 powell components: A detailed history; A detailed examination; Medical decision making of moderate complexity. Counseling and/o SNOMED-CT () 2019-05-06 complete [facility] [address] [place], [place], [id number] [id number] SNOMED-CT () 2019-05-20 complete [facility] d [facility] [address] [place], [place], [id number] [id number] SNOMED-CT () 2019-01-24 complete [facility] [address] [place], [place], [id number] [id number] Encounters/Encounter Diagnoses Encounter Name Encounter Diagnosis Diagnosis Diagnosis Date of Service Code Code Name CodeSystem Diagnosis Delivery Location [facility] [id number] Post-traumati SNOMED-CT 2019-08-31 Behavioral Established c stress Health patient 10 disorder, Clinic [address] [place], [place], [id number] Vital Signs No Information Social History Element Description Description Start End Code CodeSystem AdditionalInfo Date Date SexAssignedAtBirth Female 1974-0 F AdministrativeGender 3-11 Hospital Discharge Instructions Reason For Referral Medical Equipment FDA Assessments
--- OUTSIDE RECORDS SUMMARY | 2019-11-21 20:16 | XMS REPORT | Continuity of Care Document ---
:1975 External Reference #:[id number] Author Name Corey Sweeney NP (transmitted by agent of provider Pat Glez) Address [address], [address] [place] [id number] Care Team Providers Name Role Phone Thais Black MD - Internal Medicine Care Team Information Agent Producer [phone] Problems Active Problems Provider Date Polyneuropathy Marc Chew M.D. Onset: 09/19/2014 Arthritis Onset: Diabetes mellitus Onset: Anxiety Onset: Liver mass Onset: Social History Type Date Description Comments Sex Unknown ETOH Use Denies alcohol use Tobacco Use Start: Unknown End: Patient is a former Quit 2007; max 1ppd, Unknown smoker began age20 Smoking Status Reviewed: 09/23/19 Patient is a former Quit 2007; max 1ppd, smoker began age20 Exercise 09/23/2016 Exercises sporadically bowls 1-3x/week Type/Frequency Allergies, Adverse Reactions, Alerts Active Allergies Reaction Severity Comments Date Prednisone Hives 06/06/2014 Benadryl Hives 06/06/2014 Flu Virus Vaccine Hives 06/06/2014 PPD Test Hives 06/06/2014 Hydrocodone Hives 06/06/2014 Medications Active Medications SIG Qnty Indications Ordering Date Provider Plaquenil take 2 by mouth 60tabs Rajesh Miles, 08/10/2019 200mg daily ongoing M.D. Tablets Q12-Emrisu take one 90units Rajesh Miles, 11/16/2018 1mg capsule/tablet daily M.D. Chewtabs sublingually Tizanidine HCL take 1/2-1 tablet by 60tabs Corey Sweeney NP 11/15/2018 4mg mouth twice a day as Tablets directed for chronic pain Oxycodone HCL 1 by mouth three 90tabs G89.29 Corey Sweeney, DAVID 10/06/2018 5mg times daily as Tablets needed ( claim # [id number]) Xtampza ER one tab twice daily 60units G89.29 Corey Sweeney NP 10/06/2018 9mg C12a ( claim # [id number]) Knee Sleeve/Open wear on right knee 1units S81.011D Corey Sweeney NP 2017 Patella/Medium/Neop as needed. reva Misc Onetouch Delica Unknown Lancets Fine 30G 30G Misc Onetouch Verio Unknown Strips Onetouch Verio Iq Use as Directed Unknown Blood Glucose Monitoring System w/Device Kit Xanax 1 to 2 tabs as Unknown 0.5mg Tablets needed for severe anxiety attack up to two times a day Fluoxetine HCL 1 by mouth every day Unknown 10mg Capsules Fluoxetine HCL 1 by mouth every day Unknown 20mg Capsules Trazodone HCL 1-3 tabs every night Unknown 100mg at bedtime Tablets Clonidine HCL Take 1 Tablet By Unknown 0.1mg Mouth Three Times A Tablets Day Medications Administered in Office Medication SIG Qnty Indications Ordering Provider Date Dexamethasone Sodium Bobo Potter MD 09/23/2016 Phosphate, 1 MG Injection Immunizations CPT Code Status Date Vaccine Reaction Lot # [id number] Given 08/21/2017 Pneumonia Vaccine Pt. tolerated well. No reaction [id number] noted. Vital Signs Date Vital Result Comment 09/23/2019 8:33am Height 66 inches 5'6" Weight 232.00 lb Heart Rate 82 /min BP Systolic Sitting 112 mmHg BP Diastolic Sitting 79 mmHg Body Temperature 97.0 F O2 % BldC Oximetry 96 % BMI (Body Mass Index) 37.4 kg/m2 07/07/2019 4:15pm Height 66 inches 5'6" Weight 232.50 lb Heart Rate 72 /min BP Systolic Sitting 122 mmHg BP Diastolic Sitting 78 mmHg Pain Level 6 O2 % BldC Oximetry 98 % BMI (Body Mass Index) 37.5 kg/m2 Results Test Acquired Date Facility Test Result H/L Range Note Drug Abuse 03/25/2019 [facility] Urine Presumptive Abnormal [address] Amphetamine Posi <SEE NOTE> [place] [address] ng/mL [phone] Urine Barbiturates Negative ng/mL 2 Urine Benzodiazepines Presumptive Posi <SEE NOTE> Abnormal 3 ng/mL Urine Cocaine Negative ng/mL 4 Urine Phencyclidine Negative ng/mL Cutoff: 25 Urine Tetrahydrocannabinol Negative ng/mL Cutoff: 50 5 Creatinine, Urine 200.6 mg/dL Specific Trevor 1.019 pH 5.6 Oxidants Negative 6 Adulterants Comment Normal Codeine, Ur Not Detected ng/mL Cutoff: 25 7 Vitsggq-6-mxks-glucuronide, Ur Not Detected ng/mL 8 Morphine, Ur Not Detected ng/mL Cutoff: 25 9 Unfpbyxn-9-uqrq-glucuronide, U Not Detected ng/mL 10 6-monoacetylmorphine, Ur Not Detected ng/mL Cutoff: 25 11 Hydrocodone, Ur Not Detected ng/mL Cutoff: 25 12 Norhydrocodone, Ur Not Detected ng/mL Cutoff: 25 13 Dihydrocodeine, Ur Not Detected ng/mL Cutoff: 25 14 Hydromorphone, Ur Not Detected ng/mL Cutoff: 25 15 Vpfuvgxtcjbso0lxkajoiqsfvrepl Not Detected ng/mL 16 Oxycodone, Ur Present ng/mL Abnormal Cutoff: 25 17 Noroxycodone, Ur Present ng/mL Abnormal Cutoff: 25 18 Oxymorphone, Ur Not Detected ng/mL Cutoff: 25 19 Knkmtugztpx-5-ykix-glucuronide Present ng/mL Abnormal 20 Noroxymorphone, Ur Present ng/mL Abnormal Cutoff: 25 21 Fentanyl, Ur Not Detected ng/mL Cutoff: 2 22 Norfentanyl, Ur Not Detected ng/mL Cutoff: 2 23 Meperidine, Ur Not Detected ng/mL Cutoff: 25 24 Normeperidine, Ur Not Detected ng/mL Cutoff: 25 25 Naloxone, Ur Not Detected ng/mL Cutoff: 25 26 Epnyviwk-4-zrpi-glucuronide, U Not Detected ng/mL 27 Methadone, Ur [...] Ur Not Detected ng/mL Cutoff: 50 35 Zizpvicafl-sgza-tycelvuxlah, U Not Detected ng/mL 36 Buprenorphine, Ur Not Detected ng/mL Cutoff: 5 37 Norbuprenorphine, Ur Not Detected ng/mL Cutoff: 5 38 Norbuprenorphine glucuronide Not Detected ng/mL Cutoff: 20 39 Opioid Interpretation See Comment 40 Urine 03/25/2019 [facility] Urine Negative Cutoff: [address] Amphetamine by ng/[place] [address] GC/MS [phone] Urine Methamphetamine by GC/MS Negative ng/mL Cutoff: 25 Phentermine-by GC/MS Negative ng/mL Cutoff: 25 Pseudoephedrine/Ephedr GC/MS Negative ng/mL Cutoff: 25 Mda(Ecstacy metabolite) GC/MS Negative ng/mL Cutoff: 25 Mdma(Ecstacy)-by GC/MS Negative ng/mL Cutoff: 25 Urine Amphetamines Interp Negative. 41 Urine Benzodiazepines 03/25/2019 [facility] Urine Negative [address] Lorazepam ng/[place] [address] GC/MS [phone] Urine Nordiazepam GC/MS Negative ng/mL 43 Urine [...] ng/mL 49 Ur Benzodiazepine Interp Positive. 50 1 Presumptive Positive Drug confirmation to follow. [...] codeine REFERENCE VALUE Cutoff: 100 9 Portia Rivear, MS Contin; Also a minor metabolite (10%) of codeine and can be seen in low concentrations (<2,000 ng/mL) with poppy seed ingestion. 10 Metabolite of morphine REFERENCE VALUE Cutoff: 100 11 Metabolite of heroin 12 Lortab, Erwin, Vicodin; Also a very minor metabolite of [...] oxycodone and several metabolites (noroxycodone, noroxymorphone, and knbcijkzsjg-8-igfd-glucuronide). Suspect use of oxycodone and/or oxymorphone within the past three days. ADDITIONAL INFORMATION This test was developed and its performance characteristics determined by [facility] in a manner consistent with CLIA requirements. This test has not been cleared or approved by the U.S. Food and Drug Administration. Test Performed by: [facility] [employer] - [facility] [address] [place] [phone] ADDITIONAL INFORMATION This report is intended for use in clinical monitoring and management of patients. It is not intended for use in employment-related testing. This test was developed and its performance characteristics determined by [facility] in a manner consistent with CLIA requirements. This test has not been cleared or approved by the U.S. Food and Drug Administration. Test Performed by: [facility] [employer] - [address] [phone] REFERENCE VALUE Cutoff: 100 43 REFERENCE [...] and its performance characteristics determined by [facility] in a manner consistent with CLIA requirements. This test has not been cleared or approved by the U.S. Food and Drug Administration. Test Performed by: [facility] - [facility] [address] [place] [id number] Procedures Date Code Description Status 09/23/2016 [id number] Diabetic Retinal Eye Exam Completed Medical Devices Description No Information Available Encounters Type Date Location Provider Dx Diagnosis Office Visit 07/07/2019 Rheumatology Rajesh Miles, M46.90 Unspecified 3:40p [facility] inflammatory spondylopathy, site unspecified R70.0 Elevated erythrocyte sedimentation rate Z79.899 Other program manager slp (current) drug therapy M54.5 Low back pain R06.83 Snoring Office Visit 06/22/2019 3:40p [facility] Internal Corey Sweeney NP M54.5 Low back pain Medicine - [facility] Assessments Date Code Description Provider 09/23/2019 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 unspecified 07/07/2019 R70.0 Elevated erythrocyte sedimentation rate Rajesh Miles M.D. 07/07/2019 Z79.899 Other program manager slp (current) drug therapy Rajesh Miles M.D. 07/07/2019 M54.5 Low back pain Rajesh Miles M.D. 07/07/2019 R06.83 Snoring Rajesh Miles M.D. 06/22/2019 M54.5 Low back pain Corey Sweeney NP 03/25/2019 M54.5 Low back pain Nurse Visit A Plan of Treatment Future Appointment(s):11/09/2019 9:40 am - Corey Sweeney NP at [facility] Internal Medicine - [facility]12/23/2019 8:40 am - Corey Sweeney NP at [facility] - [facility]10/06/2019 3:20 pm - Rajesh Miles M.D. at [facility] - Corey Sweeney NPM51.16 Intervertebral disc disorders with radiculopathy , lumbar regionNew Xrays:MRI Lumbar Spine W/O, Ordered: 09/23/19Comments:Based on the increased frequency of falls/near falls, I am ordering an MRI of your lumbar spine. Continue with current medications.Follow up:PE at pt. choice. W/ C f/u 3 months Functional Status Description No Information Available Mental Status Description No Information Available Referrals Refer to Reason for Referral Status Appt Date Nick Christianson MD Please monitor for Plaquenil toxicity Sent [address] [place] [address] [phone] [facility] Sleep [facility] Please evaluate for sleep apnea Sent [address] [place] [address] [phone]
--- NOTE | 2019-11-21 21:43 | UC ---
Respiratory Complaint HPI - HPI Summary HPI Summary: 44 yo with a hx of pneumonia 3 years ago, with several days of cough and shortness of breath. She has used her son's inhaler in the past but not currently because it is not available. She has felt wheezy and tight in her chest. Subjective fever (temp not take), chills and myalgias. - History of Current Complaint Chief Complaint: UCRespiratory Stated Complaint: CHEST PAIN, SOB Time Seen by Provider: 11/21/19 19:40 Hx Obtained From: Patient Hx Last Menstrual Period: 1 week ago Onset/Duration: Gradual Onset, Lasting Days Pain Intensity: 3 Character: Cough: Nonproductive Alleviating Factors: OTC Meds Associated Signs And Symptoms: Positive: Dyspnea, Nasal Congestion, Hoarseness - Risk Factors Cardiac Risk Factors: Diabetes - pre-diabetes Pseudomonas Risk Factors: Negative Tuberculosis Risk Factors: Negative - Allergies/Home Medications Allergies/Adverse Reactions: Allergies Allergy/AdvReac Type Severity Reaction Status Date / Time diphenhydramine Allergy Intermediate Hives Verified 11/21/19 19:45 hydrocodone Allergy Intermediate Hives Verified 11/21/19 19:45 Influenza Virus Vaccines Allergy Intermediate Hives Verified 11/21/19 19:45 prednisone Allergy Intermediate Hives Verified 11/21/19 19:45 pneumococcal vaccine Allergy Hives Verified 11/21/19 19:45 pickles Allergy Severe Hives Uncoded 11/21/19 19:45 PPD Allergy Severe Hives Uncoded 11/21/19 19:45 bleach Allergy Hives Uncoded 11/21/19 19:45 PMH/Surg Hx/FS Hx/Imm Hx Previously Healthy: No - chronic pain, overweight, prediabetes. Respiratory History: Bronchitis, Pneumonia - Surgical History Surgical History: Yes Surgery Procedure, Year, and Place: gastric sleeve 06/27/15. D & C - Family History Known Family History: Positive: Unknown Family History: PT ADOPTED SO NOT CERTAIN OF FAMILY HX - Social History Occupation: Employed Full-time Lives: With Family Alcohol Use: Rare Substance Use Type: Prescribed Substance Use Comment - Amount & Last Used: oxycodone Smoking Status (MU): Former Smoker Type: eCigarettes Length of Time of Smoking/Using Tobacco: 18 years When Did the Patient Quit Smoking/Using Tobacco: 2007 - Immunization History Most Recent Influenza Vaccination: doesn't get--allergic Most Recent Pneumonia Vaccination: none Review of Systems All Other Systems Reviewed And Are Negative: Yes Constitutional: Positive: Fatigue Skin: Positive: Negative Eyes: Positive: Negative ENT: Positive: Sore Throat, Sinus Pain/Tenderness Respiratory: Positive: Shortness Of Breath, Cough Cardiovascular: Positive: Chest Pain - initial complaint of chest pain addressed with EKG: normal Gastrointestinal: Positive: Negative Genitourinary: Positive: Negative Motor: Positive: Negative Neurovascular: Positive: Negative Musculoskeletal: Positive: Myalgia Neurological: Positive: Negative Psychological: Positive: Negative Is Patient Immunocompromised?: No Physical Exam Triage Information Reviewed: Yes Appearance: No Pain Distress, Obese Vital Signs: Initial Vital Signs Temp 97.9 F 11/21/19 19:42 Pulse 82 11/21/19 19:42 Resp 17 11/21/19 19:42 BP 115/42 11/21/19 19:42 Pulse Ox 99 11/21/19 19:42 ENT: Positive: Pharynx normal, TMs normal Neck: Positive: Supple, Nontender, No Lymphadenopathy Respiratory: Positive: No respiratory distress, Decreased breath sounds, Wheezing - upper lung ward Cardiovascular: Positive: RRR, No Murmur Musculoskeletal Exam: Normal Neurological Exam: Normal Psychological Exam: Normal Skin Exam: Normal Diagnostics - EKG Cardiac Rate: NL Cardiac Rhythm: Sinus: Normal Ectopy: None ST Segment: Normal Respiratory Course/Dx - Course Course Of Treatment: azithromycin and albuterol states allergic to prednisone and decline rx. - Differential Dx/Diagnosis Differential Diagnosis/HQI/PQRI: Bronchitis, Laryngitis, Lower Resp Infection, Sinusitis Provider Diagnosis: Bronchitis Discharge ED - Sign-Out/Discharge Documenting (check all that apply): Patient Departure All imaging exams completed and their final reports reviewed: No Studies - Discharge Plan Condition: Stable Disposition: HOME Prescriptions: Azithromycin TAB* [Zithromax TAB (Z-KVNG) 250 mg #6 tabs] 250 mg PO DAILY #4 tab Patient Education Materials: Acute Bronchitis (ED) Referrals: Corey Sweeney NP [Primary Care Provider] - - Billing Disposition and Condition Condition: STABLE Disposition: Home
[2019-11-21] MEDS ORDERED: Azithromycin TAB* 250 MG PO ONE (21:48)
[2019-11-21] MEDS ORDERED: Albuterol HFA INHALER* 8 gm MDI INH ONE (21:49)
[2019-11-21 22:00] VITALS: BP 106/70
== END 2019-11-21 22:02 | disposition home or self-care (01) ==
LOC: UCCORT 19:38
DX: J40 Bronchitis, not specified as acute or chronic (principal); M79.10 Myalgia, unspecified site; Z88.9 Allergy status to unspecified drugs, medicaments and biological substances; Z88.7 Allergy status to serum and vaccine; Z88.8 Allergy status to other drugs, medicaments and biological substances; Z91.018 Allergy to other foods; Z87.891 Personal history of nicotine dependence
CPT/HCPCS: 93005; 99213; A9270-GY; G0463